=== PATIENT | female | born 2000 | race Hispanic/Latino ===

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

== ENCOUNTER 2019-03-19 21:02 | Emergency (ER) | payer BC, SELFPAY ==
[2019-03-19] MEDS ORDERED: ONDANSETRON 4 MG/2 ML VIAL ONE (21:52)
[2019-03-19] MEDS ORDERED: FAMOTIDINE 20 MG/2 ML VIAL IV ONE (21:52)
[2019-03-19 21:55] LABS: Absolute Lymphocytes (CBC) 2.5 K/uL (0.7-4.9); Basophils % 0.4 % (0-1.3); Hematocrit 41.8 % (36.0-45.0); Lymphocytes % 21.3 % (15.3-44.8); MPV 9.7 fL (7.6-11.3); RBC Red Blood Cell Count 4.53 M/uL (3.86-4.86)
[2019-03-19 22:10] LABS: ALT/SGPT 14 U/L (12-78); AST/SGOT 12 U/L (15-37); Albumin 4.1 g/dL (3.4-5.0); Alkaline Phosphatase 80 U/L (45-117); BUN Blood Urea Nitrogen 10 mg/dL (7-18); Bicarbonate 25 mmol/L (21-32); Bilirubin Direct 0.1 mg/dL (0-0.2); Bilirubin Total 0.5 mg/dL (0.2-1.0); Glucose Level 116 mg/dL (74-106); Lipase 171 U/L (73-393); Potassium 3.7 mmol/L (3.5-5.1); Protein, Total 7.1 g/dL (6.4-8.2); Sodium Level 142 mmol/L (136-145)
[2019-03-19] MEDS ORDERED: KETOROLAC 30 MG/ML INJ ONE (22:42)
[2019-03-19 23:02] LABS: Urine Specific Gravity 1.015 (1.005-1.030)
[2019-03-19 23:02] LABS: Urine Blood NEGATIVE (NEG); Urine Glucose TRACE (NEG); Urine Protein NEGATIVE (NEG); Urine Specific Gravity 1.015 (1.005-1.030)
[2019-03-19] MEDS ORDERED: CEFTRIAXONE/SWI 1gm 1 GM/10 ML SYR ONE (23:42)
--- NOTE | 2019-03-19 23:43 | ER ---
Nurse's Notes [facility] Name: Radha Kuhn Age: 18 yrs Sex: Female : 2000 Arrival Date: 03/19/2019 Time: 21:04 Bed 16 Private MD: Diagnosis: Other chest pain-wall;Urinary tract infection, site not specified Presentation: 03/19 21:09 Presenting complaint: Patient states: Her midsternal chest pain that radiates to the aj1 back, since 8:00 tonight and then 30 minutes later while she was walking home she started throwing up. Denies fever. Transition of care: patient was not received from another setting of care. Onset of symptoms was March 19, 2019 at 20:00. Risk Assessment: Do you want to hurt yourself or someone else? Patient reports no desire to harm self or others. Initial Sepsis Screen: Does the patient meet any 2 criteria? HR > 90 bpm. No. Patient's initial sepsis screen is negative. Does the patient have a suspected source of infection? No. Patient's initial sepsis screen is negative. Care prior to arrival: None. 21:09 Method Of Arrival: Ambulatory aj1 21:09 Acuity: BHAKTI 3 aj1 Triage Assessment: 21:11 General: Appears uncomfortable, Behavior is calm, cooperative, appropriate for age. aj1 Pain: Complains of pain in chest Pain radiates to back Pain currently is 5 out of 10 on a pain scale. Cardiovascular: Patient's skin is warm and dry. 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 - Social history:: Smoking status: Patient uses tobacco products, smokes one-half pack cigarettes per day, Patient/guardian denies using alcohol, street drugs. - Ebola Screening: : Patient denies travel to an Ebola-affected area in the 21 days before illness onset. - Family history:: not pertinent. Screenin:15 Abuse screen: Denies threats or abuse. Denies injuries from another. Nutritional aa1 screening: No deficits noted. Tuberculosis screening: No symptoms or risk factors identified. Fall Risk None identified. Assessment: 21:15 General: Appears in no apparent distress. General: Appears uncomfortable, Behavior is aa1 appropriate for age, crying. Pain: Complains of pain in chest Pain currently is 5 out of 10 on a pain scale. Quality of pain is described as pressure, Is intermittent. Neuro: Level of Consciousness is awake, alert, obeys commands, Oriented to person, place, time, situation, Moves all extremities. Full function Gait is steady. Cardiovascular: Reports chest pain, nausea, Heart tones S1 S2 present Capillary refill < 3 seconds Clubbing of nail beds is absent JVD is absent Patient's skin is warm and dry. Rhythm is regular Chest pain is described as vague, radiates back episodes are intermittent. Respiratory: Airway is patent Respiratory effort is even, unlabored, Respiratory pattern is regular, symmetrical, Breath sounds are clear bilaterally. GI: Abdomen is non-distended, Abd is soft and non tender X 4 quads. Reports nausea, vomiting. : No signs and/or symptoms were reported regarding the genitourinary system. EENT: No signs and/or symptoms were reported regarding the EENT system. Derm: Skin is intact, is healthy with good turgor, Skin is pink, warm \T\ dry. Musculoskeletal: Circulation, motion, and sensation intact. Capillary refill < 3 seconds, Range of motion: intact in all extremities. 22:00 Reassessment: Patient appears in no apparent distress at this time. Patient and/or aa1 family updated on plan of care and expected duration. Pain level reassessed. Patient is alert, oriented x 3, equal unlabored respirations, skin warm/dry/pink. Pt continues to await initial assessment from ERP. 22:53 Reassessment: Patient appears in no apparent distress at this time. Patient and/or aa1 family updated on plan of care and expected duration. Pain level reassessed. Patient is alert, oriented x 3, equal unlabored respirations, skin warm/dry/pink. Awaiting x-ray. 23:16 Reassessment: Patient appears in no apparent distress at this time. Patient is alert, aa1 oriented x 3, equal unlabored respirations, skin warm/dry/pink. Pt taken to x-ray at this time. 03/20 00:15 Reassessment: Patient appears in no apparent distress at this time. Patient is alert, aa1 oriented x 3, equal unlabored respirations, skin warm/dry/pink. Discussed d/c \T\ f/u instructions with pt \T\ mother; denies questions or concerns at this time. Ambulatory to lobby with steady gait Patient states feeling better. Patient states symptoms have improved. Vital Signs: 03/19 21:11 BP 130 / 98; Pulse 120; Resp 20; Temp 98.4; Pulse Ox 98% on R/A; Weight 65.77 kg (R); aj1 Height 4 ft. 11 in. (149.86 cm) (R); 21:37 BP 114 / 78; Pulse 94; Resp 20; Pulse Ox 100% on R/A; Pain 5/10; aa1 22:53 BP 120 / 73; Pulse 72; Resp 20; Pulse Ox 99% on R/A; Pain 2/10; aa1 03/20 00:15 BP 121 / 75; Pulse 76; Resp 16; Temp 98.1; Pulse Ox 100% on R/A; Pain 2/10; aa1 03/19 21:11 Body Mass Index 29.29 (65.77 kg, 149.86 cm) aj1 ED Course: 03/19 21:04 Patient arrived in ED. ds1 21:11 Triage completed. aj1 21:12 Shai Meyers MD is Attending Physician. eugenia 21:15 Patient has correct armband on for positive identification. Placed in gown. Bed in low aa1 position. Call light in reach. threat monitoring analyst on. Pulse ox on. NIBP on. Warm blanket given. 21:15 Patient maintains SpO2 saturation greater than 95% on room air. aa1 21:31 Anali Obregon, RN is Primary Nurse. aa1 21:45 Initial lab(s) drawn, by nh, sent to lab. EKG done, by ED staff, reviewed by Shai Meyers MD. Inserted saline lock: 20 gauge in left antecubital area, using aseptic technique. Blood collected. 22:09 D-Dimer Sent. ds4 22:09 Basic Metabolic Panel Sent. ds4 22:09 Hepatic Function Sent. ds4 22:09 Lipase Sent. ds4 22:23 Radiology exam delayed due to test not completed at this time. sw 23:45 Urine Culture Sent. aa1 03/20 00:15 No provider procedures requiring assistance completed. IV discontinued, intact, aa1 bleeding controlled, No redness/swelling at site. Pressure dressing applied. 00:57 Chest Pa And Lat (2 Views) XRAY In Process Unspecified. EDMS Administered Medications: 03/19 21:53 Drug: Pepcid 20 mg Route: IVP; Site: left antecubital; aa1 22:48 Follow up: Response: No adverse reaction; Marked relief of symptoms aa1 21:54 Drug: Zofran 4 mg Route: IVP; Site: left antecubital; aa1 22:48 Follow up: Response: No adverse reaction; Marked relief of symptoms aa1 22:47 Drug: TORadol 30 mg Route: IVP; Site: left antecubital; aa1 23:38 Follow up: Response: No adverse reaction; Pain is decreased aa1 22:47 CANCELLED (Duplicate Order): Pepcid 20 mg IVP once aa1 23:46 Drug: Rocephin 1 grams Route: IV; Rate: per protocol; Site: left antecubital; aa1 23:51 Follow up: IV Status: Completed infusion; IV Intake: 10ml aa1 Intake: 23:51 IV: 10ml; Total: 10ml. aa1 Outcome: 23:42 Discharge ordered by . eugeina 03/20 00:15 Discharged to home ambulatory, with family. aa1 Condition: good Discharge instructions given to patient, family, Instructed on discharge instructions, follow up and referral plans. medication usage, Demonstrated understanding of instructions, follow-up care, medications, Prescriptions given X 4. 00:16 Patient left the ED. aa1 Signatures: Dispatcher [employer] EDMS Kristin Ferraro, RN RN [email or web address] Anali Obregon RN RN aa1 Shai Meyers MD MD cha Sanford, Susan hsu1 Jimmie Gomez4 Flory Xiong
--- NOTE | 2019-03-19 23:43 | EDPHYS ---
Physician Documentation [facility] Name: Radha Kuhn Age: 18 yrs Sex: Female : 2000 Arrival Date: 03/19/2019 Time: 21:04 Bed 16 Private MD: ED Physician Shai Meyers HPI: 03/19 22:07 This 18 yrs old Female presents to ER via Ambulatory with complaints of Chest eugenia Pain, Nausea/Vomiting. 22:07 The patient or guardian reports chest pain that is located primarily in the anterior [facility] chest wall. The pain does not radiate. Associated signs and symptoms: The patient has no apparent associated signs or symptoms. The chest pain is described as aching. Duration: The patient or guardian reports multiple episodes, that wax and wane. Modifying factors: The symptoms are alleviated by remaining still, the symptoms are aggravated by activity, deep breath. Severity of pain: At its worst the pain was mild moderate in the emergency department the pain is unchanged. The patient has not experienced similar symptoms in the past. 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 - Social history:: Smoking status: Patient uses tobacco products, smokes one-half pack cigarettes per day, Patient/guardian denies using alcohol, street drugs. - Ebola Screening: : Patient denies travel to an Ebola-affected area in the 21 days before illness onset. - Family history:: not pertinent. ROS: 22:07 Constitutional: Negative for fever, chills, and weight loss, Eyes: Negative for injury, eugenia pain, redness, and discharge, ENT: Negative for injury, pain, and discharge, Neck: Negative for injury, pain, and swelling, Abdomen/GI: Negative for abdominal pain, nausea, vomiting, diarrhea, and constipation, Back: Negative for injury and pain, : Negative for injury, bleeding, discharge, and swelling, MS/Extremity: Negative for injury and deformity, Skin: Negative for injury, rash, and discoloration, Neuro: Negative for headache, weakness, numbness, tingling, and seizure, Psych: Negative for depression, anxiety, suicide ideation, homicidal ideation, and hallucinations, Allergy/Immunology: Negative for hives, rash, and allergies, Endocrine: Negative for neck swelling, polydipsia, polyuria, polyphagia, and marked weight changes, Hematologic/Lymphatic: Negative for swollen nodes, abnormal bleeding, and unusual bruising. 22:07 Cardiovascular: Positive for chest pain. 22:07 Respiratory: Positive for shortness of breath. Exam: 22:07 Constitutional: This is a well developed, well nourished patient who is awake, alert, eugenia and in no acute distress. Head/Face: Normocephalic, atraumatic. Eyes: Pupils equal round and reactive to light, extra-ocular motions intact. Lids and lashes normal. Conjunctiva and sclera are non-icteric and not injected. Cornea within normal limits. Periorbital areas with no swelling, redness, or edema. ENT: Nares patent. No nasal discharge, no septal abnormalities noted. Tympanic membranes are normal and external auditory canals are clear. Oropharynx with no redness, swelling, or masses, exudates, or evidence of obstruction, uvula midline. Mucous membranes moist. Neck: Trachea midline, no thyromegaly or masses palpated, and no cervical lymphadenopathy. Supple, full range of motion without nuchal rigidity, or vertebral point tenderness. No Meningismus. Chest/axilla: Normal chest wall appearance and motion. Nontender with no deformity. No lesions are appreciated. Cardiovascular: Regular rate and rhythm with a normal S1 and S2. No gallops, murmurs, or rubs. Normal PMI, no JVD. No pulse deficits. Respiratory: Lungs have equal breath sounds bilaterally, clear to auscultation and percussion. No rales, rhonchi or wheezes noted. No increased work of breathing, no retractions or nasal flaring. Abdomen/GI: Soft, non-tender, with normal bowel sounds. No distension or tympany. No guarding or rebound. No evidence of tenderness throughout. Back: No spinal tenderness. No costovertebral tenderness. Full range of motion. Skin: Warm, dry with normal turgor. Normal color with no rashes, no lesions, and no evidence of cellulitis. MS/ Extremity: Pulses equal, no cyanosis. Neurovascular intact. Full, normal range of motion. Neuro: Awake and alert, GCS 15, oriented to person, place, time, and situation. Cranial nerves II-XII grossly intact. Motor strength 5/5 in all extremities. Sensory grossly intact. Cerebellar exam normal. Normal gait. Psych: Awake, alert, with orientation to person, place and time. Behavior, mood, and affect are within normal limits. 22:07 Musculoskeletal/extremity: DVT Exam: No signs of deep vein thrombosis. no pain, no swelling, no tenderness, negative Homans' sign noted on exam, no appreciated bluish discoloration, no erythema, no increased warmth. Vital Signs: 21:11 BP 130 / 98; Pulse 120; Resp 20; Temp 98.4; Pulse Ox 98% on R/A; Weight 65.77 kg (R); aj1 Height 4 ft. 11 in. (149.86 cm) (R); 21:37 BP 114 / 78; Pulse 94; Resp 20; Pulse Ox 100% on R/A; Pain 5/10; aa1 22:53 BP 120 / 73; Pulse 72; Resp 20; Pulse Ox 99% on R/A; Pain 2/10; aa1 03/20 00:15 BP 121 / 75; Pulse 76; Resp 16; Temp 98.1; Pulse Ox 100% on R/A; Pain 2/10; aa1 03/19 21:11 Body Mass Index 29.29 (65.77 kg, 149.86 cm) [facility]DM: 03/19 21:12 Patient medically screened. [facility] 22:09 Data reviewed: vital signs, nurses notes, lab test result(s), EKG, radiologic studies, [facility] plain films. 03/19 21:37 Order name: Basic Metabolic Panel; Complete Time: 22:23 aa1 03/19 21:37 Order name: CBC with Diff; Complete Time: 22:23 [facility] 03/19 21:37 Order name: Hepatic Function; Complete Time: 22:23 aa 03/19 21:37 Order name: Lipase; Complete Time: 22:23 aa 03/19 22:04 Order name: D-Dimer; Complete Time: 22:56 [facility] 03/19 22:50 Order name: Urine --Ancillary (enter results); Complete Time: 23:26 ds4 03/19 22:06 Order name: Chest Pa And Lat (2 Views) XRAY [facility] 03/19 22:51 Order name: Urine Dipstick--Ancillary (enter results); Complete Time: 23:26 ds4 03/19 23:00 Order name: Troponin (emerg Dept Use Only); Complete Time: 23:26 [facility] 03/19 23:27 Order name: Urine Culture [facility] 03/19 21:37 Order name: IV Saline Lock; Complete Time: 21:50 [facility] 03/19 21:37 Order name: Labs collected and sent; Complete Time: 21:50 [facility] 03/19 21:37 Order name: EKG; Complete Time: 21:38 [facility] 03/19 21:37 Order name: EKG - Nurse/Tech; Complete Time: 21:49 [facility] 03/19 22:06 Order name: Urine Dipstick-Ancillary (obtain specimen); Complete Time: 22:41 [facility] 03/19 22:06 Order name: Urine Test (obtain specimen); Complete Time: 22:41 [facility] Administered Medications: 21:53 Drug: Pepcid 20 mg Route: IVP; Site: left antecubital; aa1 22:48 Follow up: Response: No adverse reaction; Marked relief of symptoms aa1 21:54 Drug: Zofran 4 mg Route: IVP; Site: left antecubital; aa1 22:48 Follow up: Response: No adverse reaction; Marked relief of symptoms aa1 22:47 Drug: TORadol 30 mg Route: IVP; Site: left antecubital; aa1 23:38 Follow up: Response: No adverse reaction; Pain is decreased aa1 22:47 CANCELLED (Duplicate Order): Pepcid 20 mg IVP once aa1 23:46 Drug: Rocephin 1 grams Route: IV; Rate: per protocol; Site: left antecubital; aa1 23:51 Follow up: IV Status: Completed infusion; IV Intake: 10ml aa1 Disposition: 03/19/19 23:42 Discharged to Home. Impression: Other chest pain - wall, Urinary tract infection, site not specified. - Condition is Stable. - Discharge Instructions: Nonspecific Chest Pain, Chest Wall Pain, Urinary Tract Infection, Adult, Urinary Tract Infection, Adult, [id number]. - Prescriptions for Ibuprofen 600 mg Oral Tablet - take 1 tablet by ORAL route every 8 hours As needed take with food; 21 tablet. Pepcid 20 mg Oral Tablet - take 1 tablet by ORAL route every 12 hours for 10 days; 20 tablet. Tylenol- Codeine #3 300-30 mg Oral Tablet - take 2 tablets by ORAL route every 6 hours As needed; 24 tablet. Bactrim DS 800- 160 mg Oral Tablet - take 1 tablet by ORAL route every 12 hours for 5 days; 10 tablet. - Medication Reconciliation Form, Thank You Letter, Antibiotic Education, Prescription Opioid Use form. - Follow up: Private Physician; When: 2 - 3 days; Reason: Recheck today's complaints, Continuance of care, Re-evaluation by your physician. - Problem is new. - Symptoms have improved. Signatures: Dispatcher [employer] EDKristin Goldman RN RN aj1 Anali Obregon RN RN aa1 Shai Meyers MD MD cha Corrections: (The following items were deleted from the chart) 22:47 22:11 Pepcid 20 mg IVP once ordered. [facility] aa 03/20 00:16 03/19 23:42 03/19/2019 23:42 Discharged to Home. Impression: Other chest pain - wall; aa1 Urinary tract infection, site not specified. Condition is Stable. Discharge Instructions: Nonspecific Chest Pain, Chest Wall Pain, Urinary Tract Infection, Adult, Urinary Tract Infection, Adult, [id number]. Prescriptions for Ibuprofen 600 mg Oral Tablet - take 1 tablet by ORAL route every 8 hours As needed take with food; 21 tablet, Pepcid 20 mg Oral Tablet - take 1 tablet by ORAL route every 12 hours for 10 days; 20 tablet, Tylenol-Codeine #3 300-30 mg Oral Tablet - take 2 tablets by ORAL route every 6 hours As needed; 24 tablet, Bactrim DS 800-160 mg Oral Tablet - take 1 tablet by ORAL route every 12 hours for 5 days; 10 tablet. and Forms are Medication Reconciliation Form, Thank You Letter, Antibiotic Education, Prescription Opioid Use. Follow up: Private Physician; When: 2 - 3 days; Reason: Recheck today's complaints, Continuance of care, Re-evaluation by your physician. Problem is new. Symptoms have improved. eugenia
[2019-03-20 00:48] VITALS: TEMP 98.4
[2019-03-20 00:51] VITALS: BP 120/73; O2SAT 99
--- NOTE | 2019-03-20 07:51 | EKG ---
Test Date: 2019-03-19 Test Time: 21:45:58 Tire Recapper: KARLY MEASUREMENT RESULTS: Intervals: Rate: 81 [place]: 142 QRSD: 72 QT: 342 QTc: 397 [place]ity: P: 35 [place]: 142 QRS: 27 T: 5 INTERPRETIVE STATEMENTS: Sinus rhythm with marked sinus arrhythmia Otherwise normal ECG Compared to ECG 12/16/2017 22:49:46 No significant changes Electronically Signed On 03-20-19 07:50:14 CDT by Milton Phillips
--- NOTE | 2019-03-20 07:58 | RAD REPORT ---
EXAM DESCRIPTION: Bianca Ferrer (2 Views)03/20/2019 12:57 am CLINICAL HISTORY: Chest pain COMPARISON: 2014 FINDINGS: The lungs appear clear of acute infiltrate. The heart is normal size IMPRESSION: No acute abnormalities displayed
== END 2019-03-20 00:16 | disposition home or self-care (01) ==
LOC: ER 21:02
DX: N39.0 Urinary tract infection, site not specified (principal); F17.210 Nicotine dependence, cigarettes, uncomplicated
CPT/HCPCS: 36415; 71046; 80048; 80076; 81003; 81025; 83690; 84484; 85025; 85379; 87086; 87088; 93005; 96374; 96375; 99285; J0696; J2405

== ENCOUNTER 2019-09-23 17:58 | Emergency (ER) | payer OTHER, SELFPAY ==
[2019-09-23 18:41] LABS: Urine Bacteria <20 /HPF (<20); Urine Culture Reflex Order REFLEXED; Urine RBC NONE SEEN /HPF (NONE SEEN); Urine Trichomonas PRESENT (NONE SEEN)
[2019-09-23 18:43] LABS: Urine Blood NEGATIVE (NEG); Urine Glucose NEGATIVE (NEG); Urine Protein NEGATIVE (NEG); Urine Specific Gravity 1.025 (1.005-1.030)
[2019-09-23] MEDS ORDERED: ACETAMINOPHEN 325 MG TABLET ONE (19:17)
[2019-09-23 19:18] LABS: Absolute Lymphocytes (CBC) 2.9 K/uL (0.7-4.9); Basophils % 0.7 % (0-1.3); Hematocrit 43.3 % (36.0-45.0); RBC Red Blood Cell Count 4.74 M/uL (3.86-4.86)
[2019-09-23 19:49] LABS: BUN Blood Urea Nitrogen 6 mg/dL (7-18); Bicarbonate 24 mmol/L (21-32); Glucose Level 98 mg/dL (74-106); HCG, Quantitative 9631 mIU/mL (1-3); Potassium 3.6 mmol/L (3.5-5.1); Sodium Level 139 mmol/L (136-145)
--- NOTE | 2019-09-23 21:10 | ER ---
Nurse's Notes [facility] Name: Radha Kuhn Age: 18 yrs Sex: Female : 2000 Arrival Date: 09/23/2019 Time: 17:59 Bed 20 Private MD: Diagnosis: related conditions, unspecified;Lower abdominal pain, unspecified;Trichomoniasis, unspecified Presentation: 09/22 18:07 Chief complaint: Patient states: About 6 weeks . G1, P0. Started having lower ll1 abdominal pain. + N/V. No fever or cough. Coronavirus screen: Proceed with normal triage. Patient denies a cough. Patient denies shortness of breath or difficulty breathing. Patient denies measured and/or subjective temperature greater than 100.4F prior to today's visit. Patient denies travel on a cruise ship or to a country the [facility] currently lists as an affected area. Patient denies contact with known and/or suspected case of COVID-19. Ebola Screen: Patient denies travel to an Ebola-affected area in the 21 days before illness onset. Initial Sepsis Screen: Does the patient meet any 2 criteria? No. Patient's initial sepsis screen is negative. Does the patient have a suspected source of infection? No. Patient's initial sepsis screen is negative. Risk Assessment: Do you want to hurt yourself or someone else? Patient reports no desire to harm self or others. 18:07 Method Of Arrival: Ambulatory ll1 18:07 Acuity: BHAKTI 3 ll1 19:33 Onset of symptoms is unknown. SUPERVISOR EXTRUSION: 19:33 Full Term 0, Premature 0, 0, Living 0, LMP 08/11/2019 Historical: - Allergies: 18:09 No Known Drug Allergies; ll1 - PMHx: 18:09 Anxiety; Depression; Headaches; ll1 - PSHx: 18:09 None; ll1 - Social history:: Smoking status: Patient denies any tobacco usage or history of. Patient uses street drugs, marijuana, Patient/guardian denies using alcohol. Screenin:32 Abuse screen: Denies threats or abuse. Nutritional screening: No deficits noted. Tuberculosis screening: No symptoms or risk factors identified. Fall Risk None identified. Assessment: 18:15 General: Appears in no apparent distress. Behavior is calm, cooperative. Pain: Denies pain. Neuro: Level of Consciousness is awake, alert, Oriented to person, place, time, situation. Cardiovascular: Heart tones S1 S2 present Capillary refill < 3 seconds Patient's skin is warm and dry. Respiratory: Airway is patent Respiratory effort is even, unlabored, Respiratory pattern is regular, symmetrical. GI: Bowel sounds present X 4 quads. Reports lower abdominal pain, cramping. : Urine is clear, Reports burning with urination. EENT: No signs and/or symptoms were reported regarding the EENT system. Derm: No signs and/or symptoms reported regarding the dermatologic system. Musculoskeletal: No signs and/or symptoms reported regarding the musculoskeletal system. 19:05 Reassessment: Patient and/or family updated on plan of care and expected duration. Pain ah level reassessed. IV started at this time and blood sent to lab. Pt medicated with Tylenol per orders. No other needs voiced. Pt informed she would have an ultrasound. 20:52 Reassessment: Veterinarian Epidemiologist in room with pt at this time. 21:40 Reassessment: Medications given at this time. IM injection to R glut. Informed Pt she ah would wait 15 min until discharge to verify no reaction to the medication. Pt has no questions at this time. IV removed. 21:55 Reassessment: Pt given DC papers at this time. No adverse reactions noted to medications. Education provided about follow up and prescriptions. Vital Signs: 18:07 BP 134 / 83; Pulse 74; Resp 17; Temp 98.5; Pulse Ox 99% ; Pain 5/10; ll1 19:12 BP 122 / 71; Pulse 74; Resp 16; Pulse Ox 100% ; ah 19:15 BP 116 / 73; Pulse 67; Resp 18; Pulse Ox 100% ; ah 20:00 BP 117 / 71; Pulse 67; Resp 16; Pulse Ox 99% ; ah ED Course: 17:59 Patient arrived in ED. am2 18:01 Shai Cornejo PA is PHCP. cp 18:01 Shai Meyers MD is Attending Physician. cp 18:08 Triage completed. ll1 18:09 Arm band placed on Patient placed in an exam room, on a stretcher. 1 18:11 Edita Phillips, RN is Primary Nurse. 19:05 Inserted saline lock: 22 gauge in right hand, using aseptic technique. 19:33 Patient has correct armband on for positive identification. Bed in low position. Call light in reach. Side rails up X 1. 21:09 Romaine Gordillo MD is Referral Physician. 21:40 Transvaginal Ob In Process Unspecified. EDMS 21:47 No provider procedures requiring assistance completed. IV discontinued, intact, bleeding controlled, No redness/swelling at site. Pressure dressing applied. Administered Medications: 19:14 Drug: Tylenol 650 mg Route: PO; 20:37 Follow up: Response: No adverse reaction 21:43 Drug: Rocephin (cefTRIAXone) 250 mg Route: IM; Site: right ventrogluteal; 22:27 Follow up: Response: No adverse reaction 21:43 Drug: Zithromax 1 grams Route: PO; 22:27 Follow up: Response: No adverse reaction 21:43 Drug: metroNIDAZOLE 2 grams Route: PO; 22:27 Follow up: Response: No adverse reaction Outcome: 21:10 Discharge ordered by MD. 22:00 Discharged to home ambulatory. 22:00 Condition: good 22:00 Discharge instructions given to patient, Instructed on discharge instructions, follow up and referral plans. medication usage, Demonstrated understanding of instructions, follow-up care, medications, Prescriptions given X 1. 22:03 Patient left the ED. Signatures: Dispatcher [employer] EDWI Shai Cornejo PA PA cp Moreno, Amanda am2 Edita Phillips, RN RN Erick Dobson RN RN ll1
--- NOTE | 2019-09-23 21:11 | EDPHYS ---
Physician Documentation [facility] Name: Radha Kuhn Age: 18 yrs Sex: Female : 2000 Arrival Date: 09/23/2019 Time: 17:59 Bed 20 Private MD: ED Physician Shai Meyers HPI: 09/22 18:20 This 18 yrs old Female presents to ER via Ambulatory with complaints of cp Abdominal Pain - low. 18:20 The patient presents with abdominal pain in the lower abdomen. Onset: The cp symptoms/episode began/occurred 2 day(s) ago. The symptoms do not radiate. The symptoms are described as crampy. 18:20 Associated signs and symptoms: Pertinent negatives: constipation, diarrhea, dysuria, cp fever, vaginal discharge, vomiting, vaginal bleeding. 18:20 Patient reports being approximately 6 weeks after taking home test. cp No care received. Patient and LMP was May 2019. 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 Patient uses street drugs, marijuana, Patient/guardian denies using alcohol. ROS: 18:30 Constitutional: Negative for body aches, chills, fever, poor PO intake. cp 18:30 Eyes: Negative for injury, pain, redness, and discharge. cp 18:30 ENT: Negative for drainage from ear(s), ear pain, sore throat, difficulty swallowing, difficulty handling secretions. 18:30 Cardiovascular: Negative for chest pain. 18:30 Respiratory: Negative for cough, shortness of breath, wheezing. 18:30 Abdomen/GI: Positive for abdominal cramps, of the right lower quadrant and left lower quadrant, Negative for vomiting, diarrhea, constipation. 18:30 : Negative for urinary symptoms, flank pain, vaginal bleeding, vaginal discharge. 18:30 Neuro: Negative for dizziness, headache, weakness. 18:30 All other systems are negative. Exam: 18:35 Constitutional: The patient appears in no acute distress, alert, awake, comfortable, cp non-toxic, well developed, well nourished. 18:35 Head/Face: Normocephalic, atraumatic. cp 18:35 Eyes: Periorbital structures: appear normal, Conjunctiva: normal, no exudate, no injection, Sclera: no appreciated abnormality, Lids and lashes: appear normal, bilaterally. 18:35 ENT: External ear(s): are unremarkable, Nose: is normal, Mouth: Lips: moist, Oral mucosa: pink and intact, moist, Posterior pharynx: is normal, airway is patent, no erythema, no exudate. 18:35 Chest/axilla: Inspection: normal, Palpation: is normal, no crepitus, no tenderness. 18:35 Cardiovascular: Rate: normal, Rhythm: regular. 18:35 Respiratory: the patient does not display signs of respiratory distress, Respirations: normal, no use of accessory muscles, no retractions, labored breathing, is not present, Breath sounds: are clear throughout, no decreased breath sounds. 18:35 Abdomen/GI: Inspection: abdomen appears normal, Bowel sounds: active, all quadrants, Palpation: soft, in all quadrants, mild abdominal tenderness, in the right lower quadrant and left lower quadrant, rebound tenderness, is not appreciated, voluntary guarding, is not appreciated, involuntary guarding, is not appreciated. 18:35 Back: pain, is absent, ROM is normal. Vital Signs: 18:07 BP 134 / 83; Pulse 74; Resp 17; Temp 98.5; Pulse Ox 99% ; Pain 5/10; ll1 19:12 BP 122 / 71; Pulse 74; Resp 16; Pulse Ox 100% ; ah 19:15 BP 116 / 73; Pulse 67; Resp 18; Pulse Ox 100% ; ah 20:00 BP 117 / 71; Pulse 67; Resp 16; Pulse Ox 99% ; ah MDM: 18:11 Patient medically screened. cp 18:33 Patient medically screened. eugenia 19:00 Differential diagnosis: Ectopic , non-specific abd pain, Ovarian Torsion, cp Pelvic Inflammatory Disease, Pyelonephritis, Tubal Ovarian Abcess, Ureterolithiasis, urinary tract infection, threatened miscarriage, miscarriage. 21:10 Data reviewed: vital signs, nurses notes, lab test result(s), radiologic studies, cp ultrasound, and as a result, I will discharge patient. 21:10 Counseling: I had a detailed discussion with the patient and/or guardian regarding: the cp historical points, exam findings, and any diagnostic results supporting the discharge/admit diagnosis, lab results, radiology results, the need for outpatient follow up, an OB/Gyne specialist, to return to the emergency department if symptoms worsen or persist or if there are any questions or concerns that arise at home. Response to treatment: the patient's symptoms have markedly improved after treatment, and as a result, I will discharge patient. Special discussion: Based on the patient's Hx, exam, and Dx evaluation, there is no indication for emergent surgery or inpatient Tx. It is understood by the patient/guardian that if the Sx's persist or worsen they need to return immediately for re-evaluation. ED course: VSS. Will discharge to home for continued monitoring with pelvic rest precautions. 09/22 18:17 Order name: Urine Microscopic Only; Complete Time: 18:58 09/22 18:58 Interpretation: Normal except: UWBC 5-10; SQEPI 5-10; TRICH PRESENT. 09/22 18:29 Order name: Quantitative Hcg; Complete Time: 20:16 09/22 20:16 Interpretation: HCGQ 9631; Reviewed. 09/22 18:29 Order name: Abo/rh Typing; Complete Time: 20:16 09/22 21:08 Interpretation: Reviewed. 09/22 18:29 Order name: Basic Metabolic Panel; Complete Time: 20:16 cp 09/22 21:07 Interpretation: Normal except: CL 108; BUN 6; CRE 0.54. 09/22 18:29 Order name: CBC with Diff; Complete Time: 20:16 cp 09/22 21:08 Interpretation: Normal except: WBC 13.6; EOSA 0.6; NEUT A 8.9. 09/22 18:35 Order name: Urine Dipstick--Ancillary (enter results); Complete Time: 18:58 eb 09/22 18:17 Order name: Urine Dipstick-Ancillary (obtain specimen); Complete Time: 18:26 cp 09/22 18:35 Order name: Urine --Ancillary (enter results); Complete Time: 18:58 eb 09/22 18:42 Order name: Urine Culture EDIN 09/22 18:59 Order name: US Transvaginal Ob 09/22 18:17 Order name: Urine Test (obtain specimen); Complete Time: 18:26 cp 09/22 18:29 Order name: IV Saline Lock; Complete Time: 19:15 cp 09/22 18:29 Order name: Labs collected and sent; Complete Time: 19:15 cp 09/22 18:29 Order name: NPO; Complete Time: 19:14 cp Administered Medications: 19:14 Drug: Tylenol 650 mg Route: PO; 20:37 Follow up: Response: No adverse reaction 21:43 Drug: Rocephin (cefTRIAXone) 250 mg Route: IM; Site: right ventrogluteal; ah 22:27 Follow up: Response: No adverse reaction 21:43 Drug: Zithromax 1 grams Route: PO; ah 22:27 Follow up: Response: No adverse reaction 21:43 Drug: metroNIDAZOLE 2 grams Route: PO; 22:27 Follow up: Response: No adverse reaction ah Disposition: 09/23/19 21:10 Discharged to Home. Impression: related conditions, unspecified, Lower abdominal pain, unspecified, Trichomoniasis, unspecified. - Condition is Stable. - Discharge Instructions: Abdominal Pain During , Trichomoniasis, First Trimester of , Pelvic Rest. - Prescriptions for Vitamin 27- 0.8 mg Oral Tablet - take 1 tablet by ORAL route once daily; 60 tablet. - Medication Reconciliation Form, Thank You Letter, Antibiotic Education, Prescription Opioid Use form. - Follow up: Romaine Gordillo MD; When: 2 - 3 days; Reason: Recheck today's complaints. - Problem is new. - Symptoms have improved. Addendum: 09/25/2019 09:54 Co-signature as Attending Physician, Shai Meyers MD I agree with the assessment and c pollard plan of care. Signatures: Dispatcher [employer] Shai Rice MD MD cha Page, Corey, PA PA cp Harris, Amy, RN RN Erick Dobson RN RN ll1 Corrections: (The following items were deleted from the chart) 09/22 21:08 21:08 Normal except: WBC 13.6. cp cp 22:03 21:10 09/23/2019 21:10 Discharged to Home. Impression: related conditions, ah unspecified; Lower abdominal pain, unspecified; Trichomoniasis, unspecified. Condition is Stable. Forms are Medication Reconciliation Form, Thank You Letter, Antibiotic Education, Prescription Opioid Use. Follow up: Romaine Gordillo; When: 2 - 3 days; Reason: Recheck today's complaints. Problem is new. Symptoms have improved. cp
[2019-09-23] MEDS ORDERED: metroNIDAZOLE 500 MG TABLET ONE (21:24)
[2019-09-23] MEDS ORDERED: AZITHROMYCIN 250 MG TAB ONE (21:24)
[2019-09-23] MEDS ORDERED: CEFTRIAXONE 250 MG/VIAL ONE (21:25)
[2019-09-23] MEDS ORDERED: LIDOCAINE 1% MPF 2 ML AMPULE ONE (21:37)
[2019-09-23 22:15] VITALS: TEMP 98.5
[2019-09-23 22:29] VITALS: BP 117/71; O2SAT 99
--- NOTE | 2019-09-24 09:29 | RAD REPORT ---
EXAM DESCRIPTION: US - Transvaginal OB - 09/23/2019 9:40 pm CLINICAL HISTORY: ABD CRAMPING, COMPARISON: No comparisons TECHNIQUE: Endovaginal sonography performed. FINDINGS: Oval-shaped fluid collection is seen in the fundal portion of the endometrial cavity. This has the appearance of a normal gestational sac. No yolk sac or pole visible. Average sac diame ter corresponds to a 5 week 5 day size gestational. No hematoma or other focal finding in the endomet rial cavity. Uterus has a normal shape. No myometrial mass identified. No adnexal mass to suspect ectopic . Both ovaries are identifiable with normal blood flow se en on Doppler evaluation. No blood or fluid in the cul de sac. Preliminary findings were provided at the time of the study. IMPRESSION: A 5 week 5 day sized gestational sac is present with no yolk sac or pole. No adnexal abnormality. Follow-up sonography can be performed if serial HCG values indicate ongoing .
== END 2019-09-23 22:03 | disposition home or self-care (01) ==
LOC: ER 17:58
DX: O98.811 Other maternal infectious and parasitic diseases complicating pregnancy, first trimester (principal); A59.9 Trichomoniasis, unspecified; Z3A.01 Less than 8 weeks gestation of pregnancy
CPT/HCPCS: 87088; 85025; 87086; 80048; 36415; 86900; 81025; 86901; 84702; 76817; 96372; 99284; J2001; J0696; 81003; 81015

== ENCOUNTER 2019-10-14 12:47 | Emergency (ER) | payer OTHER ==
[2019-10-14 13:48] LABS: Urine Blood NEGATIVE (NEG); Urine Glucose NEGATIVE (NEG); Urine Protein 2+ (NEG); Urine pH 8.5 (5.0-7.0)
[2019-10-14] MEDS ORDERED: NA CHLORIDE 0.9% 1,000 ML ONE (13:49)
[2019-10-14 13:56] LABS: Absolute Lymphocytes (CBC) 1.4 K/uL (0.7-4.9); Basophils % 0.4 % (0-1.3); Hematocrit 42.8 % (36.0-45.0); MPV 10.5 fL (7.6-11.3); RBC Red Blood Cell Count 4.69 M/uL (3.86-4.86)
[2019-10-14 14:04] LABS: Urine Bacteria >50 /HPF (<20); Urine Culture Reflex Order NOT NEEDED; Urine Mucus HEAVY /HPF (NONE SEEN); Urine RBC <5 /HPF (NONE SEEN)
[2019-10-14 14:17] LABS: Blood Morphology Comment NOT SEEN (NOT SEEN); Platelet Estimate ADEQ
[2019-10-14 14:26] LABS: BUN Blood Urea Nitrogen 8 mg/dL (7-18); Bicarbonate 21 mmol/L (21-32); Glucose Level 99 mg/dL (74-106); HCG, Quantitative 75384 mIU/mL (1-3); Potassium 4.1 mmol/L (3.5-5.1); Sodium Level 137 mmol/L (136-145)
--- NOTE | 2019-10-14 14:34 | RAD REPORT ---
EXAM DESCRIPTION: US - Matter Eval Tm 1 - 10/14/2019 2:10 pm CLINICAL HISTORY: , abdominal pain COMPARISON: None. FINDINGS: A single intrauterine gestation is identified. Heart rate is 164 bpm. No hematoma, mass or other suspicious finding. [place]-rump length measurement corresponds to a 8 W 5 D age. LORENA is 020. No suspicion for placental abnormality. Gestational sac has normal configuration. Both ovaries are identified, normal in size, and show normal blood flow within the stroma on Doppler assessment. IMPRESSION: Single AP W 5 D intrauterine gestation. LORENA is 05/20/2020. No gestational sac, uterine or adnexal abnormalities.
--- NOTE | 2019-10-14 14:36 | EDPHYS ---
Physician Documentation [facility] Name: Radha Kuhn Age: 19 yrs Sex: Female : 2000 Arrival Date: 10/14/2019 Time: 12:53 Bed 5 Private MD: Barney Alfaro ED Physician Karan Reina HPI: 10/13 13:23 This 19 yrs old Female presents to ER via Ambulatory with complaints of rn Nausea/Vomiting, General Weakness. 13:23 The patient presents to the emergency department with nausea, vomiting. Onset: The rn symptoms/episode began/occurred 3 day(s) ago. Possible causes: . The symptoms are aggravated by food , The symptoms are alleviated by nothing. Severity of symptoms: At their worst the symptoms were moderate in the emergency department the symptoms have improved. The patient has not experienced similar symptoms in the past. The patient has not recently seen a physician. Reports nausea/vomiting has increased over last few days, is 8 weeks , no fever, + 2 loose stools recently without blood. + lower abd cramps but no vaginal bleeding. No trauma. Called her OB her called her in nausea medication, took and and feels better but still mild nausea. Feels generalized weakness. . 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 - Social history:: Smoking status: Patient denies any tobacco usage or history of. - Family history:: not pertinent. - Hospitalizations: : No recent hospitalization is reported. ROS: 13:23 Constitutional: Negative for fever, chills, and weight loss, Eyes: Negative for injury, rn pain, redness, and discharge, Neck: Negative for injury, pain, and swelling, Cardiovascular: Negative for chest pain, palpitations, and edema, Respiratory: Negative for shortness of breath, cough, wheezing, and pleuritic chest pain, Abdomen/GI: + abd cramping, + nausea/vomiting/diarrhea Back: Negative for injury and pain, : Negative for injury, bleeding, discharge, and swelling, MS/Extremity: Negative for injury and deformity, Neuro: Negative for headache, numbness, tingling, and seizure. Exam: 13:23 Constitutional: This is a well developed, well nourished patient who is awake, alert, rn and in no acute distress. Head/Face: Normocephalic, atraumatic. ENT: dry MM Neck: Trachea midline, no thyromegaly or masses palpated, and no cervical lymphadenopathy. Supple, full range of motion without nuchal rigidity, or vertebral point tenderness. No Meningismus. Cardiovascular: Regular rate and rhythm. No pulse deficits. Respiratory: Speaking full sentences, no labored breathing Abdomen/GI: soft, non-tender Skin: Warm, dry MS/ Extremity: Pulses equal, no cyanosis. Neuro: Awake and alert, GCS 15, oriented to person, place, time, and situation. Cranial nerves II-XII grossly intact. Motor strength 5/5 in all extremities. Sensory grossly intact. Cerebellar exam normal Vital Signs: 13:02 BP 127 / 53; Pulse 68; Resp 16 S; Temp 97.(TE); Pulse Ox 100% on R/A; Weight 65.77 kg ca1 (R); Height 4 ft. 11 in. (149.86 cm) (R); Pain 5/10; 13:56 BP 148 / 66; Pulse 100; Resp 17; Pulse Ox 99% ; bp 14:57 BP 104 / 45; Pulse 64; Resp 17; Pulse Ox 100% ; bp 13:02 Body Mass Index 29.29 (65.77 kg, 149.86 cm) ca1 MDM: 13:07 Patient medically screened. rn 14:31 Differential diagnosis: viral gastroenteritis, gastroenteritis, UTI. Data reviewed: rn vital signs, nurses notes, lab test result(s), and as a result, I will discharge patient. Data reviewed: radiologic studies, ultrasound. Counseling: I had a detailed discussion with the patient and/or guardian regarding: the historical points, exam findings, and any diagnostic results supporting the discharge/admit diagnosis, lab results, radiology results, the need for outpatient follow up, to return to the emergency department if symptoms worsen or persist or if there are any questions or concerns that arise at home. Special discussion: I discussed with the patient/guardian in detail that at this point there is no indication for admission to the hospital. It is understood, however, that if the symptoms persist or worsen the patient needs to return immediately for re-evaluation. Based on the history and exam findings, there is no indication for further emergent testing or inpatient evaluation. I discussed with the patient/guardian the need to see the OB Gyne specialist for further evaluation of the symptoms. ED course: Reports feels better, + elevated WBC but no focus of infection other than possible enteritis given vomiting and diarrhea worse over last few days. Re-examined abdomen and still no tenderness on exam, specifically , no RUQ tenderness or RLQ tenderness, neg bond. Will treat as UTI, given fluids, will f/u with OB for further management. Return precautions given and understood. . 10/13 13:18 Order name: CBC with Diff; Complete Time: 14:27 10/13 13:18 Order name: Basic Metabolic Panel; Complete Time: 14:27 10/13 13:18 Order name: Urine Microscopic Only; Complete Time: 14:04 10/13 13:18 Order name: HCG-Quantitative; Complete Time: 14:27 10/13 13:42 Order name: Urine Dipstick--Ancillary (enter results); Complete Time: 13:50 tt3 10/13 13:42 Order name: Urine --Ancillary (enter results); Complete Time: 13:50 tt3 10/13 13:18 Order name: IV Start; Complete Time: 13:44 10/13 13:18 Order name: Urine Dipstick-Ancillary (obtain specimen); Complete Time: 13:46 10/13 14:11 Order name: Matter Eval Tm 1; Complete Time: 14:36 EDMS 10/13 14:36 Interpretation: No acute disease. 10/13 14:17 Order name: Manual Differential; Complete Time: 14:27 EDMS Administered Medications: 13:40 Drug: NS 0.9% 1000 ml Route: IV; Rate: 1000 ml; Site: right hand; bp 14:59 Follow up: IV Status: Completed infusion; IV Intake: 1000ml bp Disposition: 10/14/19 14:35 Discharged to Home. Impression: Nausea with vomiting, unspecified, Dehydration, related conditions, unspecified, first trimester, Urinary tract infection, site not specified. - Condition is Stable. - Discharge Instructions: Dehydration, Adult, Urinary Tract Infection, Adult, and Urinary Tract Infection. - Prescriptions for Macrobid 100 mg Oral Capsule - take 1 capsule by ORAL route every 12 hours for 7 days; 14 capsule. - Medication Reconciliation Form, Thank You Letter, Antibiotic Education, Prescription Opioid Use form. - Follow up: Private Physician; When: As needed; Reason: Recheck today's complaints, Re-evaluation by your physician. - Problem is new. - Symptoms have improved. Signatures: Dispatcher [employer] [facility] Karan Reina MD MD rn Kenji Bone, RN RN bp Acob, Maribell RN RN ca1 Corrections: (The following items were deleted from the chart) 14:11 13:18 OB Limited+US.RAD.BRZ ordered. [facility] 14:35 14:35 10/14/2019 14:35 Discharged to Home. Impression: Nausea with vomiting, rn unspecified; Dehydration; related conditions, unspecified, first trimester. Condition is Stable. Forms are Medication Reconciliation Form, Thank You Letter, Antibiotic Education, Prescription Opioid Use. Follow up: Private Physician; When: As needed; Reason: Recheck today's complaints, Re-evaluation by your physician. Problem is new. Symptoms have improved. rn 14:59 14:35 10/14/2019 14:35 Discharged to Home. Impression: Nausea with vomiting, bp unspecified; Dehydration; related conditions, unspecified, first trimester; Urinary tract infection, site not specified. Condition is Stable. Forms are Medication Reconciliation Form, Thank You Letter, Antibiotic Education, Prescription Opioid Use. Follow up: Private Physician; When: As needed; Reason: Recheck today's complaints, Re-evaluation by your physician. Problem is new. Symptoms have improved. rn
--- NOTE | 2019-10-14 14:36 | ER ---
Nurse's Notes [facility] Name: Radha Kuhn Age: 19 yrs Sex: Female : 2000 Arrival Date: 10/14/2019 Time: 12:53 Bed 5 Private MD: Barney Alfaro Diagnosis: Nausea with vomiting, unspecified;Dehydration; related conditions, unspecified, first trimester;Urinary tract infection, site not specified Presentation: 10/13 13:02 Chief complaint: Patient states: Vomiting since 0800 today. Took nausea medication, ca1 felt better but still nauseated. Reports throbbing pain on R ear and R side of face. Denies abdl pain. Reports diarrhea. Pt 8 weeks . Coronavirus screen: Proceed with normal triage. Patient denies a cough. Patient denies shortness of breath or difficulty breathing. Patient denies measured and/or subjective temperature greater than 100.4F prior to today's visit. Patient denies travel on a cruise ship or to a country the [facility] currently lists as an affected area. Patient denies contact with known and/or suspected case of COVID-19. Ebola Screen: Patient negative for fever greater than or equal to 101.5 degrees Fahrenheit, and additional compatible Ebola Virus Disease symptoms Patient denies exposure to infectious person. Patient denies travel to an Ebola-affected area in the 21 days before illness onset. No symptoms or risks identified at this time. Initial Sepsis Screen: Does the patient meet any 2 criteria? No. Patient's initial sepsis screen is negative. Does the patient have a suspected source of infection? No. Patient's initial sepsis screen is negative. Risk Assessment: Do you want to hurt yourself or someone else? Patient reports no desire to harm self or others. Onset of symptoms was October 14, 2019. 13:02 Method Of Arrival: Ambulatory ca1 13:02 Acuity: BHAKTI 3 ca1 Triage Assessment: 13:05 General: Appears in no apparent distress. comfortable, Behavior is cooperative, bp appropriate for age, anxious. Pain: Denies pain. EENT: No deficits noted. Neuro: No deficits noted. Cardiovascular: No deficits noted. Respiratory: No deficits noted. GI: Reports nausea, vomiting. : No signs and/or symptoms were reported regarding the genitourinary system. Derm: No deficits noted. Musculoskeletal: No deficits noted. 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 - Social history:: Smoking status: Patient denies any tobacco usage or history of. - Family history:: not pertinent. - Hospitalizations: : No recent hospitalization is reported. Screenin:26 Abuse screen: Denies threats or abuse. Denies injuries from another. Nutritional bp screening: No deficits noted. Tuberculosis screening: No symptoms or risk factors identified. Fall Risk None identified. Assessment: 13:05 General: SEE TRIAGE NOTE. GI: Abdomen is non-distended. bp 13:45 Reassessment: U/S AT B/S. bp 14:57 Reassessment: PT D/C HOME AMBULATORY, DX WITH UTI. bp Vital Signs: 13:02 BP 127 / 53; Pulse 68; Resp 16 S; Temp 97.(TE); Pulse Ox 100% on R/A; Weight 65.77 kg ca1 (R); Height 4 ft. 11 in. (149.86 cm) (R); Pain 5/10; 13:56 BP 148 / 66; Pulse 100; Resp 17; Pulse Ox 99% ; bp 14:57 BP 104 / 45; Pulse 64; Resp 17; Pulse Ox 100% ; bp 13:02 Body Mass Index 29.29 (65.77 kg, 149.86 cm) ca1 ED Course: 12:53 Patient arrived in ED. am2 12:53 Barney Alfaro MD is Private Physician. am2 13:05 Triage completed. ca1 13:05 Arm band placed on right wrist. ca1 13:07 Karan Reina MD is Attending Physician. rn 13:08 Kenji Bone, [place] is Primary Nurse. bp 13:26 Patient has correct armband on for positive identification. Bed in low position. Call bp light in reach. Side rails up X2. 13:40 Inserted saline lock: 20 gauge in right hand, using aseptic technique. Blood collected. bp 14:07 Ultrasound completed. Patient tolerated well. Notified ED Physician yany. sg3 14:57 No provider procedures requiring assistance completed. IV discontinued, intact, bp bleeding controlled, No redness/swelling at site. Pressure dressing applied. Administered Medications: 13:40 Drug: NS 0.9% 1000 ml Route: IV; Rate: 1000 ml; Site: right hand; bp 14:59 Follow up: IV Status: Completed infusion; IV Intake: 1000ml bp Intake: 14:59 IV: 1000ml; Total: 1000ml. bp Outcome: 14:35 Discharge ordered by . rn 14:57 Discharged to home ambulatory. bp 14:57 Condition: stable 14:57 Discharge instructions given to patient, Instructed on discharge instructions, follow up and referral plans. medication usage, Demonstrated understanding of instructions, follow-up care, medications, Prescriptions given X 1. 14:59 Patient left the ED. bp Signatures: Dispatcher [employer] EDMS Karan Reina MD MD rn Moreno, Amanda am2 Kenji Bone RN RN bp Britt Copeland sg3 Maribell Batista RN RN ca1 Corrections: (The following items were deleted from the chart) 13:06 13:02 Chief complaint: Patient states: Vomiting since 0800 today. Took nausea ca1 medication, felt better but still nauseated. Reports throbbing pain on R ear and R side of face. Denies abdl pain. Reports diarrhea. ca1 13:06 13:02 Acuity: BHAKTI 4 ca1 ca1 14:11 14:06 In radiology for OB Limited+US.DIYA. EDMS EDMS
== END 2019-10-14 14:59 | disposition home or self-care (01) ==
LOC: ER 12:47
DX: O23.41 Unspecified infection of urinary tract in pregnancy, first trimester (principal); O99.281 Endocrine, nutritional and metabolic diseases complicating pregnancy, first trimester; E86.0 Dehydration; Z3A.08 8 weeks gestation of pregnancy
CPT/HCPCS: 85025; 80048; 36415; 81025; 84702; 76801; 96360; 99284; J7030; 81003; 81015

== ENCOUNTER 2020-01-07 16:23 | Emergency (ER) | payer OTHER ==
--- NOTE | 2020-01-07 17:29 | EDPHYS ---
Physician Documentation [facility] Name: Radha Kuhn Age: 19 yrs Sex: Female : 2000 Arrival Date: 01/07/2020 Time: 16:26 Bed 17 Private MD: ED Physician Karan Reina HPI: 01/06 16:55 This 19 yrs old Female presents to ER via Ambulatory with complaints of Low jmm Back Pain, 21 weeks . 16:55 The patient presents with pain that is chronic, with no known mechanism of injury. The jmm symptoms are located in the low back. The pain radiates to the lateral aspect of right thigh. Onset: The symptoms/episode began/occurred gradually, 2 week(s) ago. Modifying factors: The patient symptoms are alleviated by remaining still, the patient symptoms are aggravated by movement. Associated signs and symptoms: Pertinent negatives: abdominal pain, chest pain, dysuria, fever, headache, hematuria, incontinence, nausea, numbness, tingling, urinary retention, vomiting, weakness. 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 - Social history:: Smoking status: Patient denies any tobacco usage or history of. ROS: 16:55 Constitutional: Negative for fever, chills, and weight loss, Cardiovascular: Negative jmm for chest pain, palpitations, and edema, Respiratory: Negative for shortness of breath, cough, wheezing, and pleuritic chest pain. 16:55 Back: Positive for pain with movement. 16:55 MS/extremity: Positive for pain. 16:55 All other systems are negative. Exam: 16:55 Constitutional: This is a well developed, well nourished patient who is awake, alert, jmm and in no acute distress. Head/Face: atraumatic. Eyes: EOMI, no conjunctival erythema appreciated ENT: Moist Mucus Membranes Neck: Trachea midline, Supple Chest/axilla: Normal chest wall appearance and motion. Cardiovascular: Regular rate and rhythm. No edema appreciated Respiratory: Normal respirations, no respiratory distress appreciated Abdomen/GI: Non distended, soft Back: Normal ROM Skin: General appearance color normal 16:55 MS/ Extremity: Moves all extremities, no obvious deformities appreciated, no edema noted to the lower extremities Neuro: Awake and alert, normal gait Psych: Behavior is normal, Mood is normal, Patient is cooperative and pleasant 16:55 Back: Straight leg raises: right lower extremity does not illicit pain, no midline tenderness, no cva tenderness, pain on palpation of the right lower lumbar region. 16:55 Musculoskeletal/extremity: ROM: intact in all extremities. Vital Signs: 16:42 BP 128 / 69; Pulse 74; Resp 16 S; Temp 98.6(O); Pulse Ox 99% on R/A; Weight 67.13 kg aa5 (R); Height 4 ft. 11 in. (149.86 cm) (R); Pain 8/10; 16:55 BP 128 / 69; Pulse 73; Resp 18; Pulse Ox 100% on R/A; Pain 8/10; ks7 16:42 Body Mass Index 29.89 (67.13 kg, 149.86 cm) aa5 MDM: 16:55 Patient medically screened. [facility] 17:27 Data reviewed: vital signs, nurses notes. Counseling: I had a detailed discussion with murphy the patient and/or guardian regarding: the historical points, exam findings, and any diagnostic results supporting the discharge/admit diagnosis, the need for outpatient follow up, to return to the emergency department if symptoms worsen or persist or if there are any questions or concerns that arise at home. ED course: PE findings consistent with MS pain. I do not suspect pyelonephritis, cord compression, infectiious process. Patient is advised to follow up with OBGYN and otherwise given strict return precautions. Patient understood and agrees with the plan of care. . Administered Medications: No medications were administered Disposition: 18:21 Co-signature as Attending Physician, Karan Reina MD. rn Disposition: 01/07/20 17:29 Discharged to Home. Impression: Low back pain. - Condition is Stable. - Discharge Instructions: Back Pain, Adult. - Prescriptions for Cyclobenzaprine 5 mg Oral Tablet - take 1 tablet by ORAL route 3 times per day As needed; 15 tablet. - Medication Reconciliation Form, Thank You Letter, Antibiotic Education, Prescription Opioid Use form. - Follow up: Private Physician; When: 2 - 3 days; Reason: Recheck today's complaints, Continuance of care, Re-evaluation by your physician. - Notes: To help with nausea in you may take Unisom (Doxylamine) and Vitamin B6 at bedtime. Signatures: Mark Barahona PA PA jmm Nieto, Roman, MD MD rn Calderon, Audri RN RN aa5 Julieta Campos RN RN ks7 Corrections: (The following items were deleted from the chart) 18:11 17:29 01/07/2020 17:29 Discharged to Home. Impression: Low back pain. Condition is ks7 Stable. Forms are Medication Reconciliation Form, Thank You Letter, Antibiotic Education, Prescription Opioid Use. Follow up: Private Physician; When: 2 - 3 days; Reason: Recheck today's complaints, Continuance of care, Re-evaluation by your physician. tory
--- NOTE | 2020-01-07 17:29 | ER ---
Nurse's Notes [facility] Name: Radha Kuhn Age: 19 yrs Sex: Female : 2000 Arrival Date: 01/07/2020 Time: 16:26 Bed 17 Private MD: Diagnosis: Low back pain Presentation: 01/06 16:41 Chief complaint: Patient states: low back pain radiating down right leg on and off x 2 aa5 weeks ago. Denies abd pain, denies vaginal bleeding, denies burning with urination. Pt reports being 21 weeks . 16:41 Coronavirus screen: Client denies travel out of the [place] in the last 14 days. At this aa5 time, the client does not indicate any symptoms associated with coronavirus-19. Ebola Screen: Patient negative for fever greater than or equal to 101.5 degrees Fahrenheit, and additional compatible Ebola Virus Disease symptoms. Initial Sepsis Screen: Does the patient meet any 2 criteria? No. Patient's initial sepsis screen is negative. Does the patient have a suspected source of infection? No. Patient's initial sepsis screen is negative. Risk Assessment: Do you want to hurt yourself or someone else? Patient reports no desire to harm self or others. Onset of symptoms was November 2019. 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 - Social history:: Smoking status: Patient denies any tobacco usage or history of. Screenin:55 Abuse screen: Denies threats or abuse. Denies injuries from another. Nutritional ks7 screening: No deficits noted. Tuberculosis screening: No symptoms or risk factors identified. Fall Risk None identified. Assessment: 16:55 General: Appears in no apparent distress. uncomfortable, Behavior is calm, cooperative. ks7 Pain: Complains of pain in R lower back, radiates down her R thigh Pain radiates to right leg Pain currently is 8 out of 10 on a pain scale. Quality of pain is described as aching, sharp, Pain began 2-3 days ago. Is intermittent, Alleviated by rest, repositioning, Aggravated by repositioning. Musculoskeletal: Reports pain in buttocks and right leg. Vital Signs: 16:42 BP 128 / 69; Pulse 74; Resp 16 S; Temp 98.6(O); Pulse Ox 99% on R/A; Weight 67.13 kg aa5 (R); Height 4 ft. 11 in. (149.86 cm) (R); Pain 8/10; 16:55 BP 128 / 69; Pulse 73; Resp 18; Pulse Ox 100% on R/A; Pain 8/10; ks7 16:42 Body Mass Index 29.89 (67.13 kg, 149.86 cm) aa5 ED Course: 16:26 Patient arrived in ED. as 16:26 Mark Barahona PA is PHCP. [facility] 16:26 Karan Reina MD is Attending Physician. [facility] 16:41 Arm band placed on Patient placed in an exam room, on a stretcher. aa5 16:52 Triage completed. aa5 16:55 Julieta Campos RN is Primary Nurse. ks7 16:55 Resting quietly. ks7 16:55 Patient has correct armband on for positive identification. Bed in low position. Call ks7 light in reach. Side rails up X2. 16:55 No provider procedures requiring assistance completed. Patient did not have IV access ks7 during this emergency room visit. 17:12 Primary Nurse role handed off by Julieta Campos RN ca1 17:12 Maribell Batista RN is Primary Nurse. ca1 18:10 Julieta Campos RN is Primary Nurse. ks7 Administered Medications: No medications were administered Outcome: 17:29 Discharge ordered by . [facility] 18:10 Discharged to home ambulatory. ks7 18:10 Condition: good 18:10 Discharge instructions given to patient, Instructed on discharge instructions, medication usage, Demonstrated understanding of instructions, medications, Prescriptions given X 1. 18:11 Patient left the ED. ks7 Signatures: Mark Barahona PA PA jmm Martinez, Amelia as Calderon, Audri, RN RN [facility] Maribell Batista RN RN ca1 Julieta Campos RN RN ks7
[2020-01-07 18:31] VITALS: BP 128/69; TEMP 98.6
[2020-01-07 18:33] VITALS: O2SAT 100
== END 2020-01-07 18:11 | disposition home or self-care (01) ==
LOC: ER 16:23
DX: O26.892 Other specified pregnancy related conditions, second trimester (principal); Z3A.21 21 weeks gestation of pregnancy
CPT/HCPCS: 99282

== ENCOUNTER 2020-02-15 11:19 | Emergency (ER) | payer OTHER ==
--- NOTE | 2020-02-15 12:22 | ER ---
Nurse's Notes [facility] Name: Radha Kuhn Age: 19 yrs Sex: Female : 2000 Arrival Date: 02/15/2020 Time: 11:23 Bed 5 Private MD: Diagnosis: Acute sinusitis Presentation: 02/14 11:28 Chief complaint: Patient states: productive cough and sore throat that started em yesterday, mother would like pt to get evaluated for covid, denies N/V/D. Coronavirus screen: cough unrelated to allergies, sore throat. Ebola Screen: Patient negative for fever greater than or equal to 101.5 degrees Fahrenheit, and additional compatible Ebola Virus Disease symptoms Patient denies exposure to infectious person. Patient denies travel to an Ebola-affected area in the 21 days before illness onset. No symptoms or risks identified at this time. Initial Sepsis Screen: Does the patient meet any 2 criteria? No. Patient's initial sepsis screen is negative. Does the patient have a suspected source of infection? No. Patient's initial sepsis screen is negative. Risk Assessment: Do you want to hurt yourself or someone else? Patient reports no desire to harm self or others. Onset of symptoms was February 14, 2020. 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 07/2019 em Historical: - Allergies: 11:30 No Known Allergies; em - PMHx: 11:30 Depression; Anxiety; Headaches; em - PSHx: 11:30 Tonsillectomy; em - Immunization history:: Adult Immunizations up to date. - Social history:: Smoking status: Patient denies any tobacco usage or history of. Screenin:34 Abuse screen: Denies threats or abuse. Denies injuries from another. Nutritional sv screening: No deficits noted. Tuberculosis screening: No symptoms or risk factors identified. Fall Risk None identified. Assessment: 11:50 General: Appears in no apparent distress. comfortable, well developed, Behavior is sv calm, cooperative, appropriate for age. Pain: Denies pain. Neuro: Level of Consciousness is awake, alert, obeys commands, Oriented to person, place, time, situation, Appropriate for age Moves all extremities. Full function Gait is steady. Respiratory: Respiratory effort is even, unlabored, Respiratory pattern is regular, symmetrical. EENT: Reports pain when swallowing. 12:39 Respiratory: Airway. ca1 Vital Signs: 11:28 BP 129 / 80; Pulse 87; Resp 18; Temp 98.7; Pulse Ox 99% on R/A; Weight 68.95 kg (R); em Height 4 ft. 11 in. (149.86 cm); Pain 7/10; 11:28 Body Mass Index 30.70 (68.95 kg, 149.86 cm) em ED Course: 11:23 Patient arrived in ED. mr 11:30 Triage completed. em 11:30 Arm band placed on. em 11:34 Isabella Ricardo, RN is Primary Nurse. sv 11:34 Patient has correct armband on for positive identification. Bed in low position. Call sv light in reach. Door closed. Head of bed elevated. 11:44 Sita Holland FNP-C is [facility]. kb 11:44 Gregorio Tolliver MD is Attending Physician. kb 12:39 No provider procedures requiring assistance completed. Patient did not have IV access ca1 during this emergency room visit. Administered Medications: No medications were administered Outcome: 12:21 Discharge ordered by MD. kb 12:39 Discharged to home ambulatory. ca1 12:39 Condition: stable 12:39 Discharge instructions given to patient, Instructed on discharge instructions, follow up and referral plans. Demonstrated understanding of instructions, follow-up care. 12:40 Patient left the ED. ca1 Signatures: Sita Holland FNP-C FNP-Ckb Isabella Ricardo RN RN Alisa Rene mr Sameer Norwood RN RN Maribell Batista RN RN ca1
--- NOTE | 2020-02-15 12:22 | EDPHYS ---
Physician Documentation [facility] Name: Radha Kuhn Age: 19 yrs Sex: Female : 2000 Arrival Date: 02/15/2020 Time: 11:23 Bed 5 Private MD: ED Physician Gregorio Tolliver HPI: 02/14 15:58 This 19 yrs old Female presents to ER via Ambulatory with complaints of Sore kb Throat, Cough. 15:58 The patient presents with sore throat. The patient describes throat pain as constant. kb Onset: The symptoms/episode began/occurred this morning. Severity of symptoms: At their worst the symptoms were moderate, in the emergency department the symptoms are unchanged. Modifying factors: The symptoms are alleviated by nothing, the symptoms are aggravated by swallowing, Patient's oral intake status: good Denies contact with similarly ill indivduals. Associated signs and symptoms: Pertinent positives: Sore throat. The patient has not experienced similar symptoms in the past. The patient has not recently seen a physician. Pt reports sinus congestion and sore throat that started this morning. States mother wanted her to come get tested for COVID. Pt states "I think it's just a sinus infection, not COVID. I don't really want the test". 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 - Social history:: Smoking status: Patient denies any tobacco usage or history of. ROS: 15:57 Constitutional: Negative for fever, chills, and weight loss, Cardiovascular: Negative kb for chest pain, palpitations, and edema, Respiratory: Negative for shortness of breath, cough, wheezing, and pleuritic chest pain, Abdomen/GI: Negative for abdominal pain, nausea, vomiting, diarrhea, and constipation, Back: Negative for injury and pain, MS/Extremity: Negative for injury and deformity, Skin: Negative for injury, rash, and discoloration, Neuro: Negative for headache, weakness, numbness, tingling, and seizure. 15:57 ENT: Positive for rhinorrhea, sinus congestion, sore throat. Exam: 15:57 Constitutional: This is a well developed, well nourished patient who is awake, alert, kb and in no acute distress. Head/Face: Normocephalic, atraumatic. ENT: Nares patent. No nasal discharge, no septal abnormalities noted. Tympanic membranes are normal and external auditory canals are clear. Oropharynx with no redness, swelling, or masses, exudates, or evidence of obstruction, uvula midline. Mucous membranes moist. Neck: Trachea midline, no thyromegaly or masses palpated, and no cervical lymphadenopathy. Supple, full range of motion without nuchal rigidity, or vertebral point tenderness. No Meningismus. Chest/axilla: Normal chest wall appearance and motion. Nontender with no deformity. No lesions are appreciated. Cardiovascular: Regular rate and rhythm with a normal S1 and S2. No gallops, murmurs, or rubs. Normal PMI, no JVD. No pulse deficits. Respiratory: Lungs have equal breath sounds bilaterally, clear to auscultation and percussion. No rales, rhonchi or wheezes noted. No increased work of breathing, no retractions or nasal flaring. Abdomen/GI: Soft, non-tender, with normal bowel sounds. No distension or tympany. No guarding or rebound. No evidence of tenderness throughout. Skin: Warm, dry with normal turgor. Normal color with no rashes, no lesions, and no evidence of cellulitis. MS/ Extremity: Pulses equal, no cyanosis. Neurovascular intact. Full, normal range of motion. Neuro: Awake and alert, GCS 15, oriented to person, place, time, and situation. Cranial nerves II-XII grossly intact. Motor strength 5/5 in all extremities. Sensory grossly intact. Cerebellar exam normal. Normal gait. Vital Signs: 11:28 BP 129 / 80; Pulse 87; Resp 18; Temp 98.7; Pulse Ox 99% on R/A; Weight 68.95 kg (R); em Height 4 ft. 11 in. (149.86 cm); Pain 7/10; 11:28 Body Mass Index 30.70 (68.95 kg, 149.86 cm) em MDM: 11:44 Patient medically screened. kb 15:57 Data reviewed: vital signs, nurses notes. Data interpreted: Pulse oximetry: on room air kb is 99 %. Interpretation: normal. Counseling: I had a detailed discussion with the patient and/or guardian regarding: the historical points, exam findings, and any diagnostic results supporting the discharge/admit diagnosis, the need for outpatient follow up, a family practitioner, to return to the emergency department if symptoms worsen or persist or if there are any questions or concerns that arise at home. Administered Medications: No medications were administered Disposition: 02/15/20 12:21 Discharged to Home. Impression: Acute sinusitis. - Condition is Stable. - Discharge Instructions: Sinusitis, Adult, [id number]. - Medication Reconciliation Form, Thank You Letter, Antibiotic Education, Prescription Opioid Use form. - Follow up: Emergency Department; When: As needed; Reason: Worsening of condition. Follow up: Private Physician; When: 2 - 3 days; Reason: Recheck today's complaints, Continuance of care, Re-evaluation by your physician. - Notes: Use Flonase and zyrtec as directed Addendum: 02/16/2020 13:58 Co-signature as Attending Physician, Gregorio Tolliver MD I agree with the assessment and k dr plan of care. Signatures: Sita Holland, CHEMIST ORGANIC-C CHEMIST ORGANIC-Ckb Gregorio Tolliver MD MD [facility] Sameer Norwood, MADISON RN Maribell Batista RN RN [facility] Corrections: (The following items were deleted from the chart) 02/14 12:40 12:21 02/15/2020 12:21 Discharged to Home. Impression: Acute sinusitis. Condition is ca1 Stable. Forms are Medication Reconciliation Form, Thank You Letter, Antibiotic Education, Prescription Opioid Use. Follow up: Emergency Department; When: As needed; Reason: Worsening of condition. Follow up: Private Physician; When: 2 - 3 days; Reason: Recheck today's complaints, Continuance of care, Re-evaluation by your physician. kb
[2020-02-15 13:09] VITALS: BP 129/80; TEMP 98.7; O2SAT 99
== END 2020-02-15 12:40 | disposition home or self-care (01) ==
LOC: ER 11:19
DX: J01.90 Acute sinusitis, unspecified (principal)
CPT/HCPCS: 99282

== ENCOUNTER 2020-05-14 04:15 | Inpatient (IN) | payer OTHER ==
[2020-05-14] MEDS ORDERED: Ringers Lactate 1,000 ML IV PRN (04:21)
[2020-05-14] MEDS ORDERED: METHYLERGONOVINE 0.2MG/ML AMP IM PRN (04:21)
[2020-05-14] MEDS ORDERED: BUTORPHANOL 1 MG/ML INJ IV PRN (04:21)
[2020-05-14] MEDS ORDERED: PROMETHAZINE INJ 25 MG/ML AMP IM PRN (04:21)
[2020-05-14] MEDS ORDERED: CARBOPROST TROME 250 MCG/ML IM PRN (04:21)
[2020-05-14 04:49] VITALS: BMI 33.7
[2020-05-14] MEDS ORDERED: OXYTOCIN/LR 20 UNIT/1,000 ML BAG IV SCH ×2 (05:00→11:00)
[2020-05-14] MEDS ORDERED: Ringers Lactate 1,000 ML IV SCH (05:00)
[2020-05-14 05:07] LABS: Absolute Lymphocytes (CBC) 2.3 K/uL (0.7-4.9); Basophils % 0.3 % (0-1.3); Hematocrit 33.5 % (36.0-45.0); Lymphocytes % 17.2 % (15.3-44.8); MPV 11.5 fL (7.6-11.3); RBC Red Blood Cell Count 3.94 M/uL (3.86-4.86)
[2020-05-14 06:56] LABS: Urine Appearance CLEAR; Urine Bilirubin NEGATIVE (NEG); Urine Blood 2+ (NEG); Urine Color YELLOW; Urine Glucose NEGATIVE (NEG); Urine Protein NEGATIVE (NEG); Urine Specific Gravity 1.015 (1.005-1.030); Urine Urobilinogen 0.2 mg/dL (0.2-1.0); Urine pH 6.5 (5.0-7.0)
[2020-05-14 07:17] LABS: Urine Bacteria <20 /HPF (<20); Urine RBC NONE SEEN /HPF (NONE SEEN)
--- NOTE | 2020-05-14 07:31 | PREOPHP ---
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 She was diabetic, but good control, for induction t ricardo. Family History: Really not contributory. Past Medical History: She has had tonsil surgery, chlamydia and Trichomonas 2018 and 2019, treated. Allergies: NO ALLERGIES. Social History: Smokes marijuana occasionally, but no cigarette. Physical Examination: HEENT: Clear. Pupils equal, round, reactive to light and accommodation. Conjunctivae well perfused . No oral, lingual, or buccal lesions. Chest and Lungs: Clear. Heart: Without murmurs, thrills, heaves, or rubs. Breasts: Without masses on previous visits. Abdomen: Term size. She is 3.5 cm, 60% effaced, vertex, -1 station. Rupture of membranes, clear fl uid. Disha regularly. Anticipate more rapid progress once she gets to 5 cm. Full labor talk given. Patient still not deci ded whether she wishes to go natural or with epidural. She will make that decision as the labor prog resses. Anticipate delivery sometime later today. ITZ/LILLIAN Voice ID: [id number]
[2020-05-14] MEDS ORDERED: 0.2% ROPIVACAINE (200 MG/100 ML) BAG EP ONE (07:42)
[2020-05-14] MEDS ORDERED: ROPIVACAINE HCL 0.2% 20ML AMP IV ONE (07:42)
[2020-05-14] MEDS ORDERED: FENTANYL CITR 100 MCG/2 ML IV ONE (07:43)
[2020-05-14] MEDS ORDERED: LIDOCAINE 1% 20 ML MDV ONE (09:40)
[2020-05-14] MEDS ORDERED: Oxycodone HCl/Acetaminophen 1 TAB TAB PO PRN (10:05)
[2020-05-14] MEDS ORDERED: DOCUSATE NA/SENNA CONC 1 TAB PO PRN (10:05)
[2020-05-14] MEDS ORDERED: ACETAMINOPHEN 500 MG TAB PO PRN (10:05)
[2020-05-14] MEDS ORDERED: BISACODYL 10 MG RECTAL SUPP PR PRN (10:05)
[2020-05-14] MEDS ORDERED: DIPHENHYDRAMINE 25 MG TAB/CAP PO PRN (10:05)
--- NOTE | 2020-05-14 10:28 | OP ---
Surgeon: Elias Crooks MD Radha Kuhn is a 19-year-old, primigravida, 39 weeks 4 days, [facility] [place] with Dr. Barahona, high-credit risk officer. Diabetes under good control. A 3.5 cm on admission. Rupture of membranes. The patient requested Stadol IV, Phenergan IM, and then went rapidly to comple te, precipitous, but controlled vaginal delivery of 6 pounds 9 ounces female, Apgars 9 and 9. First- degree laceration, just inside the introitus, 2-0 chromic multiple sutures for complete hemostasis. Not very large, but somewhat vascular. Schultze delivery of the placenta, which was inspected and no ariel to be intact and normal. 350 cc or less blood loss. The patient tolerated all procedures well. Final Diagnoses: Term intrauterine at 39 weeks 4 days; maternal diabetes, well controlled; labor induction; vaginal delivery. ITZ/LILLIAN Voice ID: [id number] Report ID: [id number]
[2020-05-14] MEDS: IBUPROFEN 200 MG TAB PO PRN ×2 (15:10→21:49)
[2020-05-14] MEDS: Oxycodone HCl/Acetaminophen 1 TAB TAB PO PRN (19:55)
[2020-05-15 00:29] LABS: RPR (Rapid Plasma Reagin) NON-REACT (NON-REACT)
[2020-05-15] MEDS: Oxycodone HCl/Acetaminophen 1 TAB TAB PO PRN (01:49)
[2020-05-15] MEDS: IBUPROFEN 200 MG TAB PO PRN (05:40)
[2020-05-15 07:32] VITALS: BP 120/61; TEMP 97.1
--- NOTE | 2020-05-15 07:41 | DS ---
Hospital Course: Radha Kuhn is a 19-year-old primigravida, at 39 weeks and 4 days. Delivered a 6 pounds 9-ounce female, Apgars 9 and 9. Small first-degree laceration just inside the introitus, s utured with 2-0 chromic interrupted sutures. Estimated blood loss 350 cc with Schultze delivery of t he placenta, which inspected and noted to be intact and normal. Rh positive. Immune to rubella. Ne gative strep. Negative COVID. afebrile. Ambulating and voiding. Lochia is normal. Req uests no analgesics on dismissal. The patient has been diabetic during the and has been in very good control. Tdap and flu shots offered. Final Diagnoses: Intrauterine gestation, 39 weeks 4 days, maternal diabetes, labor induction, vagina l delivery. Tdap and flu shots offered. ITZ/LILLIAN Voice ID: [id number] Report ID: [id number]
[2020-05-18 18:30] LABS: HBsAG Nonreactive (Nonreactive)
== END 2020-05-15 13:25 | disposition home or self-care (01) | DRG 807 ==
LOC: 2ND-WC 04:15
PROVIDERS: ADMIT Specialist; ATTEND Specialist
PROC: 10907ZC Drainage of Amniotic Fluid, Therapeutic from Products of Conception, Via Natural or Artificial Opening (ICD-10-PCS; principal; 2020-05-14)
PROC: 10E0XZZ Delivery of Products of Conception, External Approach (ICD-10-PCS; 2020-05-14)
PROC: 0HQ9XZZ Repair Perineum Skin, External Approach (ICD-10-PCS; 2020-05-14)
DX: O24.429 Gestational diabetes mellitus in childbirth, unspecified control (principal); Z37.0 Single live birth; O70.0 First degree perineal laceration during delivery; Z3A.39 39 weeks gestation of pregnancy; Z20.828 Contact with and (suspected) exposure to other viral communicable diseases
CPT/HCPCS: 36415; 81001; 82947; 85025; 86592; 86901; 87086; 87088; 87340; J0595; J2210; J2550; J2590; J2795; J7120; U0003

== ENCOUNTER 2022-10-02 21:56 | Emergency (ER) | payer OTHER ==
--- OUTSIDE RECORDS SUMMARY | 2022-10-02 21:59 | XMS REPORT | Continuity of Care Document ---
:2000 Author Organization [facility] t Address [address] [place] [address]. [address] [place] [address] Care Team Providers Name Role Phone Karrie Wharton Attending Clinician KARRIE GRUBER Attending Clinician Unavailable Payers Payer Name Policy Type Policy Number Effective Date Expiration Date S ource Problems Condition Condition Condition Status Onset Resolution Last Treating Co mments Source Name Details Category Date Date Treatment Clinician Date Encounter Encounter Disease Active 2020-0 Uni vers for for 27 [place]y of supervis[place] Medical normal normal Branch first first in first in first trimester trimester Nausea and Nausea and Disease Active 2020-0 U nivers vomiting vomiting 4-27 ity of during during 00:00: [place] 00 [facility] prior to prior to Branch 22 weeks 22 weeks gestation gestation Obesity Obesity Disease Active 2020-0 Univers (BMI (BMI 4-27 ity of 30-39.9) 30-39.9) 00:00: [address] Trichomona Trichomona Disease Active 2020-0 U nivers s s 4-27 ity of vaginalis [facility] Allergies, Adverse Reactions, Alerts Allergy Allergy Status Severity Reaction(s) Onset Inactive Treating Comm ents Source Name Type Date Date Clinician NO KNOWN Drug Active Univers ALLERGIE Class ity of S [facility] Social History Social Habit Start Date Stop Date Quantity Comments Source ASSERTION 2019-08-25 University of 00:00:00 [facility] Sex Assigned At Universit y of [facility] Exposure to Not sure [facility] SARS-CoV-2 [facility] (event) Branch Tobacco use and 2020-06-05 2020-06-05 Never used Universit y of exposure 00:00:00 00:00:00 [facility] Alcohol intake 2020-06-05 2020-06-05 Ex-drinker [facility] 00:00:00 00:00:00 (finding) [facility] Smoking Status Start Date Stop Date Source Never smoker [facility] Medications Ordered Filled Start Stop Current Ordering Indication Dosage Frequency Signature Comments Components Source Medication Medication Date Date Medication? Clinician (SIG) Name Name cephALEXin 500mg 500 mg, Un alfonso (KEFLEX) 06-06 Oral, ONCE ity of capsule 500 01:00: 12:59 NOW, 1 [place] as mg 00 :00 dose, [facility] 06/05/20 at [place] 1900, FLAKITA
Re ason for Anti-Infec tive: Documented Infection< br>Documen ariel Infection Site: Urine
D uration of Therapy: 7 days butalbital- No 1{tbl} 1 tablet, [facility] acetaminoph 06-06 Oral, ONCE i ty of en-caff 01:00: 12:59 NOW, 1 [place] (ESGIC) 00 :00 dose, [facility] 50-325-40 06/05/20 at [facility] h mg tablet 1 1900, FLAKITA tablet Yes 1{tbl} Take 1 Unive rs vit w/iron 4-27 tablet by ity of fumarate 13:43: mouth [place] and FA 40 daily. Medical tablet [place] proMETHazin Yes [id number] 25mg Take 1 Univers e 25 mg 4-27 tablet by ity of tablet 00:00: mouth [place] 00 every 4 Medical (four) [place] hours as needed for Nausea and Vomiting (N/V). Vital Signs Vital Name Observation Time Observation Value Comments Source Systolic blood 2020-06-05 21:47:00 107 mm[Hg] Univer sity of pressure [facility] Diastolic blood 2020-06-05 21:47:00 75 mm[Hg] Unive rsity of pressure [facility] Heart rate 2020-06-05 21:47:00 72 /min [facility] [place] [facility] Body temperature 2020-06-05 21:47:00 36.11 Prudence [facility] ersity of [place] [facility] Respiratory rate 2020-06-05 21:47:00 14 /min Univ ersity of [place] [facility] Body height 2020-06-05 21:47:00 149.9 cm [facility] [place] [facility] Body weight 2020-06-05 21:47:00 68.947 kg [facility] [place] [facility] BMI 2020-06-05 21:47:00 30.70 kg/m2 [facility] [place] [facility] Oxygen saturation in 2020-06-05 21:47:00 99 /min University of Arterial blood by [place] [facility] Pulse oximetry Branch Systolic blood 2020-06-05 21:47:00 107 mm[Hg] Univer sity of pressure [place] [facility] [place] Diastolic blood 2020-06-05 21:47:00 75 mm[Hg] Unive rsity of pressure [place] [facility] [place] Heart rate 2020-06-05 21:47:00 72 /min [facility] [place] [facility] Body temperature 2020-06-05 21:47:00 36.11 Prudence [facility] ersity of [place] [facility] Respiratory rate 2020-06-05 21:47:00 14 /min [facility] ersity of [place] [facility] Body height 2020-06-05 21:47:00 149.9 cm [facility] [place] [facility] Body weight 2020-06-05 21:47:00 68.947 kg [facility] [place] [facility] BMI 2020-06-05 21:47:00 30.70 kg/m2 [facility] [place] [facility] Oxygen saturation in 2020-06-05 21:47:00 99 /min University of Arterial blood by [place] [facility] Pulse oximetry Branch Procedures Procedure Date / Time Performed Performing Clinician Sourc e URINALYSIS 2020-06-05 22:18:00 Karrie Gruber [facility] NOTICE OF PRIVACY 2020-06-05 21:38:51 Doctor Unassigned, No Univ [facility] PRACTICES Name Medical Branch Encounters Start End Encounter Admission Attending Care Care Encounter Source Date/Time Date/Time Type Type Clinicians Facility Department ID 2020-06-05 2020-06-05 Emergency YANI Gruber [id number] 15:48:00 18:17:00 Karrie Iniguez [id number] [place] [id number] [place] [id number] 2020-06-05 2020-06-05 [facility] [id number] Univers 15:48:00 18:17:00 Karrie Iniguez [id number] i ty of [place] [id number] [facility] [id number] [facility] 084 Branch 2020-06-05 2020-06-05 Emergency X [facility] ERT [id number] Univers 15:48:00 15:48:00 KARRIE mariy [facility] Results Test Description Test Time Test Comments Results Result Comments Source URINALYSIS 2020-06-05 23:26:00 Test Item Value Reference Range Interpretation Comme nts APPEARANCE (test code = Clear Clear 7317511518) COLOR (test code = 4499377669) Yellow Yellow PH (test code = 7093516853) 4.8-8.0 SP GRAVITY (test code = 1.003-1.030 9982164868) GLU U QUAL (test code = Normal Normal 8197971230) BLOOD (test code = 4171469725) 2+ Negative A KETONES (test code = 2096579301) Negative Negative PROTEIN (test code = 2887-8) Negative Negative UROBILIN (test code = Normal Normal 9300667111) BILIRUBIN (test code = Negative Negative 8680324697) NITRITE (test code = 0537239624) Negative Negative LEUK LORA (test code = 500/uL Negative A 0835515808) RBC/HPF (test code = 6322116641) See_Comment [Automated message] The system which ge nerated this result transmit ariel reference range: 0 - 3 HP F. The reference range was not used to interpret th is result as normal/abnormal . WBC/HPF (test code = 6601655043) See_Comment H [Automated message] The system which ge nerated this result transmit ariel reference range: 0 - 5 HP F. The reference range was not used to interpret th is result as normal/abnormal . BACTERIA (test code = Few Negative A 1847847495) MUCOUS (test code = 9807146901) Slight Negative LPF A SQ EPITH (test code = HPF 7347562795) HYAL CAST (test code = See_Comment [Aut omated message] The 8828265831) system which ge nerated this result transmit ariel reference range: <=2 LPF. The reference range was not u sed to interpret this result as normal/abnormal . Lab Interpretation (test code = Abnormal 64530-4) [facility]
--- NOTE | 2022-10-02 22:49 | ER ---
Nurse's Notes [facility] Name: Radha Kuhn Age: 21 yrs Sex: Female : 2000 Arrival Date: 10/02/2022 Time: 21:56 Bed Waiting Private MD: Diagnosis: ED Course: 10/02 22:00 Patient arrived in ED. ja2 22:02 Shai Cornejo PA is PHCP. cp 22:02 Gregorio Cordova MD is Attending Physician. cp 22:48 Patient's name was called from [employer]. No response. vg1 Administered Medications: No medications were administered Outcome: 22:49 Patient left the ED. vg1 Signatures: Shai Cornejo PA PA cp Garcia, Victoria, RN RN vg1 Mell Dee2
== END 2022-10-02 22:49 | disposition left against medical advice (07) ==
LOC: ER 21:56
DX: Z02.9 Encounter for administrative examinations, unspecified (principal)

== ENCOUNTER 2023-01-02 02:39 | Observation (INO) | payer OTHER ==
--- OUTSIDE RECORDS SUMMARY | 2023-01-02 02:42 | XMS REPORT | Continuity of Care Document ---
:2000 Author Organization [facility] t Address [address] [place] [address] [place] [address] Care Team Providers Name Role Phone PCP, PATIENT DOES NOT HAVE A Primary Care Physician Unavailcaroline Gaxiola BORING INSPECTOR, Dk Attending Clinician DK GAXIOLA Attending Clinician Unavailable Doctor Unassigned, [place] Attending Clinician Unavailable Moo Wharton Attending Clinician MOO MAYERS Attending Clinician Unavailable Payers Payer Name Policy Type Policy Number Effective Date Expiration Date Mor[place] POLO [id number] 2022 00:00:00 Problems Condition Condition Condition Status Onset Resolution Last Treating Co mments Source Name Details Category Date Date Treatment Clinician Date Encounter Encounter Disease Active 2020-0 Uni vers for for 4-27 ity of supervisio supervisio 00:00: [place] of n of 00 Medical normal normal Branch first first in first in first trimester trimester Nausea and Nausea and Disease Active 2020-0 U nivers vomiting vomiting 4-27 ity of during during 00:00: [place] 00 [facility] prior to prior to Branch 22 weeks 22 weeks gestation gestation Obesity Obesity Disease Active 2020-0 Univers (BMI (BMI 4-27 ity of 30-39.9) 30-39.9) 00:00: [place] [address] Medical Branch Trichomona Trichomona Disease Active 2020-0 U nivers s s 4-27 ity of vaginalis vaginalis 00[place] infection infection 00 [facility] Branch Allergies, Adverse Reactions, Alerts Allergy Allergy Status Severity Reaction(s) Onset Inactive Treating Comm ents Source Name Type Date Date Clinician NO KNOWN Drug Active Univers ALLERGIE Class ity of S [facility] Social History Social Habit Start Date Stop Date Quantity Comments Source ASSERTION 2019-08-25 [facility] 00:00:00 [facility] Alcohol intake 2022-10-23 2022-10-23 Ex-drinker [facility] 00:00:00 00:00:00 (finding) [facility] Exposure to 2022-10-09 2022-10-19 Not sure [facility] SARS-CoV-2 00:00:00 13:44:00 [facility] [place] [facility] (event) [place] Tobacco use and 2022-10-19 2022-10-19 Smokeless tobacco Un iversity of exposure 00:00:00 00:00:00 non-user [facility] Sex Assigned At [birth year] Universit y of 00:00:00 00:00:00 [facility] Smoking Status Start Date Stop Date Source Never smoked tobacco [facility] Medications Ordered Filled Start Stop Current Ordering Indication Dosage Frequency Signature Comments Components Source Medication Medication Date Date Medication? Clinician (SIG) Name Name metroNIDAZO 2022- Yes [id number] 500mg Take 1 Univers LE 500 mg 10-20 tablet by ity of tablet 00:00: 04:59 mouth [place] 00 :00 every 12 Medical (twelve) Branch hours for 7 days. medroxyPROG 2022- No [id number] 150mg Univers ESTERone 5-22 05-22 ity of (DEPO-PROVE 22:30: 21:41 [place] RA) syringe 00 :00 Medical 150 mg Branch medroxyPROG 2022- No [id number] 150mg 150 mg, Univers ESTERone 5-22 05-22 Intramuscu ity of (DEPO-PROVE 22:30: 21:41 lar, ONCE, [place] RA) syringe 00 :00 1 dose, On Me dical 150 mg Mon [place] 10/19/22 at 1730, Routine medroxyPROG 2022- No [id number] 150mg Univers ESTERone 5-22 05-22 ity of (DEPO-PROVE 22:30: 21:41 [place] RA) syringe 00 :00 Medical 150 mg Branch medroxyPROG 2022- No [id number] 150mg 150 mg, Univers ESTERone 5-22 05-22 Intramuscu ity of (DEPO-PROVE 22:30: 21:41 lar, ONCE, [place] RA) syringe 00 :00 1 dose, On Me dical 150 mg Mon Branch 10/19/22 at 1730, Routine Yes 1{tbl} Take 1 Unive rs vit w/iron 5-22 tablet by ity of fumarate 14:08: mouth in [place] and FA 58 the Medical tablet morning. Branch Yes 1{tbl} Take 1 Unive rs vit w/iron 5-22 tablet by ity of fumarate 14:08: mouth in [place] and FA 58 the Medical tablet morning. Branch Yes 1{tbl} Take 1 Unive rs vit w/iron 5-22 tablet by ity of fumarate 14:08: mouth in [place] and FA 58 the Medical tablet morning. Branch metroNIDAZO 2022- Yes [id number] 500mg Take 1 Univers LE 500 mg 5-22 05-30 tablet by ity of tablet 00:00: 04:59 mouth [place] 00 :00 every 12 Medical (twelve) Branch hours for 7 days. metroNIDAZO 2022- Yes [id number] 500mg Take 1 Univers LE 500 mg 5-22 05-30 tablet by ity of tablet 00:00: 04:59 mouth [place] 00 :00 every 12 Medical (twelve) Branch hours for 7 days. metroNIDAZO 2022- Yes [id number] 500mg Take 1 Univers LE 500 mg 5-22 05-30 tablet by ity of tablet 00:00: 04:59 mouth [place] 00 :00 every 12 Medical (twelve) Branch hours for 7 days. codeine-gua Yes GIVE 10 Uni vers ifenesin 5-09 ML(S) BY ity of 10-100 mg/5 00:00: MOUTH [place] mL oral 00 EVERY 4 Medical solution HOURS Branch NEEDED. codeine-gua Yes GIVE 10 Uni vers ifenesin 5-09 ML(S) BY ity of 10-100 mg/5 00:00: MOUTH [place] mL oral 00 EVERY 4 Medical solution HOURS Branch NEEDED. VENTOLIN Yes INHALE TWO Uni vers HFA 90 5-08 (2) PUFFS ity of mcg/actuati 00:00: [place]TH [place] inhaler 00 INTO THE Medic al LUNGS Branch EVERY 6 (SIX) HOURS NEEDED FOR WHEEZING. VENTOLIN Yes INHALE TWO Uni vers HFA 90 5-08 (2) PUFFS ity of mcg/actuati 00:00: [place] inhaler 00 INTO THE Medic al LUNGS Branch EVERY 6 (SIX) HOURS NEEDED FOR WHEEZING. cephALEXin 2020- No 500mg 500 mg, Un alfonso (KEFLEX) 06-06 Oral, ONCE ity of capsule 500 01:00: 12:59 NOW, 1 [place] as mg 00 :00 dose, [facility] Medical 06/05/20 at Branch 1900, FLAKITA
Re ason for Anti-Infec tive: Documented Infection< br>Documen ariel Infection Site: Urine
D uration of Therapy: 7 days butalbital- 2020- No 1{tbl} 1 tablet, Univers acetaminoph 06-06 Oral, ONCE i ty of en-caff 01:00: 12:59 NOW, 1 [place] (ESGIC) 00 :00 dose, [facility] Medical 50-325-40 06/05/20 at [facility] h mg tablet 1 190, FLAKITA tablet Yes 1{tbl} Take 1 Unive rs vit w/iron 4-27 tablet by ity of fumarate 13:43: mouth [place] and FA 40 daily. Medical tablet Branch 0 Yes 1{tbl} Take 1 Unive rs vit w/iron 4-27 tablet by ity of fumarate 08:43: mouth [place] and FA 40 daily. Medical tablet Branch proMETHazin 0 Yes [id number] 25mg Take 1 Univers e 25 mg 4-27 tablet by ity of tablet 00:00: mouth [place] 00 every 4 Medical (four) Branch hours as needed for Nausea and Vomiting (N/V). proMETHazin 0 Yes [id number] 25mg Take 1 Univers e 25 mg 4-27 tablet by ity of tablet 00:00: mouth [place] 00 every 4 Medical (four) Branch hours as needed for Nausea and Vomiting (N/V). proMETHazin 0 Yes [id number] 25mg Take 1 Univers e 25 mg 4-27 tablet by ity of tablet 00:00: mouth [place] 00 every 4 Medical (four) Branch hours as needed for Nausea and Vomiting (N/V). proMETHazin 2020-0 Yes [id number] 25mg Take 1 Univers e 25 mg 4-27 tablet by ity of tablet 00:00: mouth [place] 00 every 4 Medical (four) Branch hours as needed for Nausea and Vomiting (N/V). proMETHazin 2020-0 Yes [id number] 25mg Take 1 Univers e 25 mg 4-27 tablet by ity of tablet 00:00: mouth [place] 00 every 4 Medical (four) Branch hours as needed for Nausea and Vomiting (N/V). Vital Signs Vital Name Observation Time Observation Value Comments Source Systolic blood 2022-10-19 19:08:00 107 mm[Hg] Univer sity [facility] Diastolic blood 2022-10-19 19:08:00 71 [facility]Hg[facility] 2022-10-19 19:06:00 76 /min [facility] Respiratory rate 2022-10-19 19:06:00 18 /min [facility] Body height 2022-10-19 19:06:00 149.9 cm [facility] Body weight 2022-10-19 19:06:00 66.225 kg [facility] BMI 2022-10-19 19:06:00 29.49 kg/m2 [facility] Systolic blood 2020-06-05 21:47:00 107 mm[Hg] Univer sity [facility] Diastolic blood 2020-06-05 21:47:00 75 mm[Hg] [facility] 2020-06-05 21:47:00 72 /min [facility] Body temperature 2020-06-05 21:47:00 36.11 Prudence [facility] Respiratory rate 2020-06-05 21:47:00 14 /min [facility] Body height 2020-06-05 21:47:00 149.9 cm [facility] Body weight 2020-06-05 21:47:00 68.947 kg [facility]i ty [facility] [place] [facility] BMI 2020-06-05 21:47:00 30.70 kg/m2 Universi ty of [place] [facility] [place] Oxygen saturation in 2020-06-05 21:47:00 99 /min University of Arterial blood by [facility] Pulse oximetry Branch Systolic blood 2020-06-05 21:47:00 107 mm[Hg] Univer sity of pressure [place] [facility] [place] Diastolic blood 2020-06-05 21:47:00 75 mm[Hg] Unive rsity of pressure [place] [facility] [place] Heart rate 2020-06-05 21:47:00 72 /min Universi ty of [place] [facility] [place] Body temperature 2020-06-05 21:47:00 36.11 Prudence [facility] Respiratory rate 2020-06-05 21:47:00 14 /min [facility] Body height 2020-06-05 21:47:00 149.9 cm Universi ty of [place] [facility] [place] Body weight 2020-06-05 21:47:00 68.947 kg [facility] [place] [facility] BMI 2020-06-05 21:47:00 30.70 kg/m2 [facility] [place] [facility] Oxygen saturation in 2020-06-05 21:47:00 99 /min University of Arterial blood by [facility] Pulse oximetry Branch Procedures Procedure Date / Time Performing Clinician Source Performed GC & CHLAMYDIA 2022-10-19 19:26:00 Dk Gaxiola [facility] AMPLIFIED [facility] Medical [place] TRICHOMONAS AMPLIFIED 2022-10-19 19:26:00 Dk [facility] 2022-10-19 18:43:14 Doctor Unassigned, No [facility] POCT TEST 2022-10-19 00:00:00 Dk Gaxiola [facility] URINALYSIS 2020-06-05 22:18:00 Moo Mayers [facility] NOTICE OF PRIVACY 2020-06-05 21:38:51 Doctor Unassigned, No Univ [facility] Encounters Start End Encounter Admission Attending Care Care Encounter Source Date/Time Date/Time Type Type Clinicians Facility Department ID 2023-01-11 2023-01-11 Outpatient R [facility] [id number] Univers 15:00:00 15:00:00 ity of [facility] 2022-10-20 2022-10-20 Case Jasmin [facility] ODALIS 1.2.840.114 [id number] Univers 00:00:00 00:00:00 Management Dk JADE [id number] ity of [place] 4[place]2.7.2.[place] [id number] [place] [address] Branch 2022-10-19 2022-10-19 Outpatient R DK GAXIOLA [facility] B [id number] Univers 13:30:00 14:37:34 TABBYDK NAVARRO [facility] 2022-10-19 2022-10-19 Office Jasmin [facility] ODALIS 1.2.840.114 [id number] Univers 13:30:00 14:37:34 Visit Dk JADE 350.1.13.10 it y of [place] 4[place]2.7.2.686 [place] [id number] [facility] [address] [place] 2022-10-19 2022-10-19 Orders Doctor MARY [id number] Univers 00:00:00 00:00:00 Only Unassigned, TAMMY 350.1.13.10 ity of [place] [facility] 4.2.7.2.686 [place] [id number] [facility] 009 Branch 2020-06-05 2020-06-05 Emergency Mayers, [facility] [id number] Univers 15:48:00 18:17:00 Moo Iniguez 350.1.13.10 i ty of [place] 4[place]2.7.2.[place] [id number] [facility] 084 Branch 2020-06-05 2020-06-05 Emergency Mayers, [facility] [id number] 15:48:00 18:17:00 Moo [place] 350.1.13.10 [place] 4.2.7.2.686 [place] [id number] 2020-06-05 2020-06-05 Emergency X YASMANI, [facility] ERT [id number] Univers 15:48:00 15:48:00 MOO cho [facility] Results Test Description Test Time Test Comments Results Result Comments Source POCT TEST 2022-10-19 19:43:00 Test Item Value Reference Range Interpretation Comme nts POCT PREG (test code = 1605) Negative On board controls acceptable with C Line (test code = 3574) Yes POCT PREG LOT # (test code = 3575) POCT PREG TEST DATE (test code = 3576) [id number] 19:43:00 Test Item Value Reference Range Interpretation Comments POCT PREG (test code = 1605) Negative On board controls acceptable with C Yes Line (test code = 3574) POCT PREG LOT # (test code = 3575) POCT PREG TEST DATE (test code = 3576) [facility] 23[facility]26:00 Test Item Value Reference Range Interpretation Comments APPEARANCE (test code = Clear Clear 9475278380) COLOR (test code = Yellow Yellow 9434458895) PH (test code = 4.8-8.0 4333634287) SP GRAVITY (test code = 1.003-1.030 7001401334) GLU U QUAL (test code = Normal Normal 0794795075) BLOOD (test code = 2+ Negative A 3891287463) KETONES (test code = Negative Negative 3292472891) PROTEIN (test code = Negative Negative 2887-8) UROBILIN (test code = Normal Normal 1215459593) BILIRUBIN (test code = Negative Negative 8959627565) NITRITE (test code = Negative Negative 3429505908) LEUK LORA (test code = 500/uL Negative A 9497438622) RBC/HPF (test code = See_Comment [Autom ated message] 4732936333) The system [employer] generated this result transmitted ref erence range: 0 - 3 HP F. The reference range was not used to int erpret this result as normal/abnormal . WBC/HPF (test code = See_Comment H [Autom ated message] 4185070802) The system [employer] generated this result transmitted ref erence range: 0 - 5 HP F. The reference range was not used to int erpret this result as normal/abnormal . BACTERIA (test code = Few Negative A 3816451553) MUCOUS (test code = Slight Negative LPF A 0320315867) SQ EPITH (test code = HPF 3185035463) HYAL CAST (test code = See_Comment [Aut omated message] 7845933526) The system [employer] generated this result transmitted ref erence range: <=2 LPF. The reference range was not used to int erpret this result as normal/abnormal . Lab Interpretation (test Abnormal code = 48285-2) [facility]
[2023-01-02 03:29] LABS: Absolute Lymphocytes (CBC) 0.9 K/uL (0.7-4.9); Hematocrit 40.8 % (36.0-45.0); Lymphocytes % 6.3 % (15.3-44.8); MCV 91.7 fL (80-100); MPV 8.9 fL (7.6-11.3); Platelets 274 thou/uL (152-406); RBC Red Blood Cell Count 4.45 M/uL (3.86-4.86)
[2023-01-02 03:32] LABS: Specific Gravity 1.024 (1.005-1.030)
[2023-01-02 03:33] LABS: Specific Gravity 1.024 (1.005-1.030); Urine Bacteria None Seen /HPF (<20); Urine Bilirubin NEGATIVE (Negative); Urine Blood Negative (Negative); Urine Clarity Turbid (Clear); Urine Color Yellow (Yellow); Urine Crystals Unidentified Few /HPF (None Seen); Urine Glucose NEGATIVE (Negative); Urine Mucus Slight /HPF (None Seen); Urine Protein TRACE (Negative); Urine RBC <5 /HPF (None Seen); Urine Urobilinogen 1+ (Normal)
[2023-01-02 03:48] LABS: Potassium 3.7 mEq/L (3.5-5.1); Protein, Total 7.4 g/dL (6.4-8.2)
[2023-01-02] MEDS ORDERED: FENTANYL CITR 100 MCG/2 ML ONE (03:59)
[2023-01-02] MEDS ORDERED: NA CHLORIDE 0.9% 1,000 ML ONE (03:59)
[2023-01-02] MEDS ORDERED: ONDANSETRON 4 MG/2 ML VIAL ONE (03:59)
--- NOTE | 2023-01-02 05:09 | ER ---
Nurse's Notes [facility] Name: Radha Kuhn Age: 22 yrs Sex: Female : 2000 Arrival Date: 01/02/2023 Time: 02:39 Bed 6 Private MD: Diagnosis: Cholecystitis, unspecified;Other cholelithiasis with obstruction;Elevated white blood cell count;Epigastric abdominal tenderness Presentation: 01/02 02:55 Chief complaint: Patient states: upper abdominal pain of 4 that radiates to bilateral pf1 upper rib cage region with vomiting, x 3-4 episodes onset 2300 tonight. Coronavirus screen: Vaccine status: Patient reports receiving the 1st dose of the Covid vaccine. Client denies travel out of the [place] in the last 14 days. Client presents with at least one sign or symptom that may indicate coronavirus-19. Ebola Screen: Patient negative for fever greater than or equal to 101.5 degrees Fahrenheit, and additional compatible Ebola Virus Disease symptoms. Initial Sepsis Screen: Does the patient meet any 2 criteria? No. Patient's initial sepsis screen is negative. Does the patient have a suspected source of infection? No. Patient's initial sepsis screen is negative. Risk Assessment: Do you want to hurt yourself or someone else? Patient reports no desire to harm self or others. 02:55 Method Of Arrival: Ambulatory pf1 02:55 Acuity: BHAKTI 3 pf1 03:27 Onset of symptoms was January 02, 2023. rv Triage Assessment: 03:26 General: Appears in no apparent distress. uncomfortable, Behavior is calm, cooperative. rv Pain: Complains of pain in RIB. Neuro: Level of Consciousness is awake, alert, obeys commands, Oriented to person, place, time, situation. Cardiovascular: Capillary refill < 3 seconds. Respiratory: Airway is patent Respiratory effort is even, unlabored. GI: Reports upper abdominal pain. : No deficits noted. Derm: Skin is intact. 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 - Social history:: Smoking status: Reported history of juuling and/or vaping. Patient uses street drugs, marijuana, daily use of marijuana, Patient/guardian denies using alcohol. Screenin:26 [facility] ED Fall Risk Assessment (Adult) History of falling in the last 3 months, rv including since admission No falls in past 3 months (0 pts) Confusion or Disorientation No (0 pts) Intoxicated or Sedated No (0 pts) Impaired Gait No (0 pts) Mobility Assist Device Used No (0 pt) Altered Elimination No (0 pt) Score/Fall Risk Level 0 - 2 = Low Risk Oriented to surroundings, Maintained a safe environment, Educated pt \T\ family on fall prevention, incl call for assistance when getting out of bed, Assessed \T\ reinforced patient's understanding of fall precautions, Provided non-skid footwear, Hourly rounding (assess needs \T\ fall precautionary measures) done, Used ambulatory aids as needed (educated on \T\ assisted with), Used gait belt as appropriate. Abuse screen: Denies threats or abuse. Denies injuries from another. Nutritional screening: No deficits noted. Tuberculosis screening: No symptoms or risk factors identified. Assessment: 06:30 Reassessment: No changes from previously documented assessment. Patient is alert, rv oriented x 3, equal unlabored respirations, skin warm/dry/pink. GI: No deficits noted. Vital Signs: 02:55 BP 118 / 80; Pulse 82; Resp 18; Temp 98.8; Pulse Ox 99% on R/A; Weight 65.77 kg; Height pf1 4 ft. 11 in. ; Pain 4/10; 03:27 BP 116 / 71; Pulse 79; Resp 17; Temp 98; Pulse Ox 99% on R/A; rv 06:29 BP 104 / 68; Pulse 74; Resp 17; Temp 98; Pulse Ox 99% on R/A; rv 02:55 Body Mass Index 29.29 (65.77 kg, 149.86 cm) pf1 02:55 Pain Scale: Adult pf1 [place] Coma Score: 06:29 Eye Response: spontaneous(4). Motor Response: obeys commands(6). Verbal Response: rv oriented(5). Total: 15. ED Course: 02:40 Patient arrived in ED. am2 03:00 Triage completed. pf1 03:09 Will iPerce, MADISON is Primary Nurse. rv 03:25 No provider procedures requiring assistance completed. Inserted saline lock: 20 gauge rv in right antecubital area, using aseptic technique. Blood collected. 03:25 Patient has correct armband on for positive identification. Placed in gown. Bed in low rv position. Call light in reach. Side rails up X 1. Provided Education on: CHEST PAIN. Client placed on continuous cardiac and pulse oximetry monitoring. NIBP monitoring applied. wafer abrading machine tender on. 03:27 Arm band placed on right wrist. rv 03:29 Shai Meyers MD is Attending Physician. eugenia 04:15 Chest Single View XRAY In Process Unspecified. EDMS 04:45 US Abdomen Limited In Process Unspecified. EDMS 05:07 Mitesh Hauser MD is Hospitalizing Provider. eugenia 06:02 David Antonio MD is Referral Physician. eugenia 06:03 Referral Physician role handed off by David Antonio MD eugenia 06:03 Mitesh Hauser MD is Referral Physician. eugenia 06:30 IV discontinued, intact, bleeding controlled, No redness/swelling at site. Pressure rv dressing applied. Administered Medications: 03:54 Drug: NS 0.9% IV 1000 ml Route: IV; Rate: 1 bolus; Site: right antecubital; rv 06:28 Follow up: IV Status: Completed infusion; IV Intake: 1000ml rv 03:54 Drug: fentaNYL (PF) IVP 25 mcg Route: IVP; Site: right antecubital; rv 06:28 Follow up: Response: No adverse reaction; Marked relief of symptoms rv 03:54 Drug: Ondansetron IVP 4 mg Route: IVP; Site: right antecubital; rv 06:28 Follow up: Response: No adverse reaction rv 06:00 Drug: Piperacillin-Tazobactam IVPB 3.375 grams Route: IVPB; Infused Over: 60 mins; rv Site: right antecubital; 06:28 Follow up: Response: No adverse reaction; IV Status: Completed infusion rv 06:28 Drug: fentaNYL (PF) IVP 25 mcg Route: IVP; Site: right antecubital; rv 06:28 Follow up: Response: Medication administered at discharge. rv Medication: 03:27 VIS not applicable for this client. rv Intake: 06:28 IV: 1000ml; Total: 1000ml. rv Outcome: 05:08 Decision to Hospitalize by Provider. eugenia 06:04 Discharge ordered by . eugenia 06:29 Discharged to home ambulatory. rv 06:29 Condition: stable 06:29 Discharge instructions given to patient, Instructed on discharge instructions, follow up and referral plans. Demonstrated understanding of instructions, follow-up care. 06:30 Patient left the ED. rv Signatures: Dispatcher [employer] EDWV Shai Meyers MD MD cha Moreno, Amanda am2 Vicente, Ronaldo RN RN rv Madalyn Amaral RN RN pf1
--- NOTE | 2023-01-02 05:09 | EDPHYS ---
Physician Documentation [facility] Name: Radha Kuhn Age: 22 yrs Sex: Female : 2000 Arrival Date: 01/02/2023 Time: 02:39 Bed 6 Private MD: KYLER Physician Shai Meyers HPI: 01/02 04:11 This 22 yrs old Female presents to ER via Ambulatory with complaints of rib eugenia pain, Nausea/Vomiting. 04:11 The patient presents to the emergency department with nausea, vomiting, abdominal pain, eugenia of the right upper quadrant and left upper quadrant. Onset: The symptoms/episode began/occurred just prior to arrival. Possible causes: unknown. The symptoms are aggravated by nothing. The symptoms are alleviated by nothing. Associated signs and symptoms: Pertinent positives: abdominal pain. Severity of symptoms: At their worst the symptoms were mild moderate in the emergency department the symptoms have improved moderately. The patient has experienced similar episodes in the past, a few times. 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 - Social history:: Smoking status: Reported history of juuling and/or vaping. Patient uses street drugs, marijuana, daily use of marijuana, Patient/guardian denies using alcohol. ROS: 04:12 Constitutional: Negative for fever, chills, and weight loss, Eyes: Negative for injury, eugenia pain, redness, and discharge, ENT: Negative for injury, pain, and discharge, Neck: Negative for injury, pain, and swelling, Cardiovascular: Negative for chest pain, palpitations, and edema, Respiratory: Negative for shortness of breath, cough, wheezing, and pleuritic chest pain, Back: Negative for injury and pain, : Negative for injury, bleeding, discharge, and swelling, MS/Extremity: Negative for injury and deformity, Skin: Negative for injury, rash, and discoloration, Neuro: Negative for headache, weakness, numbness, tingling, and seizure, Psych: Negative for depression, anxiety, suicide ideation, homicidal ideation, and hallucinations, Allergy/Immunology: Negative for hives, rash, and allergies, Endocrine: Negative for neck swelling, polydipsia, polyuria, polyphagia, and marked weight changes, Hematologic/Lymphatic: Negative for swollen nodes, abnormal bleeding, and unusual bruising. 04:12 Abdomen/GI: Positive for abdominal pain, nausea and vomiting, of the right upper quadrant and left upper quadrant. Exam: 04:12 Constitutional: This is a well developed, well nourished patient who is awake, alert, eugenia and in no acute distress. Head/Face: Normocephalic, atraumatic. Eyes: Pupils equal round and reactive to light, extra-ocular motions intact. Lids and lashes normal. Conjunctiva and sclera are non-icteric and not injected. Cornea within normal limits. Periorbital areas with no swelling, redness, or edema. ENT: Nares patent. No nasal discharge, no septal abnormalities noted. Tympanic membranes are normal and external auditory canals are clear. Oropharynx with no redness, swelling, or masses, exudates, or evidence of obstruction, uvula midline. Mucous membranes moist. Neck: Trachea midline, no thyromegaly or masses palpated, and no cervical lymphadenopathy. Supple, full range of motion without nuchal rigidity, or vertebral point tenderness. No Meningismus. Chest/axilla: Normal chest wall appearance and motion. Nontender with no deformity. No lesions are appreciated. Cardiovascular: Regular rate and rhythm with a normal S1 and S2. No gallops, murmurs, or rubs. Normal PMI, no JVD. No pulse deficits. Respiratory: Lungs have equal breath sounds bilaterally, clear to auscultation and percussion. No rales, rhonchi or wheezes noted. No increased work of breathing, no retractions or nasal flaring. Back: No spinal tenderness. No costovertebral tenderness. Full range of motion. Skin: Warm, dry with normal turgor. Normal color with no rashes, no lesions, and no evidence of cellulitis. MS/ Extremity: Pulses equal, no cyanosis. Neurovascular intact. Full, normal range of motion. Neuro: Awake and alert, GCS 15, oriented to person, place, time, and situation. Cranial nerves II-XII grossly intact. Motor strength 5/5 in all extremities. Sensory grossly intact. Cerebellar exam normal. Normal gait. Psych: Awake, alert, with orientation to person, place and time. Behavior, mood, and affect are within normal limits. 04:12 Abdomen/GI: Inspection: abdomen appears normal, Bowel sounds: normal, Palpation: mild abdominal tenderness, in the right upper quadrant and left upper quadrant, Liver: no appreciated palpable abnormalities. 04:20 ECG was reviewed by the Attending Physician. eugenia Vital Signs: 02:55 BP 118 / 80; Pulse 82; Resp 18; Temp 98.8; Pulse Ox 99% on R/A; Weight 65.77 kg; Height pf1 4 ft. 11 in. ; Pain 4/10; 03:27 BP 116 / 71; Pulse 79; Resp 17; Temp 98; Pulse Ox 99% on R/A; rv 06:29 BP 104 / 68; Pulse 74; Resp 17; Temp 98; Pulse Ox 99% on R/A; rv 02:55 Body Mass Index 29.29 (65.77 kg, 149.86 cm) pf1 02:55 Pain Scale: Adult pf1 [place] Coma Score: 06:29 Eye Response: spontaneous(4). Motor Response: obeys commands(6). Verbal Response: rv oriented(5). Total: 15. MDM: 03:30 Patient medically screened. eugenia 03:31 Patient medically screened. eugenia 04:13 Differential diagnosis: Nonspecific abd pain, gastritis, cholecystitis, pancreatitis, eugenia appendicitis, viral gastroenteritis, gastroenteritis. Data reviewed: vital signs, nurses notes, lab test result(s), EKG, radiologic studies, plain films, ultrasound. Consideration of Admission/Observation Escalation of care including admission/observation considered. I considered the following discharge prescriptions or medication management in the emergency department Medications were administered in the Emergency Department. See MAR. Test considered but Not performed: CT: ct chest. Care significantly affected by the following chronic conditions: anxiety, depression, headaches. Counseling: I had a detailed discussion with the patient and/or guardian regarding: the historical points, exam findings, and any diagnostic results supporting the discharge/admit diagnosis, lab results, radiology results, the need for outpatient follow up, for definitive care, a family practitioner, a general surgeon. 06:02 ED course: pt wants to leave, despite warnings and explaniation. [facility] 01/02 03:16 Order name: CBC with Diff; Complete Time: 03:44 pf1 01/02 03:16 Order name: CMP; Complete Time: 05:03 pf1 01/02 03:16 Order name: Lipase; Complete Time: 05:03 pf1 01/02 03:16 Order name: Test, Urine; Complete Time: 03:44 pf1 01/02 03:16 Order name: Urinalysis w/ reflexes; Complete Time: 03:44 pf1 01/02 03:24 Order name: Chest Single View XRAY pf1 01/02 03:46 Order name: US Abdomen Limited eugenia 01/02 05:09 Order name: CT Abd/Pelvis - IV Contrast Only pf1 01/02 03:16 Order name: IV Saline Lock; Complete Time: 03:25 pf1 01/02 03:16 Order name: Labs collected and sent; Complete Time: 03:25 pf EC:20 Rate is 69 beats/min. Rhythm is regular. QRS [place] is Normal. SC interval is normal. QRS eugenia interval is normal. QT interval is normal. No Q waves. T waves are Normal. No ST changes noted. Clinical impression: Normal ECG and No evidence of ischemia. Interpreted by me. Reviewed by me. Administered Medications: 03:54 Drug: NS 0.9% IV 1000 ml Route: IV; Rate: 1 bolus; Site: right antecubital; rv 06:28 Follow up: IV Status: Completed infusion; IV Intake: 1000ml rv 03:54 Drug: fentaNYL (PF) IVP 25 mcg Route: IVP; Site: right antecubital; rv 06:28 Follow up: Response: No adverse reaction; Marked relief of symptoms rv 03:54 Drug: Ondansetron IVP 4 mg Route: IVP; Site: right antecubital; rv 06:28 Follow up: Response: No adverse reaction rv 06:00 Drug: Piperacillin-Tazobactam IVPB 3.375 grams Route: IVPB; Infused Over: 60 mins; rv Site: right antecubital; 06:28 Follow up: Response: No adverse reaction; IV Status: Completed infusion rv 06:28 Drug: fentaNYL (PF) IVP 25 mcg Route: IVP; Site: right antecubital; rv 06:28 Follow up: Response: Medication administered at discharge. rv Disposition Summary: 01/02/23 06:04 Discharge Ordered Location: Home(01/02/23 06:04) eugenia Problem: new(01/02/23 06:04) eugenia Symptoms: have improved(01/02/23 06:04) eugenia Condition: Stable(01/02/23 06:04) eugenia Diagnosis - Cholecystitis, unspecified(01/02/23 06:04) eugenia - Other cholelithiasis with obstruction(01/02/23 06:04) eugenia - Elevated white blood cell count(01/02/23 06:04) eugenia - Epigastric abdominal tenderness(01/02/23 06:04) eugenia Followup: eugenia - With: Private Physician - When: 2 - 3 days - Reason: Recheck today's complaints, Continuance of care, Re-evaluation by your physician Followup: eugenia - With: - When: 2 - 3 days - Reason: Recheck today's complaints, Continuance of care, Re-evaluation by your physician Followup: eugenia - With: Mitesh Hauser MD - When: Upon discharge from the Emergency Department - Reason: Recheck today's complaints, Re-evaluation by your physician Discharge Instructions: - Discharge Summary Sheet eugenia - Abdominal Pain, Adult eugenia - Biliary Colic, Adult eugenia - Cholelithiasis eugenia - Cholelithiasis, [id number] eugenia - Cholecystitis, [id number] eugenia Forms: - Medication Reconciliation Form eugenia - Thank You Letter eugenia - Antibiotic Education eugenia - Prescription Opioid Use eugenia - Patient Portal Instructions eugenia - Work release form eb Signatures: Dispatcher [employer] EDShai Garcia MD MD cha Garcia, Cindy, RN RN cg Vicente, Ronaldo, RN RN rv Finley, Pamala, RN RN pf1 Corrections: (The following items were deleted from the chart) 05:32 05:08 eugenia cg 06:01 05:08 Observation eugenia eugenia 06:01 05:08 Mitesh Hauser cha eugenia 06:01 05:08 Telemetry/MedSurg (observation) eugenia eugenia 06:01 05:08 Stable eugenia eugenia 06:01 05:08 new eugenia eugenia 06:01 05:08 have improved eugenia eugenia 06:01 05:08 Standard eugenia eugenia 06:01 05:08 Epigastric abdominal tenderness eugenia eugenia 06:01 05:08 Cholecystitis, unspecified eugenia eugenia 06:01 05:08 Other cholelithiasis with obstruction eugenia eugenia 06:01 05:08 Elevated white blood cell count eugenia bello 06:01 05:32 218 cg eugenia
[2023-01-02] MEDS ORDERED: NA CHLORIDE 0.9% 100 ML ONE (05:58)
[2023-01-02] MEDS ORDERED: PIPERACIL/TAZO 3.375 GM VIAL IV ONE (05:58)
[2023-01-02 06:59] VITALS: O2SAT 99
[2023-01-02 07:01] VITALS: TEMP 98
[2023-01-02 07:02] VITALS: BP 104/68
--- NOTE | 2023-01-02 21:08 | RAD REPORT ---
EXAM DESCRIPTION: Abdomen Pelvis W Contrast CLINICAL HISTORY: 22 years Female ABD PAIN COMPARISON: None TECHNIQUE: CT of the abdomen and pelvis with intravenous contrast. All CT scans at this facility use dose modulation, iterative reconstruction, and/or weight based dosi ng when appropriate to reduce radiation dose to as low as reasonably achievable. FINDINGS: Lower thorax: Lung bases are clear Abdomen: Stomach: Within normal limits Liver: No focal lesions. No intrahepatic ductal distention. Gallbladder: Nondistended Pancreas: Within normal limits Spleen: Within normal limits Right kidney: No hydronephrosis. No focal lesion. Left kidney: No hydronephrosis. No focal lesion. Adrenal glands: Within normal limits Vascular structures: Within normal limits Nodes: No lymphadenopathy by size criteria Pelvis: Small bowel: No significant distention. Appendix: Within normal limits Colon: No distention or acute pericolonic edema. Peritoneum: No free intraperitoneal fluid or air. Bones: No acute bone findings. Bladder: Unremarkable. Reproductive organs: No acute findings. IMPRESSION: No acute abdominopelvic findings. Electronically signed by: Madelin Baker MD 01/02/2023 6:08 AM CDT Due to temporary technical issues with the PACS/Fluency reporting system, reports are being signed by the in house radiologists without review as a courtesy to insure prompt reporting. The interpreting radiologist is fully responsible for the content of the report.
--- NOTE | 2023-01-02 21:41 | RAD REPORT ---
EXAM DESCRIPTION: Abdomen Exam Limited CLINICAL HISTORY: ABD PAIN COMPARISON: None. TECHNIQUE: Real-time sonographic images of the gallbladder were obtained using a curved multihertz t ransducer. FINDINGS: Liver: The visualized liver has normal contour and echogenicity. The common bile duct enio ures 0.5 cm. Gallbladder: Gallbladder is not well-distended. No gallstones identified. Gallbladder wall thickness of 0.4 cm. Sonographic Grayson's sign not provided. IMPRESSION: 1. No gallstones identified. 2. Mild wall thickening of the gallbladder may be related to underdistention. Electronically signed by: David Berg 01/02/2023 5:40 AM CDT Due to temporary technical issues with the PACS/Fluency reporting system, reports are being signed by the in house radiologists without review as a courtesy to insure prompt reporting. The interpreting radiologist is fully responsible for the content of the report.
--- NOTE | 2023-01-02 21:43 | RAD REPORT ---
EXAM DESCRIPTION: Chest Radiography COMPARISON: None. CLINICAL HISTORY: [facility] MAIN Rib Pain - Right;Rib Pain - Left FINDINGS: A single AP view of the chest demonstrates a normal cardiomediastinal silhouette. No pneumothorax or pleural effusion. No consolidation or pulmonary edema. Osseous structures are intact. IMPRESSION: No acute chest process. Electronically signed by: William Mcmahan MD 01/02/2023 5:13 AM CDT Due to temporary technical issues with the PACS/Fluency reporting system, reports are being signed by the in house radiologists without review as a courtesy to insure prompt reporting. The interpreting radiologist is fully responsible for the content of the report.
--- NOTE | 2023-01-04 13:07 | EKG ---
Test Date: 2023-01-02 Test Time: 03:15:05 Fiber Heel Piece Shaper: RV MEASUREMENT RESULTS: Intervals: Rate: 69 MT: 122 QRSD: 72 QT: 374 QTc: 400 Moran: P: 22 MT: 122 QRS: 63 T: 21 INTERPRETIVE STATEMENTS: Normal sinus rhythm with sinus arrhythmia Normal ECG Compared to ECG 03/19/2019 21:45:58 No significant changes Electronically Signed On 01-04-23 13:05:07 CDT by Carlo Galo
--- NOTE | 2023-01-07 13:32 | P.PN ---
Date of Service: 01/07/23 This patient, was evaluated in the emergency room and was to be admitted to my service based on the typical history and findings. The patient then decided that she did not want to stay. She was discharged from the emergency room AGAINST MEDICAL ADVICE before I had an opportunity to see her.
== END 2023-01-02 06:50 | disposition home health service (06) ==
LOC: ER 02:39 → ERHOLD 05:14
PROVIDERS: ADMIT Surgery; ATTEND Surgery
DX: K80.11 Calculus of gallbladder with chronic cholecystitis with obstruction (principal); D72.829 Elevated white blood cell count, unspecified; R10.13 Epigastric pain
CPT/HCPCS: 96365; 96361; 93005; 85025; 81001; 36415; 81025; 83690; 80053; 74177; 71045; 76705; 96375; 99285; Q9967; J2543; J3010; J2405; J7030

== ENCOUNTER 2023-04-04 14:21 | Emergency (ER) | payer OTHER ==
--- OUTSIDE RECORDS SUMMARY | 2023-04-04 14:29 | XMS REPORT | Continuity of Care Document ---
:2000 Author Organization [facility] t Address [address] [place] [address] [place] [id number] Care Team Providers Name Role Phone PCP, PATIENT DOES NOT HAVE A Primary Care Physician Unavailcaroline Gaxiola NP, Dk Attending Clinician DK GAXIOLA Attending Clinician Unavailable Doctor Unassigned, [place] Attending Clinician Unavailable Moo Wharton Attending Clinician MOO MAYERS Attending Clinician Unavailable Payers Payer Name Policy Type Policy Number Effective Date Expiration Date [facility] [id number] 2022 [facility] 00:00:00 Problems Condition Condition Condition Status Onset Resolution Last Treating Co mments Source Name Details Category Date Date Treatment Clinician Date Encounter Encounter Disease Active 2020-0 Uni vers for for 4-27 ity of supervisio supervisio 00:00: Quinn krause n of n of 00 Medical normal normal Branch first first in first in first trimester trimester Nausea and Nausea and Disease Active 2020-0 U nivers vomiting vomiting 4-27 ity of during during 00:00: [place] 00 [facility] prior to prior to Branch 22 weeks 22 weeks gestation gestation Obesity Obesity Disease Active 2020-0 Univers (BMI (BMI 4-27 ity of 30-39.9) 30-39.9) 00:00: [place] 00 Medical Branch Trichomona Trichomona Disease Active 2020-0 U nivers s s 4-27 [place]y of vaginalis vaginalis [place] 00 [facility] Branch Allergies, Adverse Reactions, Alerts Allergy Allergy Status Severity Reaction(s) Onset Inactive Treating Comm ents Source Name Type Date Date Clinician NO KNOWN Drug Active Univers ALLERGIE Class ity of S [facility] Social History Social Habit Start Date Stop Date Quantity Comments Source ASSERTION 2019-08-25 [facility] 00:00:00 [facility] Alcohol intake 2022-10-23 2022-10-23 Ex-drinker [facility] 00:00:00 00:00:00 (finding) [facility] Exposure to 2022-10-09 2022-10-19 Not sure [facility] SARS-CoV-2 00:00:00 13:44:00 [facility] (event) [place] Tobacco use and 2022-10-19 2022-10-19 Smokeless tobacco Un iversity of exposure 00:00:00 00:00:00 non-user [facility] Sex Assigned At [birth year] Universit y of 00:00:00 00:00:00 [facility] Smoking Status Start Date Stop Date Source Never smoked tobacco [facility] Medications Ordered Filled Start Stop Current Ordering Indication Dosage Frequency Signature Comments Components Source Medication Medication Date Date Medication? Clinician (SIG) Name Name metroNIDAZO 2022- No [id number] 500mg Take 1 Univers LE 500 mg 10-20 tablet by ity of tablet 00:00: 04:59 mouth [place] 00 :00 every 12 Medical (twelve) Branch hours for 7 days. medroxyPROG 2022- No [id number] 150mg Univers ESTERone 5-22 - ity of (DEPO-PROVE 22:30: 21:41 [place] RA) syringe 00 :00 Medical 150 mg Branch medroxyPROG 0 2022- No [id number] 150mg 150 mg, Univers ESTERone 5-22 -22 Intramuscu ity of (DEPO-PROVE 22:30: 21:41 lar, ONCE, [place] RA) syringe 00 :00 1 dose, On Me dical 150 mg Mon [place] 10/19/22 at 1730, Routine medroxyPROG 2022- No [id number] 150mg Univers ESTERone 5-22 -22 ity of (DEPO-PROVE 22:30: 21:41 [place] RA) syringe 00 :00 Medical 150 mg Branch medroxyPROG 2022- No [id number] 150mg 150 mg, Univers ESTERone -19 10-22 Intramuscu ity of (DEPO-PROVE 22:30: 21:41 lar, ONCE, [place] RA) syringe 00 :00 1 dose, On [...] the Medical tablet morning. Branch metroNIDAZO 2022- No [id number] 500mg Take 1 Univers LE 500 mg 5-22 05-30 tablet by ity of tablet 00:00: 04:59 mouth [place] 00 :00 every 12 Medical (twelve) Branch hours for 7 days. metroNIDAZO 2022- No [id number] 500mg Take 1 Univers LE 500 mg 5-22 05-30 tablet by ity of tablet 00:00: 04:59 mouth [place] 00 :00 every 12 Medical (twelve) Branch hours for 7 days. metroNIDAZO 2022- No [id number] 500mg Take 1 Univers LE 500 mg [...] 1 [place] as mg 00 :00 dose, [facility] Medical 06/05/20 at [place] 1900, FLAKITA
Re ason for Anti-Infec tive: Documented Infection< br>Documen ariel Infection Site: Urine
D uration of Therapy: 7 days butalbital- 2020- No 1{tbl} 1 tablet, Univers acetaminoph 06-06 Oral, ONCE i ty of en-caff 01:00: 12:59 NOW, 1 [place] (ESGIC) 00 :00 dose, [facility] Medical 50-325-40 06/05/20 at [facility] h mg tablet 1 1899, FLAKITA tablet Yes 1{tbl} Take 1 Unive rs vit w/iron 4-27 tablet by ity of fumarate 13:43: mouth [place] and FA 40 daily. Medical tablet Branch Yes 1{tbl} Take 1 Unive rs vit w/iron 4-27 tablet by ity of fumarate 08:43: mouth [place] and FA 40 daily. Medical tablet Branch proMETHazin 0 Yes [id number] 25mg Take 1 Univers e 25 mg 4-27 tablet by ity of tablet 00:00: mouth [place] 00 every 4 Medical (four) Branch hours as needed for Nausea and Vomiting (N/V). proMETHazin 0 Yes [id number] 25mg Take 1 Univers e 25 mg 4-27 tablet by ity of tablet 00:00: mouth [place] 00 every 4 Medical (four) Branch hours as needed for Nausea and Vomiting (N/V). proMETHazin 0 Yes [id number] 25mg Take 1 Univers e 25 mg 4-27 tablet by ity of tablet 00:00: mouth [place] 00 every 4 Medical (four) Branch hours as needed for Nausea and Vomiting (N/V). proMETHazin 2020-0 Yes [id number] 25mg Take 1 Univers e 25 mg 4-27 tablet by ity of tablet 00:00: mouth [place] 00 every 4 Medical (four) Branch hours as needed for Nausea and Vomiting (N/V). proMETHazin 2020-0 Yes [id number] 25mg Take 1 Univers e 25 mg 4-27 tablet by ity of tablet 00:00: mouth [place] 00 every 4 Medical (four) Branch hours as needed for Nausea and Vomiting (N/V). Vital Signs Vital Name Observation Time Observation Value Comments Source Systolic blood 2022-10-19 19:08:00 107 mm[Hg[facility] 2022-10-19 19:08:00 71 mm[Hg] Unive [facility] Heart rate 2022-10-19 19:06:00 76 /min [facility] Respiratory rate 2022-10-19 19:06:00 18 /min [facility] Body height 2022-10-19 19:06:00 149.9 cm [facility] Body weight 2022-10-19 19:06:00 66.225 kg [facility] BMI 2022-10-19 19:06:00 29.49 kg/m2 [facility] Systolic blood 2020-06-05 21:47:00 107 mm[Hg] [facility] Diastolic blood 2020-06-05 21:47:00 75 mm[Hg] [facility] 2020-06-05 21:47:00 72 /min [facility] Body temperature 2020-06-05 21:47:00 36.11 [facility] Respiratory rate 2020-06-05 21:47:00 14 /min [facility] Body height 2020-06-05 21:47:00 149.9 cm [facility] Body weight 2020-06-05 21:47:00 68.947 kg Universi ty [facility] [place] [facility] BMI 2020-06-05 21:47:00 30.70 kg/m2 Universi ty [facility] [place] [facility] [place] Oxygen saturation in 2020-06-05 21:47:00 99 /min University of Arterial blood by [facility] Pulse oximetry Branch Systolic blood 2020-06-05 21:47:00 107 mm[Hg] Univer sity of pressure [facility] Diastolic blood 2020-06-05 21:47:00 75 mm[Hg] Unive rsity of pressure [facility] Heart rate 2020-06-05 21:47:00 72 /min Universi [facility] Body temperature 2020-06-05 21:47:00 36.11 [facility] Respiratory rate 2020-06-05 21:47:00 14 /min [facility] Body height 2020-06-05 21:47:00 149.9 cm Universi [facility] [place] Body weight 2020-06-05 21:47:00 68.947 kg Universi ty [facility] [place] [facility] BMI 2020-06-05 21:47:00 30.70 kg/m2 Universi ty [facility] [place] [facility] Oxygen saturation in 2020-06-05 21:47:00 99 /min University of Arterial blood by [facility] Pulse oximetry Branch Procedures Procedure Date / Time Performing Clinician Source Performed GC & CHLAMYDIA 2022-10-19 19:26:00 Dk Gaxiola [facility] AMPLIFIED [facility] TRICHOMONAS AMPLIFIED 2022-10-19 19:26:00 [facility] 2022-10-19 18:43:14 Doctor Unassigned, No [facility] POCT TEST 2022-10-19 00:00:00 Dk Gaxiola [facility] URINALYSIS 2020-06-05 22:18:00 Moo Mayers [facility] NOTICE OF PRIVACY 2020-06-05 21:38:51 Doctor Unassigned, No Univ [facility] Encounters Start End Encounter Admission Attending Care Care Encounter Source Date/Time Date/Time Type Type Clinicians Facility Department ID 2023-01-11 2023-01-11 Outpatient R [facility] [id number] Univers 15:00:00 15:00:00 ity of [facility] 2022-10-20 2022-10-20 Case Jasmin WIPATY JACOBO [id number] Univers 00:00:00 00:00:00 Management Dk JADE [id number] ity of [place]2.[place] [id number] [address] 2022-10-19 2022-10-19 Outpatient R DK GAXIOLA [facility] B [id number] Univers 13:30:00 14:37:34 DK GAXIOLA itsurekha of [facility] 2022-10-19 2022-10-19 Office Jasmin [facility] ODALIS [id number] Univers 13:30:00 14:37:34 Visit Dk JADE [id number] it y of [place]2.[place] [id number] [facility] 134 [place] 2022-10-19 2022-10-19 Orders Doctor MARY [id number] Univers 00:00:00 00:00:00 Only Unassigned, TAMMY 350.1.13.10 ity of [place] [facility] 4.2.7.2.686 [place] as [id number] [facility] 009 Branch 2020-06-05 2020-06-05 Emergency [facility], [facility] [id number] Univers 15:48:00 18:17:00 Moo Sayre 350.1.13.10 i ty of [place] 4.2.7.2.686 [facility] s [place] [id number] [facility] 084 Branch 2020-06-05 2020-06-05 Emergency [place], [facility] 1.2.840.114 [id number] 15:48:00 18:17:00 Moo Sayre 350.1.13.10 [place] 4.2.7.2.686 [place] [id number] 2020-06-05 2020-06-05 Emergency X YASMANI, [facility] ERT [id number] Univers 15:48:00 15:48:00 MOO cho [facility] [place] [facility] Results Test Description Test Time Test Comments Results Result Comments Source POCT TEST 2022-10-19 19:43:00 Test Item Value Reference Range Interpretation Comme nts POCT PREG (test code = 1605) Negative On board controls acceptable with C Line (test code = 3574) Yes POCT PREG LOT # (test code = 3575) POCT PREG TEST DATE (test code = 3576) [facility] [id number] 19:43:00 Test Item Value Reference Range Interpretation Comments POCT PREG (test code = 1605) Negative On board controls acceptable with C Yes Line (test code = 3574) POCT PREG LOT # (test code = 3575) POCT PREG TEST DATE (test code = 3576) [facility]21-[facility] 23:26:00 Test Item Value Reference Range Interpretation Comments APPEARANCE (test code = Clear Clear [id number]) COLOR (test code = Yellow Yellow 4506180190) PH (test code = 4.8-8.0 1071828468) SP GRAVITY (test code = 1.003-1.030 3357709184) GLU U QUAL (test code = Normal Normal 0944938146) BLOOD (test code = 2+ Negative A 3303515896) KETONES (test code = Negative Negative 9770478967) PROTEIN (test code = Negative Negative 2887-8) UROBILIN (test code = Normal Normal 3936297731) BILIRUBIN (test code = Negative Negative 9142982000) NITRITE (test code = Negative Negative 8299093269) LEUK LORA (test code = 500/uL Negative A 7731380935) RBC/HPF (test code = See_Comment [Autom ated message] 6285629678) The system [employer] 360 generated this result transmitted ref erence range: 0 - 3 HP F. The reference range was not used to int erpret this result as normal/abnormal . WBC/HPF (test code = See_Comment H [Autom ated message] 4763887790) The system [employer] generated this result transmitted ref erence range: 0 - 5 HP F. The reference range was not used to int erpret this result as normal/abnormal . BACTERIA (test code = Few Negative A 5392573647) MUCOUS (test code = Slight Negative LPF A 6338582559) SQ EPITH (test code = HPF 0119182935) HYAL CAST (test code = See_Comment [Aut omated message] 4665291336) The system [employer] generated this result transmitted ref erence range: <=2 LPF. The reference range was not used to int erpret this result as normal/abnormal . Lab Interpretation (test Abnormal code = 68519-2) [facility]
[2023-04-04] MEDS ORDERED: NA CHLORIDE 0.9% 1,000 ML ONE (15:12)
[2023-04-04] MEDS ORDERED: MORPHINE 4 MG/ML SYR ONE (15:12)
[2023-04-04] MEDS ORDERED: ONDANSETRON 4 MG/2 ML VIAL ONE ×2 (15:12→19:59)
[2023-04-04 15:17] LABS: Absolute Lymphocytes (CBC) 0.7 K/uL (0.7-4.9); Hematocrit 46.2 % (36.0-45.0); Lymphocytes % 2.9 % (15.3-44.8); MCV 93.9 fL (80-100); Platelets 270 thou/uL (152-406); RBC Red Blood Cell Count 4.92 M/uL (3.86-4.86)
[2023-04-04 15:24] LABS: Albumin 4.3 g/dL (3.4-5.0); Bilirubin Total 0.8 mg/dL (0.2-1.0); Potassium 3.8 mEq/L (3.5-5.1); Protein, Total 8.1 g/dL (6.4-8.2)
--- NOTE | 2023-04-04 17:35 | RAD REPORT ---
EXAM DESCRIPTION: CT - Abdomen Pelvis W Contrast - 04/04/2023 4:54 pm CLINICAL HISTORY: ABD PAIN COMPARISON: Abdomen Pelvis W Contrast dated 01/02/2023 TECHNIQUE: Thin cut axial CT imaging of the abdomen and pelvis was performed following intravenous a dministration of 100 mL Isovue 300. Multiplanar reformats were generated and reviewed. All CT scans are performed using dose optimization technique as appropriate and may include automated exposure control or mA/KV adjustment according to patient size. FINDINGS: No suspicious findings in the lung bases. The liver, spleen, adrenal glands, and pancreas show no suspicious findings. Gallbladder and biliary tree are also without suspicious finding. Symmetric renal function is seen with no hydronephrosis or suspicious renal mass. No dilated bowel loops or bowel wall thickening. Appendix is unremarkable. No free air, free fluid or inflammatory stranding. No hernia, mass or bulky lymphadenopathy. The urinary bladder is without sig nificant finding. No suspicious bony findings. IMPRESSION: No acute intra-abdominal process.
[2023-04-04 17:37] LABS: Urine Bilirubin NEGATIVE (Negative); Urine Blood Negative (Negative); Urine Clarity Clear (Clear); Urine Color Colorless (Yellow); Urine Glucose NEGATIVE (Negative); Urine Protein NEGATIVE (Negative); Urine Urobilinogen Normal (Normal); Urine pH 5.5 (5.0-7.0)
[2023-04-04 17:47] LABS: Specific Gravity > 1.030 (1.005-1.030)
[2023-04-04 18:29] LABS: Specific Gravity > 1.030 (1.005-1.030)
--- NOTE | 2023-04-04 19:42 | RAD REPORT ---
EXAM DESCRIPTION: US - Abdomen Exam Limited - 04/04/2023 5:56 pm CLINICAL HISTORY: ruq pain;Abd pain COMPARISON: Abdomen Pelvis W Contrast dated 04/04/2023 TECHNIQUE: Sonographic grayscale and color flow images of the RUQ were obtained. FINDINGS: The gallbladder demonstrates no gallstones. No pericholecystic fluid or gallbladder wall t hickening. The common bile duct is normal measuring 2 mm. The liver demonstrates no findings of intrahepatic biliary dilatation. IMPRESSION: No acute abnormalities.
--- NOTE | 2023-04-04 19:44 | EDPHYS ---
Physician Documentation [facility] Name: Radha Kuhn Age: 22 yrs Sex: Female : 2000 Arrival Date: 04/04/2023 Time: 14:21 Bed 6 Private MD: ED Physician Karan Reina HPI: 04/04 14:41 This 22 yrs old Female presents to ER via Ambulatory with complaints of jh7 Abdominal Pain, Back Pain. 14:41 The patient presents with abdominal pain in the right upper quadrant. Onset: The jh7 symptoms/episode began/occurred acutely. The symptoms radiate to the right flank. Associated signs and symptoms: Pertinent positives: nausea and vomiting, Pertinent negatives: constipation, diarrhea, fever. The patient has experienced a previous episode. History of cholelithiasis. Historical: - Allergies: 14:41 No Known Allergies; cm10 - PMHx: 14:41 Anxiety; Bronchitis; Depression; Headaches; cm10 - PSHx: 14:41 left foot surgery; cm10 - Immunization history:: Adult Immunizations unknown. - Social history:: Smoking status: Reported history of juuling and/or vaping. ROS: 14:41 Constitutional: Negative for fever, chills, and weight loss, Eyes: Negative for injury, jh7 pain, redness, and discharge, Neck: Negative for injury, pain, and swelling, Cardiovascular: Negative for chest pain, palpitations, and edema, Respiratory: Negative for shortness of breath, cough, wheezing, and pleuritic chest pain, Back: Negative for injury and pain, MS/Extremity: Negative for injury and deformity, Skin: Negative for injury, rash, and discoloration, Neuro: Negative for headache, weakness, numbness, tingling, and seizure, 14:41 Abdomen/GI: Positive for abdominal pain, nausea and vomiting, Negative for diarrhea, constipation, 14:41 All other systems are negative, Exam: 14:41 Constitutional: This is a well developed, well nourished patient who is awake, alert, jh7 and in no acute distress. Head/Face: Normocephalic, atraumatic. Neck: Trachea midline, no thyromegaly or masses palpated, and no cervical lymphadenopathy. Supple, full range of motion without nuchal rigidity, or vertebral point tenderness. No Meningismus. Cardiovascular: Regular rate and rhythm with a normal S1 and S2. No gallops, murmurs, or rubs. Normal PMI, no JVD. No pulse deficits. Respiratory: Lungs have equal breath sounds bilaterally, clear to auscultation and percussion. No rales, rhonchi or wheezes noted. No increased work of breathing, no retractions or nasal flaring. Back: No spinal tenderness. No costovertebral tenderness. Full range of motion. Skin: Warm, dry with normal turgor. Normal color with no rashes, no lesions, and no evidence of cellulitis. MS/ Extremity: Pulses equal, no cyanosis. Neurovascular intact. Full, normal range of motion. Neuro: Awake and alert, GCS 15, oriented to person, place, time, and situation. Motor strength 5/5 in all extremities. Sensory grossly intact. Normal gait. 14:41 Abdomen/GI: Inspection: abdomen appears normal, Bowel sounds: normal, Palpation: soft, mild abdominal tenderness, in the right upper quadrant, Vital Signs: 14:40 BP 139 / 93; Pulse 95; Resp 18; Temp 97.1(TE); Pulse Ox 99% on R/A; Weight 65.77 kg; cm10 Height 4 ft. 11 in. ; Pain 7/10; 15:54 BP 132 / 85; Pulse 74; Resp 16; Pulse Ox 100% on R/A; mb9 17:26 BP 131 / 86; Pulse 75; Resp 18; Pulse Ox 100% on R/A; mb9 19:00 BP 125 / 85; Pulse 107; Pulse Ox 100% on R/A; km8 14:40 Body Mass Index 29.29 (65.77 kg, 149.86 cm) cm10 14:40 Pain Scale: Adult cm10 MDM: 14:27 Patient medically screened. [facility] 19:45 Differential diagnosis: cholecystitis, Cholelithiasis, gastritis, pancreatitis, [facility] Pyelonephritis, Gastroenteritis. Data reviewed: vital signs, nurses notes, lab test result(s), radiologic studies, CT scan, ultrasound. Consideration of Admission/Observation Escalation of care including admission/observation considered. I considered the following discharge prescriptions or medication management in the emergency department Medications were administered in the Emergency Department. See MAR. Counseling: I had a detailed discussion with the patient and/or guardian regarding the historical points, exam findings, and any diagnostic results supporting the discharge/admit diagnosis, to return to the emergency department if symptoms worsen or persist or if there are any questions or concerns that arise at home. Response to treatment: the patient's symptoms have markedly improved after treatment. Special discussion:. ED course: The patient remained hemodynamically stable throughout the ER visit. I reviewed the patient's labs and imaging with her. Confirmed history of leukocytosis on previous visits. The patient significantly improved after pain medicine and nausea medicine. She passed a p.o. challenge and stated that she felt much better at discharge. She stated that she forgot to mention that she had had diarrhea all day with the vomiting. She states that she feels like she probably has a stomach bug and has had recent sick contacts. Strict return precautions if symptoms worsen, or any new concerning symptoms develop.. 04/04 14:44 Order name: CBC with Diff; Complete Time: 15:48 [facility] 04/04 14:44 Order name: CMP; Complete Time: 15:41 [facility] 04/04 14:44 Order name: Lipase; Complete Time: 15:41 [facility] 04/04 14:44 Order name: Test, Urine; Complete Time: 18:37 [facility] 04/04 14:44 Order name: Urinalysis w/ reflexes; Complete Time: 18:37 [facility] 04/04 15:48 Order name: Test, Serum; Complete Time: 16:31 [facility] 04/04 14:44 Order name: CT Abd/Pelvis - IV Contrast Only; Complete Time: 17:36 [facility] 04/04 17:36 Order name: US Abdomen Limited; Complete Time: 19:45 [facility] 04/04 14:44 Order name: IV Saline Lock; Complete Time: 14:56 [facility] 04/04 14:44 Order name: Labs collected and sent; Complete Time: 14:56 [facility] 04/04 19:15 Order name: PO challenge; Complete Time: 19:21 [facility] Administered Medications: 15:03 Drug: NS 0.9% IV 1000 ml IV at 1 bolus Per protocol; 1000 mL bolus Route: IV; Rate: 1 mb9 bolus; Site: right antecubital; 19:58 Follow up: Response: No adverse reaction; IV Status: Completed infusion; IV Intake: km8 1000ml 15:03 Drug: Ondansetron IVP 4 mg IVP once; over 2 minutes Route: IVP; Site: right antecubital;mb9 19:58 Follow up: Response: No adverse reaction km8 15:03 Drug: morphine IVP or IV 4 mg IVP once over 4 mins Route: IVP; Infused Over: 4 mins; mb9 Site: right antecubital; 19:58 Follow up: Response: No adverse reaction km8 19:50 Drug: Ondansetron IVP 4 mg IVP once; over 2 minutes Route: IVP; Site: right antecubital;km8 19:58 Follow up: Response: No adverse reaction km8 19:50 Drug: Ketorolac IVP 30 mg IVP once Route: IVP; Site: right antecubital; km8 19:58 Follow up: Response: No adverse reaction km8 Disposition: 04/05 09:42 Co-signature as Attending Physician, Karan eRina MD I reviewed the patient's care rn provided by the Advanced Practice Provider and agree with the diagnosis and treatment plan. Disposition Summary: 04/04/23 19:44 Discharge Ordered Notes: Location: Home [facility] Problem: new [facility] Symptoms: have improved [facility] Condition: Stable [facility] Diagnosis - Gastroenteritis [facility] Followup: [facility] - With: Private Physician - When: 2 - 3 days - Reason: Recheck today's complaints Discharge Instructions: - Discharge Summary Sheet [facility] - Nausea and Vomiting, Adult [facility] - Viral Gastroenteritis, Adult [facility] Forms: - Medication Reconciliation Form [facility] - Thank You Letter [facility] - Patient Portal Instructions [facility] - Leadership Thank You Letter [facility] Prescriptions: - ondansetron 4 mg Oral Tablet,disintegrating - take 1 tablet ORAL route every 4-6 hours As needed; 20 tablet; Refills: 0, [facility] Product Selection Permitted - Levsin 0.125 mg Oral Tablet - take 1 tablet ORAL route every 8 hours; 30 tablet; Refills: 0, Product [facility] Selection Permitted Signatures: Dispatcher [employer] Karan Shirley MD MD rn Hadash, Jennifer, FNP FNP [facility] Alisa Yap RN RN mb9 Carole Salas RN RN cm10 Kari Weaver RN RN km8
--- NOTE | 2023-04-04 19:44 | ER ---
Nurse's Notes [facility] Name: Radha Kuhn Age: 22 yrs Sex: Female : 2000 Arrival Date: 04/04/2023 Time: 14:21 Bed 6 Private MD: Diagnosis: Gastroenteritis Presentation: 04/04 14:40 Chief complaint: Patient states: RUQ abdominal pain onset yesterday. Pt states that the cm10 pain has been intermittent. Pt states that she has gallstones. Coronavirus screen: Vaccine status: Patient reports receiving the 2nd dose of the covid vaccine. Client denies travel out of the [place] in the last 14 days. Ebola Screen: Patient denies travel to an Ebola-affected area in the 21 days before illness onset. No symptoms or risks identified at this time. Initial Sepsis Screen: Does the patient meet any 2 criteria? No. Patient's initial sepsis screen is negative. Does the patient have a suspected source of infection? No. Patient's initial sepsis screen is negative. Risk Assessment: Do you want to hurt yourself or someone else? Patient reports no desire to harm self or others. Onset of symptoms was April 04, 2023. 14:40 Method Of Arrival: Ambulatory cm10 14:40 Acuity: BHAKTI 3 cm10 Historical: - Allergies: 14:41 No Known Allergies; cm10 - PMHx: 14:41 Anxiety; Bronchitis; Depression; Headaches; cm10 - PSHx: 14:41 left foot surgery; cm10 - Immunization history:: Adult Immunizations unknown. - Social history:: Smoking status: Reported history of juuling and/or vaping. Screenin:53 [facility] ED Fall Risk Assessment (Adult) History of falling in the last 3 months, mb9 including since admission No falls in past 3 months (0 pts) Confusion or Disorientation No (0 pts) Intoxicated or Sedated No (0 pts) Impaired Gait No (0 pts) Mobility Assist Device Used No (0 pt) Altered Elimination No (0 pt) Score/Fall Risk Level 0 - 2 = Low Risk Oriented to surroundings, Maintained a safe environment, Educated pt \T\ family on fall prevention, incl call for assistance when getting out of bed. Abuse screen: Denies threats or abuse. Nutritional screening: No deficits noted. Tuberculosis screening: No symptoms or risk factors identified. Assessment: 14:54 General: Appears in no apparent distress. Behavior is calm, cooperative. Pain: mb9 Complains of pain in abdomen Pain radiates to back Pain currently is 8 out of 10 on a pain scale. Quality of pain is described as throbbing, Pain began gradually, Is continuous. Neuro: Mei Agitation-Sedation Scale (RASS): 0 - Alert and Calm Level of Consciousness is awake, alert, obeys commands, Oriented to person, place, time, situation, Appropriate for age. Cardiovascular: Heart tones S1 S2 present Patient's skin is warm and dry. Respiratory: Airway is patent Respiratory effort is even, unlabored, Respiratory pattern is regular, symmetrical, Breath sounds are clear bilaterally. GI: Abdomen is round non-distended, Bowel sounds present X 4 quads. Abd is soft Abdomen is tender to palpation in right upper quadrant and right lower quadrant Reports nausea, vomiting. : No signs and/or symptoms were reported regarding the genitourinary system. EENT: No signs and/or symptoms were reported regarding the EENT system. Derm: Skin is pink, warm \T\ dry. Musculoskeletal: Range of motion: intact in all extremities. 15:55 Reassessment: Patient and/or family updated on plan of care and expected duration. Pain mb9 level reassessed. Patient is alert, oriented x 3, equal unlabored respirations, skin warm/dry/pink. Patient states feeling better. Patient states symptoms have improved. 16:53 Reassessment: pt taken to CT via wheelchair. mb9 17:30 Reassessment: Patient and/or family updated on plan of care and expected duration. Pain mb9 level reassessed. Patient is alert, oriented x 3, equal unlabored respirations, skin warm/dry/pink. Patient states feeling better. Patient states symptoms have improved. 19:18 Reassessment: Patient appears in no apparent distress at this time. No changes from km8 previously documented assessment. Patient and/or family updated on plan of care and expected duration. Pain level reassessed. Patient is alert, oriented x 3, equal unlabored respirations, skin warm/dry/pink. pt denies any needs at this time. 19:40 Reassessment: pt tolerated PO challenge without vomiting or feel nauseated . km8 Vital Signs: 14:40 BP 139 / 93; Pulse 95; Resp 18; Temp 97.1(TE); Pulse Ox 99% on R/A; Weight 65.77 kg; cm10 Height 4 ft. 11 in. ; Pain 7/10; 15:54 BP 132 / 85; Pulse 74; Resp 16; Pulse Ox 100% on R/A; mb9 17:26 BP 131 / 86; Pulse 75; Resp 18; Pulse Ox 100% on R/A; mb9 19:00 BP 125 / 85; Pulse 107; Pulse Ox 100% on R/A; km8 14:40 Body Mass Index 29.29 (65.77 kg, 149.86 cm) cm10 14:40 Pain Scale: Adult cm10 ED Course: 14:21 Patient arrived in ED. rg4 14:27 [facility] jh7 14:27 Karan Reina MD is Attending Physician. jh7 14:41 Triage completed. cm10 14:42 Arm band placed on Patient placed in an exam room, on a stretcher. cm10 14:43 Alisa Yap RN is Primary Nurse. mb9 14:53 Inserted saline lock: 20 gauge in right antecubital area, using aseptic technique. mb9 Blood collected. 14:54 Placed in gown. Bed in low position. Call light in reach. Side rails up X 1. Client mb9 placed on continuous cardiac and pulse oximetry monitoring. NIBP monitoring applied. 14:54 No provider procedures requiring assistance completed. mb9 14:56 CBC with Diff Sent. mb9 14:56 CMP Sent. mb9 14:56 Lipase Sent. mb9 14:56 Test, Urine Sent. mb9 14:56 Urinalysis w/ reflexes Sent. mb9 15:54 Test, Serum Sent. mb9 16:56 CT Abd/Pelvis - IV Contrast Only In Process Unspecified. EDMS 17:57 US Abdomen Limited In Process Unspecified. EDMS 19:57 Provided Education on: d/c teaching. km8 19:57 IV discontinued, intact, bleeding controlled, No redness/swelling at site. Pressure km8 dressing applied. Administered Medications: 15:03 Drug: NS 0.9% IV 1000 ml IV at 1 bolus Per protocol; 1000 mL bolus Route: IV; Rate: 1 mb9 bolus; Site: right antecubital; 19:58 Follow up: Response: No adverse reaction; IV Status: Completed infusion; IV Intake: km8 1000ml 15:03 Drug: Ondansetron IVP 4 mg IVP once; over 2 minutes Route: IVP; Site: right antecubital;mb9 19:58 Follow up: Response: No adverse reaction km8 15:03 Drug: morphine IVP or IV 4 mg IVP once over 4 mins Route: IVP; Infused Over: 4 mins; mb9 Site: right antecubital; 19:58 Follow up: Response: No adverse reaction km8 19:50 Drug: Ondansetron IVP 4 mg IVP once; over 2 minutes Route: IVP; Site: right antecubital;km8 19:58 Follow up: Response: No adverse reaction km8 19:50 Drug: Ketorolac IVP 30 mg IVP once Route: IVP; Site: right antecubital; km8 19:58 Follow up: Response: No adverse reaction km8 Medication: 14:54 VIS not applicable for this client. 9 Intake: 19:58 IV: 1000ml; Total: 1000ml. km8 Outcome: 19:44 Discharge ordered by . 7 19:57 Discharged to home ambulatory, km8 19:57 Condition: good 19:57 Discharge instructions given to patient, Instructed on discharge instructions, follow up and referral plans. medication usage, Demonstrated understanding of instructions, follow-up care, medications, Prescriptions given X 2, 19:59 Patient left the ED. km8 Signatures: Dispatcher [employer] Brittnee Guillen rg4 Brooke Christensen, CHIEF MEDICAL DIRECTOR CHIEF MEDICAL DIRECTOR Alisa Royal RN RN mb9 Carole Salas RN RN cm10 Kari Weaver RN RN km8
[2023-04-04] MEDS ORDERED: KETOROLAC 30 MG/ML INJ ONE (19:59)
[2023-04-04 20:04] VITALS: TEMP 97.1
[2023-04-04 20:05] VITALS: O2SAT 100
[2023-04-04 20:08] VITALS: BP 125/85
== END 2023-04-04 19:59 | disposition home or self-care (01) ==
LOC: ER 14:21
DX: K52.9 Noninfective gastroenteritis and colitis, unspecified (principal)
CPT/HCPCS: 96361; 85025; 36415; 84703; 81025; 81003; 83690; 80053; 74177; 76705; 96375; 96374; 99284; Q9967; J2405 ×2; J7030

== ENCOUNTER 2023-09-07 16:38 | Emergency (ER) | payer SELFPAY ==
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
--- NOTE | 2023-09-07 17:56 | RAD REPORT ---
EXAM DESCRIPTION: RAD - Lumbar Spine 3 Views - 09/07/2023 5:44 pm CLINICAL HISTORY: PAIN Radiculopathy COMPARISON: <Comparisons> FINDINGS: Vertebral body heights appear maintained. No compression fracture noted. Mild disc space n arrowing L5-S1. No spondylolysis or spondylolisthesis. IMPRESSION: No acute process seen.
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
[2023-09-07] MEDS ORDERED: HYDROCODONE/APAP 5/325 MG TAB ONE (18:41)
[2023-09-07 20:07] VITALS: BP 115/74; TEMP 97.7; O2SAT 99
== END 2023-09-07 18:50 | disposition home or self-care (01) ==
LOC: ER 16:38
DX: M54.50 Low back pain, unspecified (principal)
CPT/HCPCS: 72100

== ENCOUNTER 2024-10-14 11:51 | Emergency (ER) | payer SELFPAY ==
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
[2024-10-14] MEDS ORDERED: ONDANSETRON 4 MG/2 ML VIAL ONE ×2 (12:41→14:04)
[2024-10-14] MEDS ORDERED: NA CHLORIDE 0.9% 1,000 ML ONE (12:42)
[2024-10-14] MEDS ORDERED: NA CHLORIDE 0.9% 50 ML ONE (12:42)
[2024-10-14] MEDS ORDERED: HALOPERIDOL LACT 5 MG/ML INJ ONE (12:42)
[2024-10-14 13:00] LABS: Absolute Basophils 0.1 K/uL (0-0.5); Absolute Lymphocytes (CBC) 2.2 K/uL (0.7-4.9); Absolute Monocytes 1.4 K/uL (0.1-1.3); Absolute Neutrophil 17.5 K/uL (1.8-8.0); Basophils % 0.5 % (0-1.3); Hematocrit 45.7 % (36.0-45.0); Hemoglobin 15.5 g/dL (12.0-15.0); Lymphocytes % 10.4 % (15.3-44.8); MCH 31.3 pg (27.0-35.0); MCHC 33.9 g/dL (32.0-36.0); MCV 92.2 fL (80-100); MPV 10.6 fL (7.6-11.3); Monocytes % 6.6 % (3.3-12.3); Neutrophils % 82.5 % (41.7-73.7); Nucleated Red Blood Cells % 0.1 % (0-0); Platelets 308 thou/uL (152-406); RBC Red Blood Cell Count 4.95 M/uL (3.86-4.86); Red Cell Distribution Width 14.3 % (12.1-15.2)
[2024-10-14 13:44] LABS: Blood Morphology Comment NOT SEEN (NOT SEEN); Differential Total Cells Count 100; Lymphocytes 6 % (15-42); Monocytes 6 % (0-10); Platelet Estimate ADEQ; Segmented Neutrophils 88 % (40-80)
[2024-10-14 13:52] LABS: Albumin 3.7 g/dL (3.4-5.0); Albumin/Globulin Ratio 1.1 (1.1-1.8); Anion Gap 8.2 mEq/L (5.0-15.0); Bilirubin Total 0.8 mg/dL (0.2-1.0); Globulin 3.4 g/dL (2.3-3.5); Potassium 3.2 mEq/L (3.5-5.1); Protein, Total 7.1 g/dL (6.4-8.2)
[2024-10-14] MEDS ORDERED: POTASSIUM CL SA 10 MEQ TAB PO ONE (14:04)
--- NOTE | 2024-10-14 14:29 | RAD REPORT ---
EXAM: Chest Pa And Lat (2 Views) HISTORY: 24 years Female PAIN COMPARISON: 01/02/2023 FINDINGS: LUNGS/PLEURA: The lungs are clear. No pleural effusions or pneumothorax. No pulmonary edema. CARDIAC/MEDIASTINUM: The cardiac silhouette is within normal limits. UPPER ABDOMEN: No significant abnormality. BONES: No acute abnormality. LINES/TUBES/OTHER: N/A IMPRESSION: No evidence of acute cardiopulmonary disease. No significant change from prior.
[2024-10-14 15:24] LABS: Urine Bacteria <20 /HPF (<20); Urine Mucus 2+ /HPF (None Seen)
[2024-10-14 15:27] LABS: Specific Gravity > 1.030 (1.005-1.030); Urine Bilirubin NEGATIVE (Negative); Urine Blood 3+ (OVER) (Negative); Urine Clarity Turbid (Clear); Urine Color Light-Orange (Yellow); Urine Glucose NEGATIVE (Negative); Urine Ketones 4+ (Over) (Negative); Urine Microscopic Reflex YN NO UMIC; Urine Nitrite NEGATIVE (Negative); Urine Protein 2+ (Negative); Urine Urobilinogen Normal (Normal)
[2024-10-14 15:45] LABS: Urine Culture Reflex Order NOT NEEDED
--- NOTE | 2024-10-14 15:57 | ER ---
Nurse's Notes [facility] Name: Radha Kuhn Age: 24 yrs Sex: Female : 2000 Arrival Date: 10/14/2024 Time: 11:51 Bed 5 Private MD: Diagnosis: Nausea with vomiting, unspecified;UTI/ Urinary tract infection, site not specified Presentation: 10/14 12:14 Chief complaint: Patient states: N/V, weak, fatigue since . Coronavirus screen: ll1 Client denies travel out of the [place] in the last 14 days. At this time, the client does not indicate any symptoms associated with coronavirus-19. Ebola Screen: Patient denies travel to an Ebola-affected area in the 21 days before illness onset. Initial Sepsis Screen: Does the patient meet any 2 criteria? No. Patient's initial sepsis screen is negative. Does the patient have a suspected source of infection? No. Patient's initial sepsis screen is negative. Risk Assessment: Do you want to hurt yourself or someone else? Patient reports no desire to harm self or others. Onset of symptoms was October 12, 2024. 12:14 Method Of Arrival: Ambulatory ll1 12:14 Acuity: BHAKTI 3 ll1 Triage Assessment: 12:14 General: Appears uncomfortable, Behavior is calm, cooperative, appropriate for age, ll1 Reports fatigue for. Neuro: Reports weakness. GI: Reports cramping, nausea, vomiting. 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 - Infectious Disease History:: Denies. - Social history:: Smoking status: Patient reports the use of cigarette tobacco products, denies chronic smoking, but will smoke occasionally, Reported history of juuling and/or vaping. Screenin:39 [facility] ED Fall Risk Assessment (Adult) History of falling in the last 3 months, mb9 including since admission No falls in past 3 months (0 pts) Confusion or Disorientation No (0 pts) Intoxicated or Sedated No (0 pts) Impaired Gait No (0 pts) Mobility Assist Device Used No (0 pt) Altered Elimination No (0 pt) Score/Fall Risk Level 0 - 2 = Low Risk Oriented to surroundings, Maintained a safe environment, Educated pt \\T\\ family on fall prevention, incl call for assistance when getting out of bed. Abuse screen: Denies threats or abuse. Nutritional screening: No deficits noted. Tuberculosis screening: No symptoms or risk factors identified. Assessment: 12:38 General: Appears uncomfortable, Behavior is cooperative. Pain: Denies pain. Neuro: mb9 Mei Agitation-Sedation Scale (RASS): 0 - Alert and Calm Level of Consciousness is awake, alert, obeys commands, Oriented to person, place, time, situation, Appropriate for age. Cardiovascular: Patient's skin is warm and dry. Respiratory: Airway is patent Respiratory effort is even, unlabored, Respiratory pattern is regular, symmetrical. GI: Abdomen is round non-distended, Bowel sounds present X 4 quads. Abd is soft and non tender X 4 quads. Reports nausea, vomiting. : No signs and/or symptoms were reported regarding the genitourinary system. EENT: No signs and/or symptoms were reported regarding the EENT system. Derm: Skin is pink, warm \\T\\ dry. Musculoskeletal: Range of motion: intact in all extremities. 13:38 Reassessment: Patient appears in no apparent distress at this time. No changes from kc6 previously documented assessment. Patient and/or family updated on plan of care and expected duration. Pain level reassessed. Patient is alert, oriented x 3, equal unlabored respirations, skin warm/dry/pink. 14:29 Reassessment: Patient appears in no apparent distress at this time. No changes from kc6 previously documented assessment. Patient and/or family updated on plan of care and expected duration. Pain level reassessed. Patient is alert, oriented x 3, equal unlabored respirations, skin warm/dry/pink. 15:53 Reassessment: pt states "I don't want the CT, I want to leave." ERP notified. mb9 16:06 Reassessment: No changes from previously documented assessment. Patient and/or family mb9 updated on plan of care and expected duration. Pain level reassessed. Patient is alert, oriented x 3, equal unlabored respirations, skin warm/dry/pink. Vital Signs: 12:14 BP 142 / 97; Pulse 60; Resp 16; Temp 96.9(TE); Pulse Ox 99% ; Weight 68.04 kg; Height 4 ll1 ft. 11 in. ; Pain 0/10; 13:56 BP 142 / 90; Pulse 58; Resp 16; Pulse Ox 100% on R/A; mb9 16:06 BP 122 / 74; Pulse 69; Resp 18; Pulse Ox 100% ; mb9 12:14 Body Mass Index 30.30 (68.04 kg, 149.86 cm) ll1 12:14 Pain Scale: Adult ll1 ED Course: 11:59 Patient arrived in ED. sj2 11:59 [facility] Cort[facility]. dr5 11:59 Karan Reina MD is Attending Physician. dr5 12:14 Triage completed. ll1 12:14 Arm band placed on Patient placed in an exam room, on a stretcher. ll1 12:18 Gabi Denny RN is Primary Nurse. kc6 12:38 Primary Nurse role handed off by Gabi Denny, [place] mb9 12:38 Alisa Cervantes, [place] is Primary Nurse. mb9 12:38 Initial lab(s) drawn, by me, sent to lab. Inserted saline lock: 20 gauge in right mb9 antecubital area, using aseptic technique. Blood collected. Flushed with 10 mL NS. 12:39 Placed in gown. Bed in low position. Call light in reach. Side rails up X 1. Provided mb9 Education on: press call light if needing anything. Client placed on continuous cardiac and pulse oximetry monitoring. NIBP monitoring applied. Door closed. Noise minimized. Warm blanket given. Pillow given. 12:39 No provider procedures requiring assistance completed. mb9 12:50 personnel monitor on. mb9 12:50 CBC with Diff Sent. mb9 12:50 CMP Sent. mb9 12:50 Lipase Sent. mb9 13:29 Lab(s) recollected, by me, sent to lab. kc6 13:58 Radiology exam delayed due to test not completed at this time. sm9 14:23 Chest Pa And Lat (2 Views) XRAY In Process Unspecified. EDMS 15:01 Radiology exam delayed due to test not completed at this time. sm9 16:07 IV discontinued, intact, bleeding controlled, No redness/swelling at site. Pressure mb9 dressing applied. Administered Medications: 12:45 Drug: Ondansetron IVP 4 mg IVP once; over 2 minutes Route: IVP; Site: right antecubital;mb9 13:28 Follow up: Response: No adverse reaction; Nausea is decreased; Vomiting decreased kc6 12:50 Drug: Haloperidol IVP 2.5 mg/50 mL 2.5 mg IVP once; Place patient on a conveyor monitor mb9 Route: IVP; Site: right antecubital; 13:28 Follow up: Response: No adverse reaction; Nausea is decreased; Vomiting decreased kc6 12:50 Drug: NS 0.9% IV 1000 ml IV at 1 bolus Per protocol; to be given as a bolus over 60 mb9 minutes Route: IV; Rate: 1 bolus; Site: right antecubital; 14:30 Follow up: Response: No adverse reaction; IV Status: Completed infusion; IV Intake: kc6 1000ml 14:13 Drug: Ondansetron IVP 4 mg IVP once; over 2 minutes Route: IVP; Site: right antecubital;mb9 15:00 Follow up: Response: No adverse reaction mb9 14:14 Drug: Potassium Chloride PO 40 mEq PO once Route: PO; mb9 14:59 Follow up: Response: No adverse reaction mb9 Medication: 12:39 VIS not applicable for this client. mb9 Intake: 14:30 IV: 1000ml; Total: 1000ml. kc6 Outcome: 15:57 Discharge ordered by . dr5 16:07 Discharged to home ambulatory, mb9 16:07 Condition: stable 16:07 Discharge instructions given to patient, Instructed on discharge instructions, follow up and referral plans. Demonstrated understanding of instructions, follow-up care, medications, Prescriptions given X 2, 16:07 Patient left the ED. mb9 Signatures: Dispatcher [employer] EDMS Erick Mcallister RN RN ll1 Gabi Denny RN RN kc6 Alisa Cervantes RN RN mb9 Britt Patterson 9 Dorota Javed2 Hema Cortes, ROLL GRINDER-C ROLL GRINDER-Cdr5
--- NOTE | 2024-10-14 15:57 | EDPHYS ---
Physician Documentation [facility] Name: Radha Kuhn Age: 24 yrs Sex: Female : 2000 Arrival Date: 10/14/2024 Time: 11:51 Bed 5 Private MD: ED Physician Karan Reina HPI: 10/14 17:19 This 24 yrs old Female presents to ER via Ambulatory with complaints of dr5 Vomiting. 17:19 Patient is a 24-year-old female with history of anxiety, depression coming in with dr5 nausea and vomiting since . Patient reports it [birth year] birthday and she went out had alcohol and smokes marijuana. Patient reports that she smokes marijuana daily about 3-4 times a day. Patient states that she has vomited all day yesterday and is not able to keep eating down. Patient denies any pain. EDGER AUTOMATIC: 12:39 LMP 10/14/2024, unknown mb9 Historical: - Allergies: 12:13 No Known Drug Allergies; ll1 - PMHx: 12:13 Anxiety; Bronchitis; Depression; Headaches; ll1 - PSHx: 12:13 left foot surgery; Tonsillectomy; ll1 - Immunization history:: Adult Immunizations up to date. - Infectious Disease History:: Denies. - Social history:: Smoking status: Patient reports the use of cigarette tobacco products, denies chronic smoking, but will smoke occasionally, Reported history of juuling and/or vaping. ROS: 17:19 Constitutional: as per hpi dr5 Exam: 17:19 Constitutional: This is a well developed, well nourished patient who is awake, alert, dr5 and in no acute distress. Head/Face: Normocephalic, atraumatic. Eyes: Pupils equal round and reactive to light, extra-ocular motions intact. Lids and lashes normal. Conjunctiva and sclera are non-icteric and not injected. Cornea within normal limits. Periorbital areas with no swelling, redness, or edema. Neck: Trachea midline, no thyromegaly or masses palpated, and no cervical lymphadenopathy. Supple, full range of motion without nuchal rigidity, or vertebral point tenderness. No Meningismus. Chest/axilla: Normal chest wall appearance and motion. Nontender with no deformity. No lesions are appreciated. Cardiovascular: Regular rate and rhythm with a normal S1 and S2. Normal PMI, no JVD. No pulse deficits. Respiratory: Lungs have equal breath sounds bilaterally, clear to auscultation. No rales, rhonchi or wheezes noted. No increased work of breathing, no retractions or nasal flaring. Back: No spinal tenderness. No costovertebral tenderness. Full range of motion. Skin: Warm, dry with normal turgor. Normal color with no rashes, no lesions, and no evidence of cellulitis. MS/ Extremity: Pulses equal, no cyanosis. Neurovascular intact. Full, normal range of motion. Neuro: Awake and alert, GCS 15, oriented to person, place, time, and situation. Cranial nerves II-XII grossly intact. Motor strength 5/5 in all extremities. Sensory grossly intact. Cerebellar exam normal. Normal gait. Vital Signs: 12:14 BP 142 / 97; Pulse 60; Resp 16; Temp 96.9(TE); Pulse Ox 99% ; Weight 68.04 kg; Height 4 ll1 ft. 11 in. ; Pain 0/10; 13:56 BP 142 / 90; Pulse 58; Resp 16; Pulse Ox 100% on R/A; mb9 16:06 BP 122 / 74; Pulse 69; Resp 18; Pulse Ox 100% ; mb9 12:14 Body Mass Index 30.30 (68.04 kg, 149.86 cm) ll1 12:14 Pain Scale: Adult ll1 MDM: 12:00 Medical Screening Exam initiated dr5 17:19 Differential Diagnosis sepsis, Cannabinoid hyperemesis syndrome, , electrolyte dr5 abnormality. Data reviewed: vital signs, nurses notes, lab test result(s). I considered the following discharge prescriptions or medication management in the emergency department Medications were administered in the Emergency Department. See MAR. Care significantly affected by the following chronic conditions: Anxiety and depression. Care significantly affected by the following Social Determinants of Health: Poor access to healthcare and/or lack of insurance, Poor access to transportation, Misuse of alcohol and/or drugs, Problems related to employment. Counseling: I had a detailed discussion with the patient and/or guardian regarding the historical points, exam findings, and any diagnostic results supporting the discharge/admit diagnosis, the presence of at least one elevated blood pressure reading (>120/80) during this emergency department visit, lab results, radiology results, the need for outpatient follow up, for definitive care, a family practitioner, to return to the emergency department if symptoms worsen or persist or if there are any questions or concerns that arise at home. Medication response: Donte Garcia . Response to treatment: the patient's symptoms have resolved after treatment. ED course: Patient reports he is feeling much better. Nausea has resolved. Patient is able to tolerate p.o. Recommended to stop using marijuana. All questions answered. Waiting for test to be resulted by lab. Called several times and not able to get test in time and patient reports that she does not want CT scan. Will cancel CT scan and have patient come back if worsening conditions. Patient states that she is feeling much better and has no complaints at this time.. 10/14 12:38 Order name: CBC with Diff; Complete Time: 13:47 [facility] 10/14 12:38 Order name: CMP; Complete Time: 13:57 [facility] 10/14 12:38 Order name: Lipase; Complete Time: 13:57 [facility] 10/14 12:38 Order name: UA Rfx Antwan Cult if indicated; Complete Time: 15:46 [facility] 10/14 12:38 Order name: Test, Urine; Complete Time: 16:04 [facility] 10/14 13:05 Order name: Manual Differential; Complete Time: 13:47 EDMS 10/14 13:48 Order name: Chest Pa And Lat (2 Views) XRAY; Complete Time: 14:32 [facility] 10/14 12:38 Order name: IV Saline Lock; Complete Time: 12:50 [facility] 10/14 12:38 Order name: Labs collected and sent; Complete Time: 12:50 [facility] 10/14 13:05 Order name: Labs - recollect needed: green top - hemolyzed; Complete Time: 13:28 em1 Administered Medications: 12:45 Drug: Ondansetron IVP 4 mg IVP once; over 2 minutes Route: IVP; Site: right antecubital;mb9 13:28 Follow up: Response: No adverse reaction; Nausea is decreased; Vomiting decreased kc6 12:50 Drug: Haloperidol IVP 2.5 mg/50 mL 2.5 mg IVP once; Place patient on a manager monitoring mb9 Route: IVP; Site: right antecubital; 13:28 Follow up: Response: No adverse reaction; Nausea is decreased; Vomiting decreased kc6 12:50 Drug: NS 0.9% IV 1000 ml IV at 1 bolus Per protocol; to be given as a bolus over 60 mb9 minutes Route: IV; Rate: 1 bolus; Site: right antecubital; 14:30 Follow up: Response: No adverse reaction; IV Status: Completed infusion; IV Intake: kc6 1000ml 14:13 Drug: Ondansetron IVP 4 mg IVP once; over 2 minutes Route: IVP; Site: right antecubital;mb9 15:00 Follow up: Response: No adverse reaction mb9 14:14 Drug: Potassium Chloride PO 40 mEq PO once Route: PO; mb9 14:59 Follow up: Response: No adverse reaction mb9 Disposition Summary: 10/14/24 15:57 Discharge Ordered Notes: Location: Home dr5 Condition: Stable dr5 Diagnosis - Nausea with vomiting, unspecified dr5 - UTI/ Urinary tract infection, site not specified dr5 Followup: dr5 - With: Emergency Department - When: As needed - Reason: Worsening of condition Followup: dr5 - With: Private Physician - When: 1 - 2 days - Reason: Recheck today's complaints, Continuance of care, Re-evaluation by your physician Discharge Instructions: - Discharge Summary Sheet dr5 - Nausea and Vomiting, Adult dr5 - Urinary Tract Infection, Adult dr5 Forms: - Medication Reconciliation Form dr5 - Antibiotic Education dr5 - Patient Portal Instructions dr5 - Leadership Thank You Letter dr5 Prescriptions: - Cephalexin 500 mg Oral Capsule - take 1 capsule ORAL route every 12 hours for 10 days; 20 capsule; Refills: 0, dr5 Product Selection Permitted - Zofran 4 mg Oral Tablet - take 1 tablet ORAL route every 12 hours As needed; 20 tablet; Refills: 0, dr5 Product Selection Permitted Signatures: Dispatcher [employer] EDMS Chris Salas em1 Erick Mcallister, RN RN ll1 Alisa Cervantes, RN RN mb9 Hema Cortes, PILLOW CLEANER-C PILLOW CLEANER-Cdr5 Gabi Denny RN kc6 Corrections: (The following items were deleted from the chart) 12:39 12:39 CBC+H.LAB.BRZ ordered. EDMS EDMS 12:39 12:39 COMPREHENSIVE METABOLIC PANEL+C.LAB.BRZ ordered. EDMS EDMS 12:39 12:39 LIPASE+C.LAB.BRZ ordered. EDMS EDMS 12:39 12:39 UA Rfx Antwan Cult if indicated+U.LAB.BRZ ordered. EDMS EDMS 12:39 12:39 Test, Urine+UC.LAB.BRZ ordered. EDMS EDMS 13:48 13:48 Chest Pa And Lat (2 Views)+RAD.RAD.BRZ ordered. EDMS EDMS
[2024-10-14 16:00] LABS: Specific Gravity > 1.030 (1.005-1.030)
[2024-10-14 16:33] VITALS: TEMP 96.9
[2024-10-14 16:36] VITALS: O2SAT 100
[2024-10-14 16:37] VITALS: BP 122/74
== END 2024-10-14 16:07 | disposition home or self-care (01) ==
LOC: ER 11:51
DX: N39.0 Urinary tract infection, site not specified (principal)
CPT/HCPCS: 36415; 71046; 80053; 81003; 81025; 83690; 85025; 96361; 96374; 96375; 99285; J1630; J2405; J7030

== ENCOUNTER 2024-10-16 13:19 | Emergency (ER) | payer SELFPAY ==
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
[2024-10-16] MEDS ORDERED: FAMOTIDINE 20 MG/2 ML VIAL IV ONE (15:57)
[2024-10-16] MEDS ORDERED: NA CHLORIDE 0.9% 1,000 ML ONE (15:57)
[2024-10-16] MEDS ORDERED: ONDANSETRON 4 MG/2 ML VIAL ONE (15:57)
[2024-10-16 16:05] LABS: Absolute Basophils 0.1 K/uL (0-0.5); Absolute Lymphocytes (CBC) 1.7 K/uL (0.7-4.9); Absolute Monocytes 0.8 K/uL (0.1-1.3); Absolute Neutrophil 11.1 K/uL (1.8-8.0); Basophils % 0.7 % (0-1.3); Eosinophils % 0.3 % (0-4.4); Hematocrit 42.2 % (36.0-45.0); Hemoglobin 14.4 g/dL (12.0-15.0); Lymphocytes % 12.4 % (15.3-44.8); MCH 31.4 pg (27.0-35.0); MCHC 34.1 g/dL (32.0-36.0); MCV 91.8 fL (80-100); MPV 10.1 fL (7.6-11.3); Neutrophils % 80.6 % (41.7-73.7); Platelets 287 thou/uL (152-406); RBC Red Blood Cell Count 4.59 M/uL (3.86-4.86); Red Cell Distribution Width 13.6 % (12.1-15.2)
[2024-10-16 16:21] LABS: ALT/SGPT 19 U/L (13-56); Albumin 4.2 g/dL (3.4-5.0); Albumin/Globulin Ratio 1.2 (1.1-1.8); Alkaline Phosphatase 86 U/L (45-117); Anion Gap 10.5 mEq/L (5.0-15.0); BUN Blood Urea Nitrogen 14 mg/dL (7-18); Bicarbonate 26 mEq/L (21-32); Bilirubin Total 0.7 mg/dL (0.2-1.0); Globulin 3.6 g/dL (2.3-3.5); Glomerular Filtration Rate 125 ml/min (=/>90); Glucose Level 107 mg/dL (74-106); Lipase 22 U/L (13-75); Potassium 3.5 mEq/L (3.5-5.1); Protein, Total 7.8 g/dL (6.4-8.2); Sodium Level 139 mEq/L (136-145)
[2024-10-16 16:32] LABS: Specific Gravity > 1.030 (1.005-1.030)
[2024-10-16 16:40] LABS: AST/SGOT < 10 U/L (15-37)
[2024-10-16] MEDS ORDERED: PROMETHAZINE INJ 25 MG/ML AMP IM ONE (17:56)
--- NOTE | 2024-10-16 18:40 | RAD REPORT ---
EXAMINATION: Abdomen Pelvis W Contrast CLINICAL INDICATION: Female, 24 years old.nausea and vomiting TECHNIQUE: CT abdomen and pelvis was performed, after the administration of IV contrast, as per [facility] protocol. Axial, sagittal and coronal reconstructions were obtained. One or more of the following dose reduction techniques were used: Automated exposure control, adjustment of the mA and/o r kV according to patient size, and/or iterative reconstruction. Unless otherwise specified, incidental findings do not require dedicated imaging follow-up. [id number]. COMPARISON: 04/04/2023 FINDINGS: LOWER CHEST: No acute process identified.No significant pericardial effusion. Mild circumferential th ickening of the distal esophagus which could reflect esophagitis. UPPER GI: No significant abnormality. LIVER: No significant focal abnormality. Focal fat along the falciform. GALLBLADDER/BILE DUCTS: No biliary ductal dilatation.? PANCREAS: No mass, ductal dilation, or mayra-pancreatic fluid. SPLEEN: Unremarkable. ADRENALS: No adrenal masses. KIDNEYS AND URETERS: No hydronephrosis.No suspicious renal mass. ABDOMINAL AORTA AND OTHER VESSELS: Normal caliber aorta and IVC. PERITONEUM: No abnormal free fluid. No free air. LYMPH NODES: No pathologic lymphadenopathy. ABDOMINAL WALL: Unremarkable SMALL BOWEL/COLON: Small bowel has normal course and caliber. No colonic wall thickening or pericolon ic inflammatory changes.Normal appendix. URINARY BLADDER: Underdistended but grossly unremarkable. REPRODUCTIVE ORGANS: No pathologic process. MUSCULOSKELETAL: Mild disc height loss L5-S1. ADDITIONAL FINDINGS: None. IMPRESSION: No acute findings within the abdomen or pelvis. No appendicitis.
--- NOTE | 2024-10-16 18:58 | EDPHYS ---
Physician Documentation [facility] Name: Radha Kuhn Age: 24 yrs Sex: Female : 2000 Arrival Date: 10/16/2024 Time: 13:19 Bed 10 Private MD: ED Physician Ivon Mercado HPI: 10/16 13:50 This 24 yrs old Female presents to ER via Unassigned with complaints of ms3 Nausea/Vomiting, Possible Dehydration. 13:50 24-year-old female with no past medical history presents to the emergency department ms3 for nausea and vomiting that began early Wednesday morning. Patient states she is unable to keep fluids down. Patient states her discomfort is 7/10 and described as constant nausea and vomiting. Patient was seen in the emergency department on Wednesday and given Zofran without relief. Patient does endorse smoking chronic marijuana marijuana chronically and states warm showers do make her feel slightly better.. 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 - Infectious Disease History:: Denies. - Social history:: Smoking status: Reported history of juuling and/or vaping. Patient uses alcohol, occasionally. street drugs, marijuana. ROS: 13:50 Constitutional: Negative for fever, and chills. Cardiovascular: Negative for chest ms3 pain, and palpitations. Respiratory: Negative for shortness of breath, cough, wheezing, and pleuritic chest pain, 13:50 MS/Extremity: Negative for injury and deformity, Skin: Negative for injury, rash, and discoloration, 13:50 Abdomen/GI: Positive for nausea and vomiting, Exam: 13:50 Constitutional: This is a well developed, well nourished patient who is awake, alert, ms3 and in no acute distress. Chest/axilla: Normal chest wall appearance and motion. Nontender with no deformity. Cardiovascular: Regular rate and rhythm with a normal S1 and S2. No gallops, murmurs, or rubs. Normal PMI, no JVD. No pulse deficits. Respiratory: Lungs have equal breath sounds bilaterally, clear to auscultation and percussion. No rales, rhonchi or wheezes noted. No increased work of breathing, no retractions or nasal flaring. Abdomen/GI: Soft, non-tender, with normal bowel sounds. No distension or tympany. No guarding or rebound. No evidence of tenderness throughout. Skin: Warm, dry with normal turgor. Normal color with no rashes, no lesions, and no evidence of cellulitis. MS/ Extremity: Pulses equal, no cyanosis. Neurovascular intact. Full, normal range of motion. Vital Signs: 14:11 BP 138 / 96; Pulse 61; Resp 17; Temp 98; Pulse Ox 100% ; Weight 68.04 kg; Height 4 ft. ap3 11 in. ; 18:45 BP 117 / 69; Pulse 59; Resp 16; Pulse Ox 99% on R/A; ss 14:11 Body Mass Index 30.30 (68.04 kg, 149.86 cm) ap3 MDM: 13:49 Medical Screening Exam initiated ms3 13:50 Differential diagnosis: Nonspecific abd pain, gastritis, Cannabinoid hyperemesis ms3 syndrome. 17:49 Counseling: I had a detailed discussion with the patient and/or guardian regarding the ms3 presence of at least one elevated blood pressure reading (>120/80) during this emergency department visit. Special discussion: I have referred the patient to see his PCP for further evaluation of high blood pressure. 18:59 Data reviewed: radiologic studies, CT scan. ED course: I received the patient in gb1 turnover from Dr. Malhotra at [address] scan of the abdomen and pelvis. Patient has no acute findings on the CT abdomen pelvis and I will discharge her home as previously indicated and planned. Patient is been given as well as return precautions which she is compliant to prior discharge home today.. 10/16 13:40 Order name: CBC with Diff; Complete Time: 16:58 me3 10/16 13:40 Order name: CMP; Complete Time: 16:58 ms3 10/16 13:40 Order name: Lipase; Complete Time: 16:58 me3 10/16 13:41 Order name: Test, Urine; Complete Time: 16:58 me3 10/16 17:11 Order name: CT Abd/Pelvis - IV Contrast Only; Complete Time: 18:55 ms3 10/16 13:40 Order name: IV Saline Lock; Complete Time: 15:51 ms3 10/16 13:40 Order name: Labs collected and sent; Complete Time: 15:51 ms3 Administered Medications: 16:10 Drug: Famotidine IVP 20 mg IVP once; dilute with 10 mL 0.9% NaCl; give over 2 minutes jb4 Route: IVP; Site: right antecubital; 18:01 Follow up: Response: No adverse reaction; Marked relief of symptoms jb4 16:10 Drug: Ondansetron IVP 4 mg IVP once; over 2 minutes Route: IVP; Site: right antecubital;jb4 18:01 Follow up: Response: No adverse reaction; Marked relief of symptoms jb4 16:11 Drug: NS 0.9% IV 1000 ml IV at 1 bolus Per protocol; to be given as a bolus over 60 jb4 minutes Route: IV; Rate: 1 bolus; Site: right antecubital; 18:01 Follow up: Response: No adverse reaction; Marked relief of symptoms; IV Status: jb4 Completed infusion; IV Intake: 1000ml 18:01 Drug: Promethazine IM 12.5 mg IM once Route: IM; Site: left gluteus; jb4 Disposition Summary: 10/16/24 18:57 Discharge Ordered Notes: Location: Home gb1 Condition: Stable gb1 Diagnosis - Nausea with vomiting, unspecified gb1 - Elevated blood-pressure reading, without diagnosis of hypertension gb1 Followup: ms3 - With: John Choi DO - When: 2 - 3 days - Reason: Recheck today's complaints Discharge Instructions: - Discharge Summary Sheet ms3 - Nausea and Vomiting, Adult ms3 Forms: - Medication Reconciliation Form gb1 - Antibiotic Education gb1 - Prescription Opioid Use gb1 - Patient Portal Instructions gb1 - Leadership Thank You Letter gb1 Prescriptions: - promethazine 25 mg Rectal suppository - insert 1 suppository RECTAL route every 6 hours as needed for nausea and ms3 vomiting; 15 suppository; Refills: 0, Product Selection Permitted Signatures: Dispatcher [employer] EDMitesh Dubose RN RN jb4 Janae Matt RN RN ap3 Ilya Malhotra DO DO ms3 Ivon Mercado MD MD gb1 Corrections: (The following items were deleted from the chart) 13:40 13:40 CBC+H.LAB.BRZ ordered. EDMS EDMS 13:40 13:40 COMPREHENSIVE METABOLIC PANEL+C.LAB.BRZ ordered. EDMS EDMS 13:40 13:40 LIPASE+C.LAB.BRZ ordered. EDMS EDMS
--- NOTE | 2024-10-16 18:58 | ER ---
Nurse's Notes [facility] Name: Radha Kuhn Age: 24 yrs Sex: Female : 2000 Arrival Date: 10/16/2024 Time: 13:19 Bed 10 Private MD: Diagnosis: Nausea with vomiting, unspecified;Elevated blood-pressure reading, without diagnosis of hypertension Presentation: 10/16 14:11 Chief complaint: Patient states: she has been having nausea and vomiting that has ap3 gotten worse since she was evaluated on Wednesday. patient reports "i havent really eaten since , i think i am dehydrated.". Coronavirus screen: At this time, the client does not indicate any symptoms associated with coronavirus-19. Ebola Screen: No symptoms or risks identified at this time. Initial Sepsis Screen: Does the patient meet any 2 criteria? No. Patient's initial sepsis screen is negative. Does the patient have a suspected source of infection? No. Patient's initial sepsis screen is negative. Risk Assessment: Do you want to hurt yourself or someone else? Patient reports no desire to harm self or others. Onset of symptoms is unknown. 14:11 Method Of Arrival: Ambulatory ap3 14:11 Acuity: BHAKTI 3 ap3 Triage Assessment: 14:13 General: Appears in no apparent distress. Behavior is calm, cooperative, appropriate ap3 for age. General: Reports feeling ill for. Pain: Denies pain. Neuro: Level of Consciousness is awake, alert, obeys commands, Oriented to person, place, time, situation, Speech is normal. Cardiovascular: Patient's skin is warm and dry. Respiratory: Airway is patent Respiratory effort is even, unlabored, Respiratory pattern is regular, symmetrical. GI: Reports nausea, vomiting. 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 - Infectious Disease History:: Denies. - Social history:: Smoking status: Reported history of juuling and/or vaping. Patient uses alcohol, occasionally. street drugs, marijuana. Screenin:14 Abuse screen: Denies threats or abuse. Nutritional screening: No deficits noted. ap3 Tuberculosis screening: No symptoms or risk factors identified. 19:[address] [facility] ED Fall Risk Assessment (Adult) History of falling in the last 3 months, jb4 including since admission No falls in past 3 months (0 pts) Confusion or Disorientation No (0 pts) Intoxicated or Sedated No (0 pts) Impaired Gait No (0 pts) Mobility Assist Device Used No (0 pt) Altered Elimination No (0 pt) Score/Fall Risk Level 0 - 2 = Low Risk Oriented to surroundings, Maintained a safe environment. Assessment: 18:01 Reassessment: Patient appears in no apparent distress at this time. Patient and/or jb4 family updated on plan of care and expected duration. Pain level reassessed. Patient is alert, oriented x 3, equal unlabored respirations, skin warm/dry/pink. 18:45 Reassessment: Patient appears in no apparent distress at this time. Patient and/or ss family updated on plan of care and expected duration. Pain level reassessed. Patient is alert, oriented x 3, equal unlabored respirations, skin warm/dry/pink. Vital Signs: 14:11 BP 138 / 96; Pulse 61; Resp 17; Temp 98; Pulse Ox 100% ; Weight 68.04 kg; Height 4 ft. ap3 11 in. ; 18:45 BP 117 / 69; Pulse 59; Resp 16; Pulse Ox 99% on R/A; ss 14:11 Body Mass Index 30.30 (68.04 kg, 149.86 cm) ap3 ED Course: 13:23 Patient arrived in ED. cj3 13:27 Ilya Malhotra DO is Attending Physician. ms3 14:12 Triage completed. ap3 14:14 Arm band placed on right wrist. ap3 15:53 Inserted saline lock: 20 gauge in right antecubital area, using aseptic technique. am7 Blood collected. Flushed with 10 mL NS. 18:06 Attending Physician role handed off by Ilya Malhotra DO gb1 18:06 Ivon Mercado MD is Attending Physician. gb1 18:13 CT Abd/Pelvis - IV Contrast Only In Process Unspecified. EDMS 18:45 Virginia Gomez, [place] is Primary Nurse. ss 18:56 John Choi DO is Referral Physician. gb1 19:17 No provider procedures requiring assistance completed. IV discontinued, intact, jb4 bleeding controlled, No redness/swelling at site. Pressure dressing applied. Administered Medications: 16:10 Drug: Famotidine IVP 20 mg IVP once; dilute with 10 mL 0.9% NaCl; give over 2 minutes jb4 Route: IVP; Site: right antecubital; 18:01 Follow up: Response: No adverse reaction; Marked relief of symptoms jb4 16:10 Drug: Ondansetron IVP 4 mg IVP once; over 2 minutes Route: IVP; Site: right antecubital;jb4 18:01 Follow up: Response: No adverse reaction; Marked relief of symptoms jb4 16:11 Drug: NS 0.9% IV 1000 ml IV at 1 bolus Per protocol; to be given as a bolus over 60 jb4 minutes Route: IV; Rate: 1 bolus; Site: right antecubital; 18:01 Follow up: Response: No adverse reaction; Marked relief of symptoms; IV Status: jb4 Completed infusion; IV Intake: 1000ml 18:01 Drug: Promethazine IM 12.5 mg IM once Route: IM; Site: left gluteus; jb4 Intake: 18:01 IV: 1000ml; Total: 1000ml. jb4 Outcome: 18:57 Discharge ordered by . gb1 19:16 Discharged to home ambulatory, jb4 19:16 Condition: stable 19:16 Discharge instructions given to patient, Instructed on discharge instructions, follow up and referral plans. medication usage, Demonstrated understanding of instructions, follow-up care, medications, Prescriptions given X 1, 19:17 Patient left the ED. jb4 Signatures: Dispatcher [employer] EDMS Virginia Gomez RN RN Mitesh Amador RN RN jb4 Janae Matt RN RN ap3 Ilya Malhotra DO DO ms3 Ivon Mercado MD MD gb1 Rosa Joe am7 Brenda Ferraro cj3
[2024-10-16 19:27] VITALS: TEMP 98
[2024-10-16 19:33] VITALS: BP 117/69; O2SAT 99
== END 2024-10-16 19:17 | disposition home or self-care (01) ==
LOC: ER 13:19
DX: R11.2 Nausea with vomiting, unspecified (principal); R03.0 Elevated blood-pressure reading, without diagnosis of hypertension
CPT/HCPCS: 36415; 74177; 80053; 81025; 83690; 85025; 96361; 96372; 96374; 96375; 99284; J2405; J2550; J7030; Q9967

== ENCOUNTER 2025-01-09 12:02 | Emergency (ER) | payer SELFPAY ==
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
[2025-01-09 14:45] LABS: Urine Culture Reflex Order REFLEXED; Urine Microscopic Reflex YN ORDER UMIC; Urine WBC Clump Rare /HPF (None Seen); Urine Yeast (Budding) Trace /HPF (None Seen)
[2025-01-09] MEDS ORDERED: NA CHLORIDE 0.9% 2,000 ML ONE (14:57)
[2025-01-09] MEDS ORDERED: METOCLOPRAMIDE 10 MG/2mL INJ ONE (14:57)
[2025-01-09] MEDS ORDERED: NA CHLORIDE 0.9% 50 ML ONE (14:57)
--- NOTE | 2025-01-09 16:07 | ER ---
Nurse's Notes [facility] Name: Radha Kuhn Age: 24 yrs Sex: Female : 2000 Arrival Date: 01/09/2025 Time: 12:02 Bed 13 Private MD: Diagnosis: Nausea with vomiting, unspecified;Dehydration Presentation: 01/09 12:20 Chief complaint: N/V x 4 days. Recently took partial course of ABX for h. pylori. hb Coronavirus screen: At this time, the client does not indicate any symptoms associated with coronavirus-19. Ebola Screen: No symptoms or risks identified at this time. Initial Sepsis Screen: Does the patient meet any 2 criteria? No. Patient's initial sepsis screen is negative. Does the patient have a suspected source of infection? No. Patient's initial sepsis screen is negative. Risk Assessment: Do you want to hurt yourself or someone else? Patient reports no desire to harm self or others. Onset of symptoms was January 06, 2025. 12:20 Method Of Arrival: Ambulatory hb 12:20 Acuity: BHAKTI 3 hb Historical: - Allergies: 12:22 No Known Drug Allergies; hb - PMHx: 12:22 Anxiety; Bronchitis; Depression; Headaches; hb - PSHx: 12:22 left foot surgery; Tonsillectomy; hb Screenin:42 [facility] ED Fall Risk Assessment (Adult) History of falling in the last 3 months, iw including since admission No falls in past 3 months (0 pts) Confusion or Disorientation No (0 pts) Intoxicated or Sedated No (0 pts) Impaired Gait No (0 pts) Mobility Assist Device Used No (0 pt) Altered Elimination No (0 pt) Score/Fall Risk Level 0 - 2 = Low Risk Oriented to surroundings, Maintained a safe environment. Abuse screen: Denies threats or abuse. Nutritional screening: No deficits noted. Tuberculosis screening: No symptoms or risk factors identified. Assessment: 14:41 General: Appears in no apparent distress. Behavior is calm, cooperative. Pain: Denies iw pain. Neuro: Level of Consciousness is awake, alert, obeys commands, Oriented to person, place, time, situation, Moves all extremities. Full function. Cardiovascular: Patient's skin is warm and dry. Respiratory: Respiratory effort is even, unlabored. GI: Abdomen is non-distended, Reports nausea, vomiting. Derm: Skin is intact, is healthy with good turgor. Musculoskeletal: Range of motion: intact in all extremities. 15:46 Reassessment: Patient appears in no apparent distress at this time. pt retching, iw requesting to eat some crackers to help with nausea. 15:55 Reassessment: Patient appears in no apparent distress at this time. Patient and/or iw family updated on plan of care and expected duration. Pain level reassessed. Patient states feeling better. Patient states symptoms have improved. Vital Signs: 12:20 BP 140 / 95; Pulse 64; Resp 16; Temp 98(O); Pulse Ox 99% on R/A; Height 4 ft. 11 in. ; hb Pain 0/10; 12:20 Pain Scale: Adult hb ED Course: 12:03 Patient arrived in ED. mr 12:04 Lora Roa PA-C is PHCP. sb4 12:04 Michelle Choi MD is Attending Physician. sb4 12:22 Triage completed. hb 14:41 Madeline Giron, RN is Primary Nurse. iw 15:20 Inserted saline lock: 22 gauge in right hand, using aseptic technique. iw 15:46 Patient has correct armband on for positive identification. iw Administered Medications: 15:17 Drug: metoCLOPramide IVP 10 mg IVP once; over 1 to 2 minutes Route: IVP; Site: right iw hand; 16:00 Follow up: Response: No adverse reaction; Marked relief of symptoms iw 15:17 Drug: NS 0.9% IV 1000 ml IV at 1 bolus Per protocol; to be given as a bolus over 60 iw minutes Route: IV; Rate: 1 bolus; Site: right hand; 16:20 Follow up: IV Status: Completed infusion iw 15:55 Not Given (Patient Refused): ns 0.9% 1000 ml IV at 1 bolus Per protocol; to be given as iw a bolus over 60 minutes Outcome: 16:07 Discharge ordered by . sb4 16:20 Patient left the ED. iw Signatures: Alisa Rene, Reg Reg mr Madeline Giron, RN RN iw Carmita Orr RN RN Lora Roa PA-C PA-C sb4
--- NOTE | 2025-01-09 16:07 | EDPHYS ---
Physician Documentation [facility] Name: Radha Kuhn Age: 24 yrs Sex: Female : 2000 Arrival Date: 01/09/2025 Time: 12:02 Bed 13 Private MD: ED Physician Michelle Choi HPI: 01/09 18:45 This 24 yrs old Female presents to ER via Ambulatory with complaints of sb4 Vomiting. 18:45 Patient states she has been having some issues with nausea and vomiting. She saw GI a sb4 few weeks ago, had an endoscopy, and was told she had H. pylori. She was prescribed a course of antibiotics, however they made her nausea and vomiting worse. Her GI doctor told her to come to the ED today for IV hydration and she will restart a different round of antibiotics tomorrow. She does not want any labs done at this time, only hydration and antiemetics. States that she is tolerating small amounts of p.o. fluids today. Historical: - Allergies: 12:22 No Known Drug Allergies; hb - PMHx: 12:22 Anxiety; Bronchitis; Depression; Headaches; hb - PSHx: 12:22 left foot surgery; Tonsillectomy; hb ROS: 18:51 Constitutional: Negative for fever, chills, and weight loss, sb4 18:51 Abdomen/GI: Positive for nausea and vomiting, 18:51 All other systems are negative, Exam: 18:51 Constitutional: This is a well developed, well nourished patient who is awake, alert, sb4 and in no acute distress. Head/Face: Normocephalic, atraumatic. Eyes: Extra-ocular motions intact. Periorbital areas with no swelling, redness, or edema. Cardiovascular: Regular rate and rhythm with a normal S1 and S2. Respiratory: No increased work of breathing, no retractions or nasal flaring. Abdomen/GI: Soft, non-tender, no distension. Skin: Warm, dry with normal turgor. Normal color with no rashes, no lesions, and no evidence of cellulitis. 18:51 ENT: Mouth: Oral mucosa: dry, 18:51 Abdomen/GI: Vital Signs: 12:20 BP 140 / 95; Pulse 64; Resp 16; Temp 98(O); Pulse Ox 99% on R/A; Height 4 ft. 11 in. ; hb Pain 0/10; 12:20 Pain Scale: Adult hb MDM: 12:18 Medical Screening Exam initiated sb4 18:51 Differential diagnosis: Nonspecific abd pain, gastritis, pancreatitis, viral sb4 gastroenteritis, gastroenteritis. Data reviewed: vital signs, nurses notes, lab test result(s), and as a result, I will discharge patient. Test considered but Not performed: Labs: Patient refused labs at this time, only wants IV fluids. CT: Patient refuses imaging at this time, only wants IV fluids. 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 Refusal of service: The patient/guardian displays adequate decision making capability and despite a detailed discussion of alternatives, benefits, risks, and consequences refuses: CT Scan, all lab tests. Special discussion: Based on the patient's Hx, exam, and Dx evaluation, there is no indication for emergent surgery or inpatient Tx. It is understood by the patient/guardian that if the Sx's persist or worsen they need to return immediately for re-evaluation. ED course: Patient has 4+ ketones in her urine. I did recommend 2 L of IV hydration as well as labs, patient states she feels better after 1 L. To be discharged. Return precautions given, she understands and agreement with plan. Will follow-up with her GI doctor this week. 08 12:37 Order name: UA Rfx Antwan Cult if indicated; Complete Time: 14:46 sb4 01/09 12:37 Order name: Test, Urine; Complete Time: 14:45 sb4 01/09 14:49 Order name: Urine Culture EDMS Administered Medications: 15:17 Drug: metoCLOPramide IVP 10 mg IVP once; over 1 to 2 minutes Route: IVP; Site: right iw hand; 16:00 Follow up: Response: No adverse reaction; Marked relief of symptoms iw 15:17 Drug: NS 0.9% IV 1000 ml IV at 1 bolus Per protocol; to be given as a bolus over 60 iw minutes Route: IV; Rate: 1 bolus; Site: right hand; 16:20 Follow up: IV Status: Completed infusion iw 15:55 Not Given (Patient Refused): ns 0.9% 1000 ml IV at 1 bolus Per protocol; to be given as iw a bolus over 60 minutes Disposition Summary: 01/09/25 16:07 Discharge Ordered Notes: Location: Home sb4 Problem: new sb4 Symptoms: have improved sb4 Condition: Stable sb4 Diagnosis - Nausea with vomiting, unspecified sb4 - Dehydration sb4 Followup: sb4 - With: Emergency Department - When: As needed - Reason: Trouble breathing, Worsening of condition Discharge Instructions: - Discharge Summary Sheet sb4 - Dehydration, Adult sb4 - Nausea and Vomiting, Adult sb4 Forms: - Patient Portal Instructions sb4 - Leadership Thank You Letter sb4 Signatures: Dispatcher [employer] Madeline Kincaid, RN Carmita Dewitt RN RN hb Brown, Sophia, PABarbaraC PAGiselle sb4
[2025-01-09 16:24] VITALS: BP 140/95; TEMP 98; O2SAT 99
== END 2025-01-09 16:20 | disposition home or self-care (01) ==
LOC: ER 12:02
DX: R11.2 Nausea with vomiting, unspecified (principal); E86.0 Dehydration
CPT/HCPCS: 81001; 81025; 87086; 87088; 96361; 96374; 99284; J2765; J7030